=== PATIENT | female | born 1965 | race Caucasian/White ===

== ENCOUNTER → 2016-10-26 | Outpatient (CLI) | payer BC ==
--- NOTE | 2016-10-27 10:00 | MM ---
Reason for exam: screening (asymptomatic). Last mammogram was performed 1 year ago. History: Patient has history of other cancer at age 40. Family history of breast cancer in maternal aunt at age 65. Took hormonal contraceptives for 27 years beginning at age 19. Physical Findings: A clinical breast exam by your physician is recommended on an annual basis and results should be correlated with mammographic findings. MG 3D Screening Mammo W/Cad Bilateral CC and MLO view(s) were taken. Prior study comparison: November 04, 2015, left breast MG 3d work up w/cad LT. October 24, 2015, bilateral MG screening mammo w CAD. The breast tissue is heterogeneously dense. This may lower the sensitivity of mammography. Finding: There is a 4 mm obscured oval mass in the subareolar position of the right breast. Questionable distortion in the left upper outer quadrant. ASSESSMENT: Incomplete: need additional imaging evaluation, BI-RAD 0 RECOMMENDATION: Special view mammogram of the left breast. Ultrasound of the right breast. [facility] will attempt to contact patient to return for supplemental views and ultrasound.
== END | disposition home or self-care (01) ==
LOC: RADMAMWWP 16:57
PROVIDERS: ATTEND Obstetrics & Gynecology
DX: Z12.31 Encounter for screening mammogram for malignant neoplasm of breast (principal)
CPT/HCPCS: 77063; G0202

== ENCOUNTER → 2016-10-27 | Outpatient (CLI) | payer BC ==
--- NOTE | 2016-10-28 08:10 | MM ---
Reason for exam: additional evaluation requested from abnormal screening. Last mammogram was performed less than 1 month ago. History: Patient has history of other cancer at age 40. Family history of breast cancer in maternal aunt at age 65. Took hormonal contraceptives for 27 years beginning at age 19. Physical Findings: Nurse did not find any significant physical abnormalities on exam. MG 3D Work Up W/Cad LT CC and MLO view(s) were taken of the left breast. Prior study comparison: October 26, 2016, bilateral MG 3d screening mammo w/cad. November 04, 2015, left breast MG 3d work up w/cad LT. Finding: Architectural distortion in the upper outer quadrant of the left breast. These results were verbally communicated with the patient and result sheet given to the patient on 10/27/16. ASSESSMENT: Suspicious, BI-RAD 4 RECOMMENDATION: Surgical consultation and stereotactic core biopsy of the left breast. Called Dr. Graf with mammographic findings and has scheduled an appointment for the patient for 10/29/[address] Candelaria. PRELIMINARY REPORT CALLED AND FAXED TO DR. CANDELARIA ON 10/28/16 AT 300/TP.
--- NOTE | 2016-10-28 08:10 | USB ---
Reason for exam: additional evaluation requested from abnormal screening. History: Patient has history of other cancer at age 40. Family history of breast cancer in maternal aunt at age 65. Took hormonal contraceptives for 27 years beginning at age 19. US Breast Workup Limited RT Right breast ultrasound demonstrates no cystic or solid lesion seen. These results were verbally communicated with the patient and result sheet given to the patient on 10/28/16. ASSESSMENT: Probably benign, BI-RAD 3 RECOMMENDATION: Ultrasound of the right breast in 6 months.
== END | disposition home or self-care (01) ==
LOC: RADMAMWWP 14:19
PROVIDERS: ATTEND Obstetrics & Gynecology
DX: R92.8 Other abnormal and inconclusive findings on diagnostic imaging of breast (principal)
CPT/HCPCS: 76642; G0206; G0279

== ENCOUNTER → 2016-11-05 | Day surgery (SDC) | payer BC ==
--- NOTE | 2016-11-05 11:55 | USB ---
Reason for exam: additional evaluation requested from abnormal screening. History: Patient has history of other cancer at age 40. Family history of breast cancer in maternal aunt at age 65. Took hormonal contraceptives for 27 years beginning at age 19. US Breast Workup Limited LT Left breast ultrasound demonstrates a 0.21 x 0.15 x 0.29cm lesion too small to characterize at 1 o'clock. Targeted 6 month follow up recommended. These results were verbally communicated with the patient and result sheet given to the patient on 11/05/16. ASSESSMENT: Probably benign, BI-RAD 3 RECOMMENDATION: Follow-up diagnostic mammogram and ultrasound of the left breast in 6 months. (ultrasound can be targeted to [address]) [facility]
--- NOTE | 2016-11-05 14:43 | MM ---
EXAMINATION TYPE: MG discontinued stereo core LT DATE OF EXAM: 11/05/2016 10:46 AM COMPARISON: 10/26/2016, 10/27/2016, 09/05/2014 CLINICAL HISTORY: 51-year-old female referred for stereotactic core needle biopsy for architectural d istortion. TECHNIQUE and FINDINGS: The patient was placed on the stereotactic table and planning images were obtained. The questioned ar ea of architectural distortion in the upper outer quadrant could not be reproduced. There was no disc ernible target for biopsy. Findings were discussed with the patient. Ultrasound of the left upper outer quadrant is recommended . RECOMMENDATION: Left upper outer quadrant ultrasound.
== END ==
LOC: RADMAMWWP 08:33
PROVIDERS: ATTEND Surgery
DX: R92.8 Other abnormal and inconclusive findings on diagnostic imaging of breast (principal)

== ENCOUNTER 2016-11-14 18:01 | Emergency (ER) | payer BC ==
[2016-11-14 18:18] VITALS: BP 148/71; PULSE 68; RESP 20; TEMP 97.8
--- NOTE | 2016-11-14 18:55 | ED ---
General Adult HPI - General Chief complaint: Extremity Injury, Lower Stated complaint: Left ankle pain Time Seen by Provider: 11/14/16 18:52 Source: patient, RN notes reviewed Mode of arrival: ambulatory Limitations: no limitations - History of Present Illness Initial comments: This is a 51-year-old female presents with left ankle pain that started around 4 :30 PM. Patient states she is walking in her back yard and stepped in a hole rolling her ankle. Patient has been walking on the ankle but states the pain is increased. Patient is noticing swelling to the lateral aspect of the left ankle. Patient denies any numbness/weakness or tingling. Patient is not on any blood thinners.Patient denies any recent fever, chills, shortness breath, chest pain, abdominal pain, nausea/vomiting/diarrhea, back pain, hematuria, headache, or visual changes, or any other complaints. - Related Data Home Medications Medication Instructions Recorded Confirmed ALPRAZolam [Xanax] 0.25 mg PO BID PRN 04/16/14 11/11/14 Dicyclomine [Bentyl] 10 mg PO TID PRN 04/16/14 11/11/14 Famotidine [Pepcid] 10 mg PO DAILY PRN 04/16/14 11/11/14 Fluticasone/Salmeterol [Advair 1 puff INHALATION Q12HR 04/16/14 11/11/14 500-50 Diskus] Multivitamins, Thera [Multivitamin] 1 each PO DAILY 04/16/14 11/11/14 levETIRAcetam [Keppra] 500 mg PO Q12HR 04/16/14 11/11/14 Meclizine [Antivert] 25 mg PO Q8HR PRN 05/28/14 11/11/14 Albuterol Inhaler [Ventolin Hfa 2 inhalation INHALATION Q6H PRN 06/11/14 Inhaler] Cholecalciferol [Vitamin D3] 1 tab PO DAILY 06/11/14 11/11/14 Acetaminophen Tab [Tylenol] 325 mg PO DIRECTED PRN 11/05/14 11/11/14 Atenolol [Tenormin] 25 mg PO DAILY 11/05/14 11/11/14 Fluticasone Propionate [Flonase] 1 spray EA NOSTRIL DIRECTED PRN 11/05/1405/18 Levothyroxine Sodium [Synthroid] 25 mcg PO DAILY 11/05/14 11/11/14 Atenolol [Tenormin] 25 mg PO DAILY 11/11/14 11/11/14 Flecainide [Tambocor] 50 mg PO Q12HR 11/11/14 11/11/14 Previous Rx's Medication Instructions Recorded Cyclobenzaprine [Flexeril] 10 mg PO TID PRN #90 tab 06/12/14 Triamcinolone 0.1% Cream [Kenalog] 1 applicatio TOPICAL TID #60 gram 11/11/14 Allergies Allergy/AdvReac Type Severity Reaction Status Date / Time venom-honey bee Allergy Severe Swelling Verified 11/14/16 18:18 [bee venom (honey bee)] chlorhexidine Allergy Rash/Hives Verified 11/14/16 18:18 latex Allergy Rash/Hives, Verified 11/14/16 18:18 itching shellfish derived Allergy per Verified 11/14/16 18:18 allergy testing tramadol Allergy Nausea & Verified 11/14/16 18:18 Vomiting codeine AdvReac Confusion Verified 11/14/16 18:18 hydrocodone bitartrate AdvReac dizziness Verified 11/14/16 18:18 [From [place]] sulfamethoxazole AdvReac Rapid Verified 11/14/16 18:18 [From Bactrim] Heart Rate trimethoprim [From Bactrim] AdvReac Rapid Verified 11/14/16 18:18 Heart Rate adhesive steri-strips Allergy itching,wel Uncoded 11/14/16 18:18 ts shrimp Allergy per Uncoded 11/14/16 18:18 allergy testing narcotics AdvReac Nausea Uncoded 11/14/16 18:18 Review of Systems ROS Statement: Those systems with pertinent positive or pertinent negative responses have been documented in the HPI. ROS Other: All systems not noted in ROS Statement are negative. Past Medical History Past Medical History: Asthma, Cancer, Seizure Disorder Additional Past Medical History / Comment(s): colon CA, closed head injury 2004, "silent seizures", heart "regurgitation", dizziness, sometimes "low blood pressure", arthritis in neck, hx fx nose-sinus problems. History of Any Multi-Drug Resistant Organisms: None Reported Past Surgical History: Appendectomy, Bowel Resection, Section, Cholecystectomy, Orthopedic Surgery, Tonsillectomy Additional Past Surgical History / Comment(s): Lasik, rt foot bunionectomy, nasal surgery, HEART CATH Past Anesthesia/Blood Transfusion Reactions: Family History of Problems w/ Anesthesia, Motion Sickness, Postoperative Nausea & Vomiting (PONV) Additional Past Anesthesia/Blood Transfusion Reaction / Comment(s): dizziness and low BP, diff IV starts. pt mother has diff coming out of anesthesia. Past Psychological History: No Psychological Hx Reported Smoking Status: Never smoker Past Alcohol Use History: Rare Past Drug Use History: None Reported - Past Family History Father Family Medical History: Cancer Mother Family Medical History: Cancer Sister(s) Family Medical History: Cancer General Exam - General Exam Comments Initial Comments: General: The patient is awake and alert, in no distress, and does not appear acutely ill. Neck: The neck is supple, there is no tenderness or JVD. Cardiovascular: There is a regular rate and rhythm. No murmur, rub or gallop is appreciated. Respiratory: Lungs are clear to auscultation, respirations are non-labored, breath sounds are equal. No wheezes, stridor, rales, or rhonchi. Musculoskeletal: There is some mild tenderness to palpation over the lateral aspect of the left ankle with some localized swelling and faint ecchymosis to this area. Patient also has some tenderness to the anterior medial aspect of the left ankle that she states is worse than the pain on the lateral aspect of left ankle with palpation. There is no tenderness to palpation of the lateral aspect of the left foot. Full range of motion, strength 5/5 and Sensation intact. Dorsalis pedis and posterior tibial pulses are 2+ bilaterally. Capillary refill is normal at less than 2 seconds. Neurological: A&O x 3. CN II-XII intact, There are no obvious motor or sensory deficits. Coordination appears grossly intact. Speech is normal. Skin: Skin is warm and dry and no rashes or lesions are noted. Psychiatric: Normal mood and affect. Limitations: no limitations Course Vital Signs 11/14/16 18:16 Temperature 97.8 F Pulse Rate 68 Respiratory 20 Rate Blood Pressure 148/71 O2 Sat by Pulse 98 Oximetry Medical Decision Making - Medical Decision Making This is a 59-year-old female presents with left ankle pain since 4:30. On physical exam There is some mild tenderness to palpation over the lateral aspect of the left ankle with some localized swelling and faint ecchymosis to this area. Patient also has some tenderness to the anterior medial aspect of the left ankle that she states is worse than the pain on the lateral aspect of left ankle with palpation. There is no tenderness to palpation of the lateral aspect of the left foot. Full range of motion, strength 5/5 and Sensation intact. Dorsalis pedis and posterior tibial pulses are 2+ bilaterally. Capillary refill is normal at less than 2 seconds. X-rays of the left foot and ankle were done and reviewed showing: X-ray left foot: No acute abnormality of the left foot. X-ray Left ankle: Soft tissue swelling. No fracture seen. Reports read by Dr. Singh. I reviewed the x- ray and noticed a possible avulsion defect to the medial aspect of the talus and this correlates with the patient's maximal point tenderness. Discussed results with patient. At this time patient will be given a posterior OCL splint. I discussed nonweightbearing to left lower extremity and use of crutches. I discussed the patient should follow-up with orthopedics in the next 1-2 days. I discussed return parameters.A posterior OCL splint to the left lower extremity was placed. Neurovascular was rechecked and is intact. Patient was instructed to stay non-weightbearing to the left lower extremity. Patient was instructed to rest, ice, elevate and splint on until follow-up with orthopedics. . Patient will be given crutches. Discussed with patient to follow-up with orthopedics in the next 1-2 days. Please return to the [facility] symptoms worsen or for any other concerns. Patient was receptive to this plan and patient will be discharged home. Disposition Clinical Impression: Left ankle sprain Disposition: HOME SELF-CARE Condition: Good Instructions: Ankle Sprain (ED) Additional Instructions: Please rest, ice, elevate, and use splint for support. Please stay nonweightbearing to the left lower extremity and use crutches. Please use over- the-counter Motrin and/or Tylenol for pain. Please follow up with orthopedics tomorrow or as soon as possible. Please return to the [facility] for any worsening symptoms or for any further concerns. Referrals: Macario Cotton MD [Primary Care Provider] - 1-2 days Ramon Moss DO [Doctor of Osteopathic Medicine] - 1-2 days Time of Disposition: 19:27
--- NOTE | 2016-11-14 19:11 | XR ---
EXAMINATION TYPE: XR ankle complete LT DATE OF EXAM: 11/14/2016 7:02 PM COMPARISON: NONE HISTORY: Injury and pain TECHNIQUE: 3 views FINDINGS: There is soft tissue swelling over the lateral malleolus. Ankle mortise is anatomic. There is an Achilles calcaneal spur. IMPRESSION: Soft tissue swelling. No fracture seen.
--- NOTE | 2016-11-14 19:11 | XR ---
EXAMINATION TYPE: XR foot complete LT DATE OF EXAM: 11/14/2016 7:02 PM COMPARISON: NONE HISTORY: Injury and pain TECHNIQUE: 3 views FINDINGS: There is mild hallux valgus. I see no fracture nor dislocation. Metatarsals are intact. IMPRESSION: No acute abnormality of the left foot.
== END 2016-11-14 19:25 | disposition home or self-care (01) ==
LOC: EC 18:01
DX: S93.402A Sprain of unspecified ligament of left ankle, initial encounter (principal); J45.909 Unspecified asthma, uncomplicated; G40.909 Epilepsy, unspecified, not intractable, without status epilepticus; Z85.038 Personal history of other malignant neoplasm of large intestine; M13.88 Other specified arthritis, other site; Z79.51 Long term (current) use of inhaled steroids; Z79.899 Other long term (current) drug therapy; Z91.013 Allergy to seafood; Z91.040 Latex allergy status; Z91.030 Bee allergy status; Z88.2 Allergy status to sulfonamides; Z88.5 Allergy status to narcotic agent; Z88.6 Allergy status to analgesic agent; Z88.8 Allergy status to other drugs, medicaments and biological substances; Z91.09 Other allergy status, other than to drugs and biological substances; W17.2XXA Fall into hole, initial encounter; Y92.096 Garden or yard of other non-institutional residence as the place of occurrence of the external cause
CPT/HCPCS: 29515; 99283

== ENCOUNTER → 2016-11-24 | Outpatient (CLI) | payer BC ==
--- NOTE | 2016-11-24 18:19 | XR ---
EXAMINATION TYPE: XR KUB DATE OF EXAM: 11/24/2016 5:04 PM COMPARISON: 12/13/2013 HISTORY: Abdominal pain TECHNIQUE: 2 views FINDINGS: There is no sign of intestinal obstruction or pneumoperitoneum. Fecal pattern is normal. Th ere are clips from cholecystectomy. There is no sign of a mass. There are no pathologic calcification s over the kidneys. IMPRESSION: Nonacute abdomen. No change.
== END | disposition home or self-care (01) ==
LOC: RADXRMAIN 16:49
PROVIDERS: ATTEND Family Medicine
DX: K52.9 Noninfective gastroenteritis and colitis, unspecified (principal)
CPT/HCPCS: 74000

== ENCOUNTER 2016-12-27 19:50 | Emergency (ER) | payer BC ==
[2016-12-27] MEDS ORDERED: DIAZEPAM 5 MG/ML 2 ML SYRINGE IVP STA (20:16)
[2016-12-27] MEDS ORDERED: MECLIZINE 12.5 MG TAB PO STA (20:16)
--- NOTE | 2016-12-27 20:20 | ED ---
General Adult HPI - General Chief complaint: Chest Pain Stated complaint: Chest pain/Nausea Time Seen by Provider: 12/27/16 20:00 Source: patient, RN notes reviewed Mode of arrival: wheelchair Limitations: no limitations - History of Present Illness Initial comments: This is a 51-year-old female who presents to the emergency department complaining of sudden onset of dizziness and nausea. Patient states she has vomited as well. Patient states about 2 hours ago she was driving a car and all of a sudden she became very dizzy she says things felt like they were spinning became nauseated got home and walked into the house he was very unsteady on her feet she laid down the room was spinning and she began vomiting. Patient denies any headache patient denies any numbness or weakness. Patient states she has no blurred vision. Patient denies any chest pain or palpitations she says she does have a little tightness in her chest but no pain. Patient denies any fever chills or cough. Patient denies any history of vertigo. Patient denies any abdominal pain patient denies nausea vomiting diarrhea. - Related Data Home Medications Medication Instructions Recorded Confirmed ALPRAZolam [Xanax] 0.25 mg PO BID PRN 04/16/14 11/11/14 Dicyclomine [Bentyl] 10 mg PO TID PRN 04/16/14 11/11/14 Famotidine [Pepcid] 10 mg PO DAILY PRN 04/16/14 11/11/14 Fluticasone/Salmeterol [Advair 1 puff INHALATION Q12HR 04/16/14 11/11/14 500-50 Diskus] Multivitamins, Thera [Multivitamin 1 each PO DAILY 04/16/14 11/11/14 (formulary)] levETIRAcetam [Keppra] 500 mg PO Q12HR 04/16/14 11/11/14 Meclizine [Antivert] 25 mg PO Q8HR PRN 05/28/14 11/11/14 Albuterol Inhaler [Ventolin Hfa 2 inhalation INHALATION Q6H PRN 06/11/14 Inhaler] Cholecalciferol [Vitamin D3] 1 tab PO DAILY 06/11/14 11/11/14 Acetaminophen Tab [Tylenol] 325 mg PO DIRECTED PRN 11/05/14 11/11/14 Atenolol [Tenormin] 25 mg PO DAILY 11/05/14 11/11/14 Fluticasone Propionate [Flonase] 1 spray EA NOSTRIL DIRECTED PRN 11/05/1405/18 Levothyroxine Sodium [Synthroid] 25 mcg PO DAILY 11/05/14 11/11/14 Atenolol [Tenormin] 25 mg PO DAILY 11/11/14 11/11/14 Flecainide [Tambocor] 50 mg PO Q12HR 11/11/14 11/11/14 Previous Rx's Medication Instructions Recorded Cyclobenzaprine [Flexeril] 10 mg PO TID PRN #90 tab 06/12/14 Triamcinolone 0.1% Cream [Kenalog] 1 applicatio TOPICAL TID #60 gram 11/11/14 Meclizine [Antivert] 25 mg PO TID #20 tab 12/27/16 Allergies Allergy/AdvReac Type Severity Reaction Status Date / Time venom-honey bee Allergy Severe Swelling Verified 12/27/16 20:05 [bee venom (honey bee)] chlorhexidine Allergy Rash/Hives Verified 12/27/16 20:05 latex Allergy Rash/Hives, Verified 12/27/16 20:05 itching shellfish derived Allergy per Verified 12/27/16 20:05 allergy testing tramadol Allergy Nausea & Verified 12/27/16 20:05 Vomiting codeine AdvReac Confusion Verified 12/27/16 20:05 hydrocodone bitartrate AdvReac dizziness Verified 12/27/16 20:05 [From [place]] sulfamethoxazole AdvReac Rapid Verified 12/27/16 20:05 [From Bactrim] Heart Rate trimethoprim [From Bactrim] AdvReac Rapid Verified 12/27/16 20:05 Heart Rate adhesive steri-strips Allergy itching,wel Uncoded 12/27/16 20:05 ts shrimp Allergy per Uncoded 12/27/16 20:05 allergy testing narcotics AdvReac Nausea Uncoded 12/27/16 20:05 Review of Systems ROS Statement: Those systems with pertinent positive or pertinent negative responses have been documented in the HPI. ROS Other: All systems not noted in ROS Statement are negative. Past Medical History Past Medical History: Asthma, Cancer, Seizure Disorder Additional Past Medical History / Comment(s): colon CA, closed head injury 2005, "silent seizures", heart "regurgitation", dizziness, sometimes "low blood pressure", arthritis in neck, hx fx nose-sinus problems. History of Any Multi-Drug Resistant Organisms: None Reported Past Surgical History: Appendectomy, Bowel Resection, Section, Cholecystectomy, Orthopedic Surgery, Tonsillectomy Additional Past Surgical History / Comment(s): Lasik, rt foot bunionectomy, nasal surgery, HEART CATH Past Anesthesia/Blood Transfusion Reactions: Family History of Problems w/ Anesthesia, Motion Sickness, Postoperative Nausea & Vomiting (PONV) Additional Past Anesthesia/Blood Transfusion Reaction / Comment(s): dizziness and low BP, diff IV starts. pt mother has diff coming out of anesthesia. Past Psychological History: No Psychological Hx Reported Smoking Status: Never smoker Past Alcohol Use History: Occasional Past Drug Use History: None Reported - Past Family History Father Family Medical History: Cancer Mother Family Medical History: Cancer Sister(s) Family Medical History: Cancer General Exam - General Exam Comments Initial Comments: GENERAL: Patient is well-developed and well-nourished. Patient is nontoxic and well- hydrated and is in mild distress. ENT: Neck is soft and supple. No significant lymphadenopathy is noted. Oropharynx is clear. Moist mucous membranes. Neck has full range of motion without eliciting any pain. EYES: The sclera were anicteric and conjunctiva were pink and moist. Extraocular movements were intact and pupils were equal round and reactive to light. Eyelids were unremarkable. PULMONARY: Unlabored respirations. Good breath sounds bilaterally. No audible rales rhonchi or wheezing was noted. CARDIOVASCULAR: There is a regular rate and rhythm without any murmurs gallops or rubs. ABDOMEN: Soft and nontender with normal bowel sounds. No palpable organomegaly was noted. There is no palpable pulsatile mass. SKIN: Skin is clear with no lesions or rashes and otherwise unremarkable. NEUROLOGIC: Patient is alert and oriented x3. Cranial nerves II through XII are grossly intact. Motor and sensory are also intact. Normal speech, volume and content. Symmetrical smile. MUSCULOSKELETAL: Normal extremities with adequate strength and full range of motion. LYMPHATICS: No significant lymphadenopathy is noted PSYCHIATRIC: Normal psychiatric evaluation. Normal interpersonal interactions appears functionally intact in deals appropriately with others. No signs of depression. No signs of anxiety. Limitations: no limitations Course Vital Signs 12/27/16 19:55 Temperature 97.6 F Pulse Rate 97 Respiratory 16 Rate Blood Pressure 168/89 O2 Sat by Pulse 99 Oximetry Medical Decision Making - Medical Decision Making EKG shows normal sinus rhythm at 71 bpm. It was 184 QRS is 88 QT interval 384 QTC is 417. Patient's EKG shows some flattening of the T waves in the precordial leads. Patient ambulated around the emergency department without problem and she stated she felt considerably better. CT of her brain showed no acute abnormality. Chest x-ray showed no acute abnormality - Lab Data Result diagrams: 12/27/16 20:37 12/27/16 20:37 Lab Results 12/27/16 12/27/16 12/27/16 Range/Units 20:37 20:37 20:37 WBC 6.8 (3.8-10.6) k/uL RBC 4.00 (3.80-5.40) m/uL Hgb 12.6 (11.4-16.0) gm/dL Hct 37.5 (34.0-46.0) % MCV 93.6 (80.0-100.0) fL MCH 31.4 (25.0-35.0) pg MCHC 33.6 (31.0-37.0) g/dL RDW 12.0 (11.5-15.5) % Plt Count 241 (150-450) k/uL Neutrophils % 58 % Lymphocytes % 30 % Monocytes % 7 % Eosinophils % 1 % Basophils % 1 % Neutrophils # 3.9 (1.3-7.7) k/uL Lymphocytes # 2.1 (1.0-4.8) k/uL Monocytes # 0.5 (0-1.0) k/uL Eosinophils # 0.1 (0-0.7) k/uL Basophils # 0.0 (0-0.2) k/uL PT (9.0-12.0) sec INR (<1.1) APTT (22.0-30.0) sec Sodium 142 (137-145) mmol/L Potassium 4.1 (3.5-5.1) mmol/L Chloride 105 (98-107) mmol/L Carbon Dioxide 26 (22-30) mmol/L Anion Gap 11 mmol/L BUN 14 (7-17) mg/dL Creatinine 0.70 (0.52-1.04) mg/dL Est GFR (MDRD) Af Amer >60 (>60 ml/min/1.73 sqM) Est GFR (MDRD) Non-Af >60 (>60 ml/min/1.73 sqM) Glucose 86 (74-99) mg/dL Calcium 9.1 (8.4-10.2) mg/dL Magnesium 1.9 (1.6-2.3) mg/dL Total Bilirubin 0.3 (0.2-1.3) mg/dL AST 19 (14-36) U/L ALT 24 (9-52) U/L Alkaline Phosphatase 64 (38-126) U/L Total Creatine Kinase 43 (30-135) U/L CK-MB (CK-2) 0.4 (0.0-2.4) ng/mL CK-MB (CK-2) Rel Index 0.9 Troponin I <0.012 (0.000-0.034) ng/mL Total Protein 6.9 (6.3-8.2) g/dL Albumin 4.1 (3.5-5.0) g/dL 12/27/16 Range/Units 20:37 WBC (3.8-10.6) k/uL RBC (3.80-5.40) m/uL Hgb (11.4-16.0) gm/dL Hct (34.0-46.0) % MCV (80.0-100.0) fL MCH (25.0-35.0) pg MCHC (31.0-37.0) g/dL RDW (11.5-15.5) % Plt Count (150-450) k/uL Neutrophils % % Lymphocytes % % Monocytes % % Eosinophils % % Basophils % % Neutrophils # (1.3-7.7) k/uL Lymphocytes # (1.0-4.8) k/uL Monocytes # (0-1.0) k/uL Eosinophils # (0-0.7) k/uL Basophils # (0-0.2) k/uL PT 10.0 (9.0-12.0) sec INR 1.0 (<1.1) APTT 25.2 (22.0-30.0) sec Sodium (137-145) mmol/L Potassium (3.5-5.1) mmol/L Chloride (98-107) mmol/L Carbon Dioxide (22-30) mmol/L Anion Gap mmol/L BUN (7-17) mg/dL Creatinine (0.52-1.04) mg/dL Est GFR (MDRD) Af Amer (>60 ml/min/1.73 sqM) Est GFR (MDRD) Non-Af (>60 ml/min/1.73 sqM) Glucose (74-99) mg/dL Calcium (8.4-10.2) mg/dL Magnesium (1.6-2.3) mg/dL Total Bilirubin (0.2-1.3) mg/dL AST (14-36) U/L ALT (9-52) U/L Alkaline Phosphatase (38-126) U/L Total Creatine Kinase (30-135) U/L CK-MB (CK-2) (0.0-2.4) ng/mL CK-MB (CK-2) Rel Index Troponin I (0.000-0.034) ng/mL Total Protein (6.3-8.2) g/dL Albumin (3.5-5.0) g/dL Disposition Clinical Impression: Vertigo Disposition: HOME SELF-CARE Condition: Good Instructions: Vertigo (ED) Prescriptions: Meclizine [Antivert] 25 mg PO TID #20 tab Referrals: Macario Cottno MD [Primary Care Provider] - 1-2 days Time of Disposition: 21:48
[2016-12-27] MEDS ORDERED: ONDANSETRON 4 MG/2 ML VIAL IVP STA (20:32)
[2016-12-27 20:53] LABS: Basophils % (A) 1 %; CH 31.5; CHCM 33.8; Eosinophils # (A) 0.1 k/uL (0-0.7); Eosinophils % (A) 1 %; HCT 37.5 % (34.0-46.0); HDW 2.41; HGB 12.6 gm/dL (11.4-16.0); Luc # (Auto) 0.24; Luc % (Auto) 4; Lymphocytes # (A) 2.1 k/uL (1.0-4.8); Lymphocytes % (A) 30 %; MCH 31.4 pg (25.0-35.0); MCHC 33.6 g/dL (31.0-37.0); MCV 93.6 fL (80.0-100.0); Monocytes # (A) 0.5 k/uL (0-1.0); Monocytes % (A) 7 %; Neutrophils # (A) 3.9 k/uL (1.3-7.7); Neutrophils % (A) 58 %; WBC 6.8 k/uL (3.8-10.6); WBC (Perox) 6.94
[2016-12-27 21:04] LABS: Partial Thromboplastin Time 25.2 sec (22.0-30.0)
--- NOTE | 2016-12-27 21:16 | CT ---
EXAMINATION TYPE: CT brain wo con DATE OF EXAM: 12/27/2016 9:02 PM COMPARISON: 05/10/2013 HISTORY: Patient complains of dizziness, nausea, and vomiting. CT DLP: 750.9 mGycm Automated exposure control for dose reduction was used. FINDINGS: Ventricles and sulci appear normal. There is no mass effect nor midline shift. There is no sign of in tracranial hemorrhage. The calvarium is intact. IMPRESSION: Negative unenhanced head CT scan. No change.
--- NOTE | 2016-12-27 21:20 | XR ---
EXAMINATION TYPE: XR chest 2V DATE OF EXAM: 12/27/2016 8:53 PM COMPARISON: 03/30/2016 HISTORY: Chest pain TECHNIQUE: Frontal and lateral views of the chest are obtained. FINDINGS: Heart and mediastinum are normal. Lungs are clear. Diaphragm is normal. Bony thorax is int act. Pulmonary vascularity is normal. There are chest leads. IMPRESSION: Normal chest. No change.
[2016-12-27 21:23] LABS: Creatine Kinase 43 U/L (30-135)
[2016-12-27 21:25] LABS: ALT 24 U/L (9-52); AST 19 U/L (14-36); Alkaline Phosphatase 64 U/L (38-126); Anion Gap 11 mmol/L; Blood Urea Nitrogen 14 mg/dL (7-17); Calcium 9.1 mg/dL (8.4-10.2); Carbon Dioxide 26 mmol/L (22-30); Chloride 105 mmol/L (98-107); Glucose 86 mg/dL (74-99); Magnesium 1.9 mg/dL (1.6-2.3); Non-African American GFR(MDRD) >60 (>60 ml/min/1.73 sqM); Potassium 4.1 mmol/L (3.5-5.1); Sodium 142 mmol/L (137-145); Total Bilirubin 0.3 mg/dL (0.2-1.3); Total Protein 6.9 g/dL (6.3-8.2)
[2016-12-27 21:35] LABS: Creatine Kinase MB 0.4 ng/mL (0.0-2.4); Troponin I <0.012 ng/mL (0.000-0.034)
[2016-12-27] MEDS ORDERED: ONDANSETRON 4 MG ODT STARTER PACK 2 TAB BTL PO STA (21:52)
[2016-12-27 22:11] VITALS: BP 123/68; PULSE 69; RESP 12; TEMP 97.1
== END 2016-12-27 22:37 | disposition home or self-care (01) ==
LOC: EC 19:50
DX: R42 Dizziness and giddiness (principal); G40.909 Epilepsy, unspecified, not intractable, without status epilepticus; Z98.61 Coronary angioplasty status; Z79.51 Long term (current) use of inhaled steroids; Z79.899 Other long term (current) drug therapy; Z85.038 Personal history of other malignant neoplasm of large intestine; Z88.5 Allergy status to narcotic agent; Z91.030 Bee allergy status; Z88.2 Allergy status to sulfonamides; Z88.8 Allergy status to other drugs, medicaments and biological substances
CPT/HCPCS: 36415; 93005; 80053; 82550; 82553; 83735; 84484; 85025; 85610; 85730; 71020; 70450; 96374; 96375; 99285; J3360; J2405; S0119

== ENCOUNTER → 2017-02-09 | Outpatient (CLI) | payer BC ==
--- NOTE | 2017-02-09 07:57 | CT ---
EXAMINATION TYPE: CT abdomen pelvis w con DATE OF EXAM: 02/09/2017 7:37 AM COMPARISON: 09/11/2011 HISTORY: Abd pain, history of carcinoid tumor CT DLP: 1076.9 mGycm CONTRAST: CT scan of the abdomen and pelvis is performed with Oral Contrast and with IV Contrast, patient injec lynnette with 100 mL of Omnipaque 300. FINDINGS: LUNG BASES-: No visible nodule. No infiltrate. LIVER/GB: Cholecystectomy clips are in place. No space occupying hepatic lesion. Biliary tree is of n ormal caliber. PANCREAS: No inflammation. No distinct mass. SPLEEN: No splenic enlargement. No lesion seen. ADRENALS: No nodule. No thickening. KIDNEYS/BLADDER: No hydronephrosis. No nephrolithiasis. No disctinct renal mass. Urinary bladder g rossly unremarkable. BOWEL: Partial right colectomy changes noted. No evidence for recurrent tumor. Normal bowel caliber. No inflammation. GENITAL ORGANS: Lobulated appearance of the uterus suggesting underlying leiomyomatous change. No ad nexal masses seen. LYMPH NODES: No greater than 1cm abdominal or pelvic lymph nodes are appreciated. AORTA: No significant abnormality. OSSEOUS STRUCTURES: No significant abnormality is seen. OTHER: No significant additional abnormality is seen. IMPRESSION: 1. No evidence of tumor recurrence or metastatic disease. 2. Leiomyomatous change of the uterus.
== END | disposition home or self-care (01) ==
LOC: RADCTMAIN 06:54
PROVIDERS: ATTEND Internal Medicine Hematology & Oncology
DX: D25.9 Leiomyoma of uterus, unspecified (principal); Z91.013 Allergy to seafood; Z91.040 Latex allergy status
CPT/HCPCS: 74177; Q9967

== ENCOUNTER → 2017-05-07 | Outpatient (CLI) | payer BC ==
--- NOTE | 2017-05-10 10:02 | MM ---
Reason for exam: follow-up at short interval from prior study. Last mammogram was performed 6 months ago. History: Patient has history of other cancer at age 40. Family history of breast cancer in maternal aunt at age 65. MG discontinued stereo core LT of the left breast, November 05, 2016. Took hormonal contraceptives for 27 years beginning at age 19. Physical Findings: Nurse did not find any significant physical abnormalities on exam. MG 3D Diag Mammo W/Cad LT CC and MLO view(s) were taken of the left breast. Prior study comparison: October 27, 2016, left breast MG 3d work up w/cad LT. October 27, 2016, right breast US breast workup limited RT. The breast tissue is heterogeneously dense. This may lower the sensitivity of mammography. No significant new findings when compared with previous films. These results were verbally communicated with the patient and result sheet given to the patient on 05/07/17. ASSESSMENT: Benign, BI-RAD 2 RECOMMENDATION: Routine screening mammogram of both breasts in 6 months. Back on schedule October 2017.
--- NOTE | 2017-05-10 10:05 | USB ---
Reason for exam: follow-up at short interval from prior study. History: Patient has history of other cancer at age 40. Family history of breast cancer in maternal aunt at age 65. MG discontinued stereo core LT of the left breast, November 05, 2016. Took hormonal contraceptives for 27 years beginning at age 19. US Breast BILAT Right breast ultrasound includes all four quadrants, the retroareolar region and axilla. Finding demonstrate no cystic or solid lesion seen. Left breast ultrasound includes all four quadrants, the retroareolar region and axilla. Finding demonstrate no cystic or solid lesion seen. These results were verbally communicated with the patient and result sheet given to the patient on 05/07/17. ASSESSMENT: Negative, BI-RAD 1 RECOMMENDATION: Routine screening mammogram of both breasts in 6 months. Back on schedule October 2017.
== END | disposition home or self-care (01) ==
LOC: RADMAMWWP 07:39
PROVIDERS: ATTEND Surgery
DX: R92.8 Other abnormal and inconclusive findings on diagnostic imaging of breast (principal)
CPT/HCPCS: 76641; G0206; G0279

== ENCOUNTER → 2017-05-20 | Outpatient (CLI) | payer BC ==
--- NOTE | 2017-05-20 15:59 | XR ---
EXAMINATION TYPE: XR lumbar spine 2 or 3V DATE OF EXAM: 05/20/2017 CLINICAL HISTORY: Low back pain for 3 weeks TECHNIQUE: Frontal and lateral images of the lumbar spine are obtained. COMPARISON: None FINDINGS: There are 5 lumbar type vertebral bodies identified. Cholecystectomy clips are seen within the right upper quadrant. The lumbar spine shows satisfactory alignment without evidence of acute fr acture or dislocation. Vertebral body heights are maintained. Intervertebral disc space narrowing is seen at L3-L4. Mild facet arthropathy is present in L4-L5 and L5-S1. The overlying soft tissue appear s unremarkable. IMPRESSION: 1. No acute fracture or dislocation is seen in the lumbar spine. 2. Mild degenerative disc disease.
== END ==
LOC: RADXRMAIN 15:42
PROVIDERS: ATTEND Physician Assistant
DX: M51.36 Other intervertebral disc degeneration, lumbar region (principal)
CPT/HCPCS: 72100

== ENCOUNTER 2017-09-18 20:45 | Observation (INO) | payer BC ==
[2017-09-18] MEDS ORDERED: ASPIRIN 81 MG PO STA (21:09)
[2017-09-18] MEDS ORDERED: NITROGLYCERIN OINT 1 INCH/GM PACKET TOPICAL STA (21:09)
--- NOTE | 2017-09-18 21:12 | ED ---
General Adult HPI - General Chief complaint: Chest Pain Stated complaint: Chest pain Time Seen by Provider: 09/18/17 21:01 Source: patient, family, RN notes reviewed Mode of arrival: wheelchair Limitations: no limitations - History of Present Illness Initial comments: Patient is a pleasant 52-year-old female presenting to the emergency department with chest discomfort. Symptoms have been on and off over the past couple of days. Discomfort is mild at this time. Discomfort at times is moderate. No dyspnea or nausea. Patient has been belching. There is radiation towards left arm. No diaphoresis. No history of similar symptoms previously. Patient does have a history of some sort of arrhythmia however is unclear what it is. No palpitations today. Discomfort feels like an ache. - Related Data Home Medications Medication Instructions Recorded Confirmed ALPRAZolam [Xanax] 0.25 mg PO BID PRN 04/16/14 11/11/14 Dicyclomine [Bentyl] 10 mg PO TID PRN 04/16/14 11/11/14 Famotidine [Pepcid] 10 mg PO DAILY PRN 04/16/14 11/11/14 Fluticasone/Salmeterol [Advair 1 puff INHALATION Q12HR 04/16/14 11/11/14 500-50 Diskus] Multivitamins, Thera [Multivitamin 1 each PO DAILY 04/16/14 11/11/14 (formulary)] levETIRAcetam [Keppra] 500 mg PO Q12HR 04/16/14 11/11/14 Meclizine [Antivert] 25 mg PO Q8HR PRN 05/28/14 11/11/14 Albuterol Inhaler [Ventolin Hfa 2 inhalation INHALATION Q6H PRN 06/11/14 Inhaler] Cholecalciferol [Vitamin D3] 1 tab PO DAILY 06/11/14 11/11/14 Acetaminophen Tab [Tylenol] 325 mg PO DIRECTED PRN 11/05/14 11/11/14 Atenolol [Tenormin] 25 mg PO DAILY 11/05/14 11/11/14 Fluticasone Propionate [Flonase] 1 spray EA NOSTRIL DIRECTED PRN 11/05/1405/18 Levothyroxine Sodium [Synthroid] 25 mcg PO DAILY 11/05/14 11/11/14 Atenolol [Tenormin] 25 mg PO DAILY 11/11/14 11/11/14 Flecainide [Tambocor] 50 mg PO Q12HR 11/11/14 11/11/14 Previous Rx's Medication Instructions Recorded Cyclobenzaprine [Flexeril] 10 mg PO TID PRN #90 tab 06/12/14 Triamcinolone 0.1% Cream [Kenalog] 1 applicatio TOPICAL TID #60 gram 11/11/14 Meclizine [Antivert] 25 mg PO TID #20 tab 12/27/16 Allergies Allergy/AdvReac Type Severity Reaction Status Date / Time venom-honey bee Allergy Severe Swelling Verified 09/18/17 20:54 [bee venom (honey bee)] chlorhexidine Allergy Rash/Hives Verified 09/18/17 20:54 latex Allergy Rash/Hives, Verified 09/18/17 20:54 itching shellfish derived Allergy per Verified 09/18/17 20:54 allergy testing tramadol Allergy Nausea & Verified 09/18/17 20:54 Vomiting codeine AdvReac Confusion Verified 09/18/17 20:54 hydrocodone bitartrate AdvReac dizziness Verified 09/18/17 20:54 [From [place]] sulfamethoxazole AdvReac Rapid Verified 09/18/17 20:54 [From Bactrim] Heart Rate trimethoprim [From Bactrim] AdvReac Rapid Verified 09/18/17 20:54 Heart Rate adhesive steri-strips Allergy itching,wel Uncoded 09/18/17 20:54 ts shrimp Allergy per Uncoded 09/18/17 20:54 allergy testing narcotics AdvReac Nausea Uncoded 09/18/17 20:54 Review of Systems ROS Statement: Those systems with pertinent positive or pertinent negative responses have been documented in the HPI. ROS Other: All systems not noted in ROS Statement are negative. Constitutional: Denies: fever Eyes: Denies: eye pain ENT: Denies: ear pain Respiratory: Denies: cough, dyspnea Cardiovascular: Reports: chest pain. Denies: palpitations Endocrine: Denies: fatigue Gastrointestinal: Denies: abdominal pain Genitourinary: Denies: dysuria Musculoskeletal: Denies: back pain Skin: Denies: rash Neurological: Denies: weakness Past Medical History Past Medical History: Asthma, Cancer, Seizure Disorder Additional Past Medical History / Comment(s): colon CA, closed head injury 2004, "silent seizures", heart "regurgitation", dizziness, sometimes "low blood pressure", arthritis in neck, hx fx nose-sinus problems. History of Any Multi-Drug Resistant Organisms: None Reported Past Surgical History: Appendectomy, Bowel Resection, Section, Cholecystectomy, Orthopedic Surgery, Tonsillectomy Additional Past Surgical History / Comment(s): Lasik, rt foot bunionectomy, nasal surgery, HEART CATH Past Anesthesia/Blood Transfusion Reactions: Family History of Problems w/ Anesthesia, Motion Sickness, Postoperative Nausea & Vomiting (PONV) Additional Past Anesthesia/Blood Transfusion Reaction / Comment(s): dizziness and low BP, diff IV starts. pt mother has diff coming out of anesthesia. Past Psychological History: No Psychological Hx Reported Smoking Status: Never smoker Past Alcohol Use History: Occasional Past Drug Use History: None Reported - Past Family History Father Family Medical History: Cancer Mother Family Medical History: Cancer Sister(s) Family Medical History: Cancer General Exam Limitations: no limitations General appearance: alert, in no apparent distress Head exam: Present: atraumatic Eye exam: Present: normal appearance, PERRL ENT exam: Present: normal oropharynx Neck exam: Present: normal inspection Respiratory exam: Present: normal lung sounds bilaterally. Absent: chest wall tenderness Cardiovascular Exam: Present: regular rate, normal rhythm Expanded Peripheral pulses: 2+: Radial (R), Radial (L), Posterior Tibialis (R), Posterior Tibialis (L) GI/Abdominal exam: Present: soft. Absent: tenderness Extremities exam: Present: normal inspection. Absent: pedal edema, calf tenderness Neurological exam: Present: alert Psychiatric exam: Present: normal affect, normal mood Skin exam: Present: normal color Course Vital Signs 09/18/17 09/18/17 20:51 22:22 Temperature 97.5 F L Pulse Rate 72 62 Respiratory 20 16 Rate Blood Pressure 149/83 127/83 O2 Sat by Pulse 100 98 Oximetry EKG Findings - EKG Comments: EKG Findings:: Normal sinus rhythm 69. NH 192. QRS 92. QT 406. QTc 435. Normal axis. Normal QRS. No acute ST change. Medical Decision Making - Medical Decision Making Patient reexamined and resting comfortably in bed. Patient symptom-free at this time. Patient and family updated on results and plan. Case was discussed in detail with Dr. Pierce, who will admit for Dr. Cotton. Cardiology will be placed on consult. - Lab Data Result diagrams: 09/18/17 21:27 09/18/17 21:27 Lab Results 09/18/17 09/18/17 09/18/17 Range/Units 21:27 21:27 21:27 WBC 5.6 (3.8-10.6) k/uL RBC 4.40 (3.80-5.40) m/uL Hgb 13.5 (11.4-16.0) gm/dL Hct 41.9 (34.0-46.0) % MCV 95.1 (80.0-100.0) fL MCH 30.7 (25.0-35.0) pg MCHC 32.2 (31.0-37.0) g/dL RDW 13.2 (11.5-15.5) % Plt Count 247 (150-450) k/uL Neutrophils % 53 % Lymphocytes % 36 % Monocytes % 7 % Eosinophils % 2 % Basophils % 1 % Neutrophils # 2.9 (1.3-7.7) k/uL Lymphocytes # 2.0 (1.0-4.8) k/uL Monocytes # 0.4 (0-1.0) k/uL Eosinophils # 0.1 (0-0.7) k/uL Basophils # 0.1 (0-0.2) k/uL PT (9.0-12.0) sec INR (<1.2) APTT (22.0-30.0) sec Sodium 140 (137-145) mmol/L Potassium 4.2 (3.5-5.1) mmol/L Chloride 102 (98-107) mmol/L Carbon Dioxide 27 (22-30) mmol/L Anion Gap 11 mmol/L BUN 17 (7-17) mg/dL Creatinine 0.80 (0.52-1.04) mg/dL Est GFR (MDRD) Af Amer >60 (>60 ml/min/1.73 sqM) Est GFR (MDRD) Non-Af >60 (>60 ml/min/1.73 sqM) Glucose 86 (74-99) mg/dL Calcium 9.6 (8.4-10.2) mg/dL Magnesium 2.0 (1.6-2.3) mg/dL Total Bilirubin 0.3 (0.2-1.3) mg/dL AST 20 (14-36) U/L ALT 28 (9-52) U/L Alkaline Phosphatase 78 (38-126) U/L Total Creatine Kinase 56 (30-135) U/L CK-MB (CK-2) 0.8 (0.0-2.4) ng/mL CK-MB (CK-2) Rel Index 1.4 Troponin I <0.012 (0.000-0.034) ng/mL Total Protein 7.3 (6.3-8.2) g/dL Albumin 4.4 (3.5-5.0) g/dL 09/18/17 Range/Units 21:27 WBC (3.8-10.6) k/uL RBC (3.80-5.40) m/uL Hgb (11.4-16.0) gm/dL Hct (34.0-46.0) % MCV (80.0-100.0) fL MCH (25.0-35.0) pg MCHC (31.0-37.0) g/dL RDW (11.5-15.5) % Plt Count (150-450) k/uL Neutrophils % % Lymphocytes % % Monocytes % % Eosinophils % % Basophils % % Neutrophils # (1.3-7.7) k/uL Lymphocytes # (1.0-4.8) k/uL Monocytes # (0-1.0) k/uL Eosinophils # (0-0.7) k/uL Basophils # (0-0.2) k/uL PT 9.7 (9.0-12.0) sec INR 1.0 (<1.2) APTT 24.9 (22.0-30.0) sec Sodium (137-145) mmol/L Potassium (3.5-5.1) mmol/L Chloride (98-107) mmol/L Carbon Dioxide (22-30) mmol/L Anion Gap mmol/L BUN (7-17) mg/dL Creatinine (0.52-1.04) mg/dL Est GFR (MDRD) Af Amer (>60 ml/min/1.73 sqM) Est GFR (MDRD) Non-Af (>60 ml/min/1.73 sqM) Glucose (74-99) mg/dL Calcium (8.4-10.2) mg/dL Magnesium (1.6-2.3) mg/dL Total Bilirubin (0.2-1.3) mg/dL AST (14-36) U/L ALT (9-52) U/L Alkaline Phosphatase (38-126) U/L Total Creatine Kinase (30-135) U/L CK-MB (CK-2) (0.0-2.4) ng/mL CK-MB (CK-2) Rel Index Troponin I (0.000-0.034) ng/mL Total Protein (6.3-8.2) g/dL Albumin (3.5-5.0) g/dL - Radiology Data Radiology results: image reviewed (Chest x-ray shows no acute process) Disposition Clinical Impression: Chest pain Disposition: ADMITTED IP TO THIS [facility] Referrals: Macario Cotton MD [Primary Care Provider] - 1-2 days Decision Time: 22:44
[2017-09-18 21:37] LABS: Basophils # (A) 0.1 k/uL (0-0.2); Basophils % (A) 1 %; CH 31.1; CHCM 32.8; Eosinophils # (A) 0.1 k/uL (0-0.7); Eosinophils % (A) 2 %; HCT 41.9 % (34.0-46.0); HDW 2.12; HGB 13.5 gm/dL (11.4-16.0); Luc % (Auto) 2; Lymphocytes % (A) 36 %; MCH 30.7 pg (25.0-35.0); MCHC 32.2 g/dL (31.0-37.0); MCV 95.1 fL (80.0-100.0); Mean Platelet Volume 7.2; Monocytes # (A) 0.4 k/uL (0-1.0); Monocytes % (A) 7 %; Neutrophils # (A) 2.9 k/uL (1.3-7.7); Neutrophils % (A) 53 %; RDW 13.2 % (11.5-15.5); WBC 5.6 k/uL (3.8-10.6); WBC (Perox) 5.74
[2017-09-18 21:47] LABS: Partial Thromboplastin Time 24.9 sec (22.0-30.0); Prothrombin Time 9.7 sec (9.0-12.0)
--- NOTE | 2017-09-18 21:48 | XR ---
EXAMINATION: XR chest 2V DATE AND TIME: 09/18/2017 9:43 PM ORDERING PROVIDER: Isreal Davis DO CLINICAL INDICATION: Chest Pain TECHNIQUE: PA and lateral COMPARISON: 12/27/2016 DESCRIPTION: The lungs are clear. The pleural space is negative. The cardiomediastinal silhouette is unremarkable. The skeletal structures are intact without focal findings. The soft tissues are unremarkable. IMPRESSION: NO ACUTE PROCESS.
[2017-09-18 22:01] LABS: ALT 28 U/L (9-52); AST 20 U/L (14-36); Alkaline Phosphatase 78 U/L (38-126); Anion Gap 11 mmol/L; Blood Urea Nitrogen 17 mg/dL (7-17); Calcium 9.6 mg/dL (8.4-10.2); Carbon Dioxide 27 mmol/L (22-30); Chloride 102 mmol/L (98-107); Glucose 86 mg/dL (74-99); Non-African American GFR(MDRD) >60 (>60 ml/min/1.73 sqM); Potassium 4.2 mmol/L (3.5-5.1); Sodium 140 mmol/L (137-145); Total Bilirubin 0.3 mg/dL (0.2-1.3); Total Protein 7.3 g/dL (6.3-8.2)
[2017-09-18 22:02] LABS: Creatine Kinase 56 U/L (30-135)
[2017-09-18 22:15] LABS: Creatine Kinase MB 0.8 ng/mL (0.0-2.4); Troponin I <0.012 ng/mL (0.000-0.034)
[2017-09-18] MEDS ORDERED: NITROGLYCERIN SL TABS 0.4 MG TAB SUBLINGUAL PRN (22:45)
[2017-09-18] MEDS ORDERED: ATENOLOL 12.5 MG TAB PO SCH (23:45)
[2017-09-19 00:03] VITALS: RESP 18; BMI 30.2
[2017-09-19] MEDS: FLECAINIDE 50 MG TAB PO SCH ×2 (00:32→09:11)
[2017-09-19 04:29] LABS: Cholesterol 172 mg/dL (<200); HDL Cholesterol 69 mg/dL (40-60)
[2017-09-19 04:39] LABS: Creatine Kinase 42 U/L (30-135)
[2017-09-19 04:53] LABS: Creatine Kinase MB 0.6 ng/mL (0.0-2.4); Troponin I <0.012 ng/mL (0.000-0.034)
[2017-09-19] MEDS: NITROGLYCERIN OINT 1 INCH/GM PACKET TOPICAL SCH ×2 (06:04→13:06)
[2017-09-19 08:25] VITALS: PULSE 64
[2017-09-19] MEDS ORDERED: ASPIRIN 325 MG TAB PO SCH (09:00)
[2017-09-19] MEDS ORDERED: ATENOLOL 25 MG TAB PO SCH (09:00)
--- NOTE | 2017-09-19 09:20 | P.CRDCN ---
History of Present Illness Consult date: 09/19/17 Consult reason: chest pain History of present illness: 52-year-old lady with history of paroxysmal atrial fibrillation who presented to Hospital complaining of chest pain. She was helping her sister move and did quite a bit of physical work. Initially had left arm discomfort which seemed musculoskeletal. It was mild intensity. Without diaphoresis. Without clear- cut relieving or exacerbating factors. She also found that she had irregular pulse due to this she was concerned and came in to hospital. EKG shows normal sinus rhythm. 3 sets of cardiac enzymes have been negative. Patient had a negative stress echo in September of last year. Given the atypical nature of patient's symptoms and the fact that the myocardial infarction is ruled out she is stable to be discharged home with outpatient follow-up stress test and echocardiogram. Review of Systems Constitutional: Denies chills. Denies fever. Eyes: Denies blurred vision. Denies pain. Ears, nose, mouth and throat: Denies headache. Denies sore throat. Cardiovascular: has chest pain. Denies shortness of breath. Respiratory: Denies cough. Gastrointestinal: Denies abdominal pain. Denies diarrhea. Denies nausea. Denies vomiting. Musculoskeletal: Denies myalgias. Integumentary: Denies pruritus. Denies rash. Neurological: Denies numbness. Denies weakness. Psychiatric: Denies anxiety. Denies depression. Endocrine: Denies fatigue. Denies weight change. Genitourinary: Denies burning, hematuria, frequency of urination. Hematological: No anemia or excess bleeding. Past Medical History Past Medical History: Cancer, Seizure Disorder Additional Past Medical History / Comment(s): colon CA, closed head injury 2004, "silent seizures", heart "regurgitation", dizziness, sometimes "low blood pressure", arthritis in neck, hx fx nose-sinus problems. History of Any Multi-Drug Resistant Organisms: None Reported Past Surgical History: Appendectomy, Bowel Resection, Section, Cholecystectomy, Orthopedic Surgery, Tonsillectomy Additional Past Surgical History / Comment(s): Lasik, rt foot bunionectomy, nasal surgery, HEART CATH Past Anesthesia/Blood Transfusion Reactions: Family History of Problems w/ Anesthesia, Motion Sickness, Postoperative Nausea & Vomiting (PONV) Additional Past Anesthesia/Blood Transfusion Reaction / Comment(s): dizziness and low BP, diff IV starts. pt mother has diff coming out of anesthesia. Past Psychological History: No Psychological Hx Reported Smoking Status: Never smoker Past Alcohol Use History: Occasional Past Drug Use History: None Reported - Past Family History Father Family Medical History: Cancer Additional Family Medical History / Comment(s): lung CA Mother Family Medical History: Cancer Additional Family Medical History / Comment(s): colon CA Sister(s) Family Medical History: Cancer Additional Family Medical History / Comment(s): thyroid CA Medications and Allergies Home Medications Medication Instructions Recorded Confirmed Type ALPRAZolam [Xanax] 0.25 mg PO BID PRN 04/16/14 09/19/17 History Dicyclomine [Bentyl] 10 mg PO TID PRN 04/16/14 09/19/17 History Famotidine [Pepcid] 10 mg PO DAILY PRN 04/16/14 09/19/17 History Meclizine [Antivert] 25 mg PO Q8HR PRN 05/28/14 09/19/17 History Albuterol Inhaler [Ventolin Hfa 2 puff INHALATION RT-Q6H PRN 06/11/14 09/19/17 History Inhaler] Cholecalciferol [Vitamin D3] 1,000 units PO DAILY 06/11/14 09/19/17 History Cyclobenzaprine [Flexeril] 10 mg PO TID PRN #90 tab 06/12/14 09/19/17 Rx Acetaminophen Tab [Tylenol] 325 - 650 mg PO Q4H PRN 11/05/14 09/19/17 History Atenolol [Tenormin] 12.5 mg PO HS 11/05/14 09/19/17 History Fluticasone Propionate [Flonase] 1 spray EA NOSTRIL DAILY PRN 11/05/14 09/19/17 History Levothyroxine Sodium [Synthroid] 25 mcg PO DAILY 11/05/14 09/19/17 History Flecainide [Tambocor] 50 mg PO Q12HR 11/11/14 09/19/17 History Montelukast [Singulair] 10 mg PO HS 09/18/17 09/19/17 History Fexofenadine/Pseudoephedrine 1 tab PO DAILY 09/19/17 09/19/17 History [Deidra-D 24 Hour Tablet] L.acidoph,Paracasei, B.lactis 1 cap PO DAILY 09/19/17 09/19/17 History [Probiotic] Multivitamins, Thera [Multivitamin 1 tab PO DAILY 09/19/17 09/19/17 History (formulary)] Allergies Allergy/AdvReac Type Severity Reaction Status Date / Time venom-honey bee Allergy Severe Swelling Verified 09/19/17 08:51 [bee venom (honey bee)] chlorhexidine Allergy Rash/Hives Verified 09/19/17 08:51 latex Allergy Rash/Hives, Verified 09/19/17 08:51 itching shellfish derived Allergy per Verified 09/19/17 08:51 allergy testing tramadol Allergy Nausea & Verified 09/19/17 08:51 Vomiting codeine AdvReac Confusion Verified 09/19/17 08:51 hydrocodone bitartrate AdvReac dizziness Verified 09/19/17 08:51 [From [place]] sulfamethoxazole AdvReac Rapid Verified 09/19/17 08:51 [From Bactrim] Heart Rate trimethoprim [From Bactrim] AdvReac Rapid Verified 09/19/17 08:51 Heart Rate adhesive steri-strips Allergy itching,wel Uncoded 09/18/17 20:54 ts shrimp Allergy per Uncoded 09/18/17 20:54 allergy testing narcotics AdvReac Nausea Uncoded 09/18/17 20:54 Physical Exam Vitals: Vital Signs Temp Pulse Pulse Resp BP BP BP 09/19/17 08:00 97.5 F L 64 18 89/49 99/58 09/19/17 04:00 96.9 F L 66 18 115/64 09/18/17 23:58 96.9 F L 66 18 131/74 09/18/17 23:15 96.9 F L 98 18 131/74 09/18/17 23:07 98 F 64 16 122/74 09/18/17 22:22 62 16 127/83 09/18/17 20:51 97.5 F L 72 20 149/83 Pulse Ox 09/19/17 08:00 98 09/19/17 04:00 98 09/18/17 23:58 98 09/18/17 23:15 98 09/18/17 23:07 98 09/18/17 22:22 98 09/18/17 20:51 100 Intake and Output 09/18/17 09/19/17 09/19/17 22:59 06:59 14:59 Other: # Voids 0 # Bowel Movements 0 Weight 93.44 kg 95.6 kg General: The patient is awake and alert, in no distress, and does not appear acutely ill. Skin: Skin is warm and dry and no rashes or lesions are noted. Eye: Pupils are equal, round and reactive to light, extra-ocular movements are intact; there is normal conjunctiva bilaterally. Ears, nose, mouth and throat: There are moist mucous membranes and no oral lesions. Neck: The neck is supple, there is no tenderness or JVD. Cardiovascular: There is a regular rate and rhythm. No murmur, rub or gallop is appreciated. Respiratory: Lungs are clear to auscultation, respirations are non-labored, breath sounds are equal. Gastrointestinal: Soft, non-distended, non-tender abdomen without masses or organomegaly noted. There is no rebound or guarding present. Bowel sounds are unremarkable. Back: There is no tenderness to palpation in the midline. There is no obvious deformity. Musculoskeletal: Normal ROM, no tenderness, There is no pedal edema. There is no calf tenderness or swelling. Extremities: No edema. Vascular: Femoral pulse is normal. Posterior tibial pulses are normal .Dorsalis pedis is palpable. Neurological: CN II-XII intact. There are no obvious motor or sensory deficits. Speech is normal. Psychiatric: Cooperative, appropriate mood & affect, normal judgment. Results 09/18/17 21:27 09/18/17 21:27 Cardiac Enzymes 09/18/17 09/18/17 09/19/17 Range/Units 21:27 21:27 03:44 AST 20 (14-36) U/L CK-MB (CK-2) 0.8 0.6 (0.0-2.4) ng/mL Troponin I <0.012 <0.012 (0.000-0.034) ng/mL Coagulation 09/18/17 Range/Units 21:27 PT 9.7 (9.0-12.0) sec APTT 24.9 (22.0-30.0) sec Lipids 09/19/17 Range/Units 03:44 Triglycerides 47 (<150) mg/dL Cholesterol 172 (<200) mg/dL HDL Cholesterol 69 H (40-60) mg/dL CBC 09/18/17 Range/Units 21:27 WBC 5.6 (3.8-10.6) k/uL RBC 4.40 (3.80-5.40) m/uL Hgb 13.5 (11.4-16.0) gm/dL Hct 41.9 (34.0-46.0) % Plt Count 247 (150-450) k/uL Comprehensive Metabolic Panel 09/18/17 Range/Units 21:27 Sodium 140 (137-145) mmol/L Potassium 4.2 (3.5-5.1) mmol/L Chloride 102 (98-107) mmol/L Carbon Dioxide 27 (22-30) mmol/L BUN 17 (7-17) mg/dL Creatinine 0.80 (0.52-1.04) mg/dL Glucose 86 (74-99) mg/dL Calcium 9.6 (8.4-10.2) mg/dL AST 20 (14-36) U/L ALT 28 (9-52) U/L Alkaline Phosphatase 78 (38-126) U/L Total Protein 7.3 (6.3-8.2) g/dL Albumin 4.4 (3.5-5.0) g/dL Current Medications Generic Name Dose Route Start Last Admin Trade Name Freq PRN Reason Stop Dose Admin Aspirin 325 mg 09/19/17 09:00 Aspirin PO DAILY [facility] Atenolol 12.5 mg 09/18/17 23:45 09/19/17 00:31 Tenormin PO 12.5 mg HS MILADIS Administration Flecainide Acetate 50 mg 09/18/17 23:45 09/19/17 00:32 Tambocor PO 50 mg Q12HR [place]IS Administration Nitroglycerin 1 inch 09/19/17 06:00 09/19/17 06:04 Nitro-Bid Oint TOPICAL 1 inch Q6HR [place]IS Administration Nitroglycerin 0.4 mg 09/18/17 22:45 Nitrostat SUBLINGUAL Q5M PRN Chest Pain Intake and Output 09/18/17 09/19/17 09/19/17 22:59 06:59 14:59 Other: # Voids 0 # Bowel Movements 0 Weight 93.44 kg 95.6 kg 09/18/17 21:27 09/18/17 21:27 EKG Interpretations (text) Normal sinus rhythm and within normal limits Assessment and Plan Assessment: Precordial chest pain Paroxysmal atrial fibrillation Myocardial infarction is ruled out. I reviewed lab tests EKGs and old records. Patient is stable to be discharged home. I will schedule an outpatient stress test and echocardiogram
[2017-09-19 10:03] LABS: Creatine Kinase 39 U/L (30-135)
[2017-09-19 10:16] LABS: Creatine Kinase MB 0.5 ng/mL (0.0-2.4); Troponin I <0.012 ng/mL (0.000-0.034)
[2017-09-19] MEDS ORDERED: ALPRAZolam 0.25 MG TAB PO PRN (12:18)
[2017-09-19] MEDS ORDERED: CYCLOBENZAPRINE 10 MG TAB PO PRN (12:18)
[2017-09-19] MEDS ORDERED: FAMOTIDINE 20 MG TAB PO PRN (12:18)
[2017-09-19] MEDS ORDERED: ACETAMINOPHEN TAB 325 MG TAB PO PRN (12:18)
[2017-09-19] MEDS ORDERED: MECLIZINE 25 MG TAB PO PRN (12:18)
[2017-09-19] MEDS ORDERED: FLUTICASONE 50MCG/SPRAY NASAL 16GM EA NOSTRIL PRN (12:18)
[2017-09-19] MEDS ORDERED: DICYCLOMINE 10 MG CAP PO PRN (12:18)
[2017-09-19] MEDS ORDERED: ALBUTEROL NEBULIZED 2.5 MG/3 ML INHALATION PRN (12:18)
[2017-09-19 13:08] VITALS: BP 123/66; TEMP 97.4
--- NOTE | 2017-09-19 16:24 | HP ---
HISTORY AND PHYSICAL DATE OF SERVICE: 09/19/17. CHIEF COMPLAINT: Chest pain. HISTORY OF PRESENT ILLNESS: Patient is a 52-year-old female patient with history of paroxysmal atrial fibrillation, presented to the hospital with a complaint of chest pain, which started when the patient was helping her sister move. Patient claims it was mostly in the left arm and initially did seem musculoskeletal, but later she did have some diaphoresis and shortness of breath with it and the pain was getting worse so she presented to the ED. In the ED, patient's EKG was negative. The patient has had a stress test and stress echo done last September. PAST MEDICAL HISTORY: Significant for seizure disorders and history of CA of the colon, history of closed head injury. History of DJD. PAST SURGICAL HISTORY: History significant for appendectomy, bowel resection, Caesarean section, cholecystectomy, orthopedic surgery, tonsillectomy, left foot bunionectomy and heart catheterization. The patient denies any history of smoking or alcohol abuse. FAMILY HISTORY: Significant for CA of lung in father and CA colon in mother and thyroid cancer in sister. She is off work for 6 weeks. ALLERGIES: THE PATIENT IS ALLERGIC TO CHLORHEXIDINE, LATEX, AND SHELLFISH, TRAMADOL, CODEINE, HYDROCODONE, AND SULFA DRUGS. MEDICATIONS: Patient is on Xanax, Bentyl, Pepcid, Antivert, Ventolin inhaler, vitamin D3, Flexeril and Tylenol and Tenormin, Synthroid, Tambocor, Singulair, and multivitamin. REVIEW OF SYSTEMS: Patient denies any headaches, lightheadedness, dizziness. No nausea, vomiting, diaphoresis. No chest pain at this point. PHYSICAL EXAMINATION: Patient is alert, oriented x3. She does not seem to be in any acute distress. Vital signs: Temperature 97.5, pulse 64, respiration 18, O2 saturation of 100%. Blood pressure: 115/64. HEENT atraumatic, normocephalic. Pupils equal and reactive to light. Extraocular movements intact. Buccal mucosa is moist. NECK: Supple. Lungs are clear to auscultation. No rales, rhonchi, or wheezes. Heart is regular rate and rhythm without murmurs or gallop rhythm. ABDOMEN: Soft, nontender, nondistended. Bowel sounds positive. EXTREMITIES: No edema, clubbing, cyanosis. Musculoskeletal: The patient does exhibit some arm and shoulder stiffness upon range of motion. EXTREMITIES: No edema. Neurological examination cranial nerves 2-12 grossly intact. No gross motor or sensory deficit. LAB: CBC, white blood count of 5.6, hemoglobin 13.5, hematocrit 41.9, and platelet count of 247. Chemical profile sodium 140, potassium 4.2, chloride 102, bicarb 27, BUN 17, creatinine 0.8, and platelet count of 86, AST 20. Cardiac enzymes are negative. ASSESSMENT: 1. Chest pain, rule out acute coronary syndrome. 2. Hypotension, possibly iatrogenic. 3. History of paroxysmal atrial fibrillation. PLAN: Is to admit the patient to do to telemetry. Monitor cardiac enzymes. EKG. Consult Cardiology. Will resume home medications. Monitor blood pressure closely and adjust medications if the blood pressure is low. MMODL / IJN: [id number] /
[2017-09-19] MEDS ORDERED: MONTELUKAST 10 MG TAB PO SCH (21:00)
[2017-09-20] MEDS ORDERED: LEVOTHYROXINE 25 MCG TAB PO SCH (06:30)
--- NOTE | 2017-09-20 07:49 | DS ---
DISCHARGE SUMMARY DATE OF ADMISSION: 09/18/2017. DATE OF DISCHARGE: 09/19/2017. ADMISSION DIAGNOSIS: Chest pain. DISCHARGE DIAGNOSES: 1. Chest pain acute coronary syndrome ruled out. 2. Hypotension, possibly iatrogenic. 3. History of paroxysmal atrial fibrillation. BRIEF HISTORY: Patient is a 52-year-old female patient with history of paroxysmal atrial fibrillation, presented to the ED with a complaint of chest pain. It started while she was helping her sister move. Initially patient had pain in her arm and rested from helping her sister, but then initially the pain was mostly in the left arm, but later was in the chest with some diaphoresis. BRIEF HOSPITAL COURSE: In the ED, patient's EKG was unremarkable. Cardiac enzymes were also negative. The patient claims she had a stress testing done about a year ago. remains stable. Cardiology was consulted. Cardiology deemed chest pain to be atypical. The patient did not have any further complications. Myocardial infarction was ruled out. Cardiology recommended a stress test and echocardiogram as an outpatient. This was discussed with the patient in detail and she was discharged in a stable condition to follow up with primary vice president research and and to continue all current medications. While in the hospital, patient was slightly hypertensive and patient's Tenormin was decreased to 12.5 daily. Further treatment after discharge with outpatient echocardiogram and stress testing. MMODL / IJN: [id number] /
[2017-09-20] MEDS ORDERED: LORATADINE-PSEUDOEPH 5-120 MG 1 EACH TAB.ER.12H PO SCH (09:00)
[2017-09-20] MEDS ORDERED: CHOLECALCIFEROL 1,000 UNIT TAB PO SCH (12:00)
[2017-09-20] MEDS ORDERED: MULTIVITAMINS, THERA 1 EACH TAB PO SCH (12:00)
[2017-09-20] MEDS ORDERED: LACTOBACILLUS ACIDOPH & BULGAR 1 EACH PACKET PO SCH (12:00)
== END 2017-09-19 14:55 | disposition home or self-care (01) ==
LOC: EC 20:45 → 6SEL 22:45
PROVIDERS: ADMIT Family Medicine; ATTEND Family Medicine
DX: R07.2 Precordial pain (principal); I95.9 Hypotension, unspecified; I48.0 Paroxysmal atrial fibrillation; R61 Generalized hyperhidrosis; J45.909 Unspecified asthma, uncomplicated; G40.909 Epilepsy, unspecified, not intractable, without status epilepticus; M19.90 Unspecified osteoarthritis, unspecified site; Z79.51 Long term (current) use of inhaled steroids; Z79.899 Other long term (current) drug therapy; Z91.040 Latex allergy status; Z88.1 Allergy status to other antibiotic agents; Z91.030 Bee allergy status; Z88.5 Allergy status to narcotic agent; Z91.013 Allergy to seafood; Z88.2 Allergy status to sulfonamides; Z91.048 Other nonmedicinal substance allergy status; Z88.8 Allergy status to other drugs, medicaments and biological substances; Z85.038 Personal history of other malignant neoplasm of large intestine
CPT/HCPCS: 99285 ×2; 36415; 93005; 80061; 80053; 82550 ×2; 82553 ×2; 83735; 84484 ×2; 85025; 85610; 85730; 71020; G0378 ×2

== ENCOUNTER → 2017-10-27 | Outpatient (CLI) | payer BC ==
--- NOTE | 2017-10-28 14:05 | XR ---
EXAMINATION TYPE: XR chest 2V DATE OF EXAM: 10/28/2017 COMPARISON: Prior chest x-ray 09/18/2017 HISTORY: Cough TECHNIQUE: Frontal and lateral views of the chest are obtained. FINDINGS: There is no focal air space opacity, pleural effusion, or pneumothorax seen. The cardiac silhouette size is within normal limits. Postop change noted in the cervical spine. There is bronchia l wall thickening. The osseous structures are intact. IMPRESSION: Correlate for bronchitis, reactive airways disease.
== END | disposition home or self-care (01) ==
LOC: RADXRMAIN 17:24
PROVIDERS: ATTEND Physician Assistant
DX: R05 Cough (principal)
CPT/HCPCS: 71046

== ENCOUNTER → 2017-11-02 | Outpatient (CLI) | payer BC ==
--- NOTE | 2017-11-03 06:51 | MM ---
Reason for exam: screening (asymptomatic). Last mammogram was performed 6 months ago. History: Patient has history of other cancer at age 40. Family history of breast cancer in maternal aunt at age 65. MG discontinued stereo core LT of the left breast, November 05, 2016. Took hormonal contraceptives for 27 years beginning at age 19. Physical Findings: A clinical breast exam by your physician is recommended on an annual basis and results should be correlated with mammographic findings. MG 3D Screening Mammo W/Cad Bilateral CC and MLO view(s) were taken. Prior study comparison: May 07, 2017, left breast MG 3d diag mammo w/cad LT. October 27, 2016, left breast MG 3d work up w/cad LT. The breast tissue is heterogeneously dense. This may lower the sensitivity of mammography. There is no discrete abnormality. ASSESSMENT: Negative, BI-RAD 1 RECOMMENDATION: Routine screening mammogram of both breasts in 1 year. Manage patient on a clinical basis (Right nipple symptoms).
== END | disposition home or self-care (01) ==
LOC: RADMAMWWP 11:18
PROVIDERS: ATTEND Obstetrics & Gynecology
DX: Z12.31 Encounter for screening mammogram for malignant neoplasm of breast (principal)
CPT/HCPCS: 77063; 77067

== ENCOUNTER 2018-04-18 15:18 | Emergency (ER) | payer BC ==
[2018-04-18 16:08] LABS: Basophils % (A) 1 %; Eosinophils # (A) 0.1 k/uL (0-0.7); Eosinophils % (A) 3 %; HCT 39.1 % (34.0-46.0); Lymphocytes # (A) 1.5 k/uL (1.0-4.8); Lymphocytes % (A) 28 %; MCH 30.9 pg (25.0-35.0); MCHC 33.2 g/dL (31.0-37.0); Monocytes # (A) 0.4 k/uL (0-1.0); Monocytes % (A) 7 %; Neutrophils # (A) 3.2 k/uL (1.3-7.7); Neutrophils % (A) 61 %; Platelet Count 248 k/uL (150-450); RBC 4.21 m/uL (3.80-5.40); RDW 12.1 % (11.5-15.5); WBC 5.3 k/uL (3.8-10.6)
[2018-04-18 16:18] LABS: ALT 29 U/L (9-52); AST 31 U/L (14-36); Albumin 4.4 g/dL (3.5-5.0); Alkaline Phosphatase 76 U/L (38-126); Anion Gap 10 mmol/L; Blood Urea Nitrogen 11 mg/dL (7-17); Calcium 9.3 mg/dL (8.4-10.2); Carbon Dioxide 25 mmol/L (22-30); Chloride 105 mmol/L (98-107); Glucose 91 mg/dL (74-99); Potassium 4.1 mmol/L (3.5-5.1); Sodium 140 mmol/L (137-145); Total Bilirubin 0.4 mg/dL (0.2-1.3); Total Protein 7.2 g/dL (6.3-8.2)
--- NOTE | 2018-04-18 19:43 | ED ---
General Adult HPI - General Chief complaint: Recheck/Abnormal Lab/Rx Stated complaint: Chemical exposure Time Seen by Provider: 04/18/18 19:02 Source: patient, RN notes reviewed Mode of arrival: ambulatory Limitations: no limitations - History of Present Illness Initial comments: This is a 52-year-old female who presents to the emergency department with chief complaint of dizziness, headache and excess salivation. Patient states that she has a history of headaches. She states that she is currently in PT for a right-sided neck issue that has been causing headaches. She also reports a history of vertigo, for which she takes Antivert. Patient states that 1-1/2 months ago she was started on BuSpar for her stress and anxiety. Patient states that over the past week and a half she has had an increase in headache, has had 2 episodes of vertigo and is experiencing excessive salivation. She states that prior to this, she was on vacation for a few weeks and feels stressed since returning. This past , patient states that she sprayed 11 feet of pesticide at her home. Patient states that over the weekend she continued to have vertigo, headache and excessive salivation. She states that she was seen by Dr. Cotton today and was recommended to come to the emergency department for evaluation of pesticide exposure. Patient states that she is not concerned about this as her symptoms started prior to pesticide exposure. Patient denies any fevers or chills, chest pain or shortness of breath, abdominal pain, vomiting, diarrhea or constipation, numbness or weakness, vision changes. - Related Data Home Medications Medication Instructions Recorded Confirmed ALPRAZolam [Xanax] 0.25 mg PO BID PRN 04/16/14 09/19/17 Dicyclomine [Bentyl] 10 mg PO TID PRN 04/16/14 09/19/17 Famotidine [Pepcid] 10 mg PO DAILY PRN 04/16/14 09/19/17 Meclizine [Antivert] 25 mg PO Q8HR PRN 05/28/14 09/19/17 Albuterol Inhaler [Ventolin Hfa 2 puff INHALATION RT-Q6H PRN 06/11/14 09/19/17 Inhaler] Cholecalciferol [Vitamin D3] 1,000 units PO DAILY 06/11/14 09/19/17 Acetaminophen Tab [Tylenol] 325 - 650 mg PO Q4H PRN 11/05/14 09/19/17 Fluticasone Propionate [Flonase] 1 spray EA NOSTRIL DAILY PRN 11/05/14 09/19/17 Levothyroxine Sodium [Synthroid] 25 mcg PO DAILY 11/05/14 09/19/17 Flecainide [Tambocor] 50 mg PO Q12HR 11/11/14 09/19/17 Montelukast [Singulair] 10 mg PO HS 09/18/17 09/19/17 Fexofenadine/Pseudoephedrine 1 tab PO DAILY 09/19/17 09/19/17 [Deidra-D 24 Hour Tablet] L.acidoph,Paracasei, B.lactis 1 cap PO DAILY 09/19/17 09/19/17 [Probiotic] Multivitamins, Thera [Multivitamin 1 tab PO DAILY 09/19/17 09/19/17 (formulary)] Previous Rx's Medication Instructions Recorded Cyclobenzaprine [Flexeril] 10 mg PO TID PRN #90 tab 06/12/14 Atenolol [Tenormin] 12.5 mg PO HS #30 dose 09/19/17 Allergies Allergy/AdvReac Type Severity Reaction Status Date / Time venom-honey bee Allergy Severe Swelling Verified 04/18/18 15:28 [bee venom (honey bee)] chlorhexidine Allergy Rash/Hives Verified 04/18/18 15:28 latex Allergy Rash/Hives, Verified 04/18/18 15:28 itching shellfish derived Allergy per Verified 04/18/18 15:28 allergy testing tramadol Allergy Nausea & Verified 04/18/18 15:28 Vomiting codeine AdvReac Confusion Verified 04/18/18 15:28 hydrocodone bitartrate AdvReac dizziness Verified 04/18/18 15:28 [From Elmer] sulfamethoxazole AdvReac Rapid Verified 04/18/18 15:28 [From Bactrim] Heart Rate trimethoprim [From Bactrim] AdvReac Rapid Verified 04/18/18 15:28 Heart Rate adhesive steri-strips Allergy itching,wel Uncoded 04/18/18 15:28 ts shrimp Allergy per Uncoded 04/18/18 15:28 allergy testing narcotics AdvReac Nausea Uncoded 04/18/18 15:28 Review of Systems ROS Statement: Those systems with pertinent positive or pertinent negative responses have been documented in the HPI. ROS Other: All systems not noted in ROS Statement are negative. Past Medical History Past Medical History: Cancer, Seizure Disorder Additional Past Medical History / Comment(s): colon CA (removed.) closed head injury 2004,"silent seizures", heart "regurgitation", dizziness, sometimes "low blood pressure", arthritis in neck, hx fx nose-sinus problems. History of Any Multi-Drug Resistant Organisms: None Reported Past Surgical History: Appendectomy, Bowel Resection, Section, Cholecystectomy, Orthopedic Surgery, Tonsillectomy Additional Past Surgical History / Comment(s): Lasik, rt foot bunionectomy, nasal surgery, HEART CATH Past Anesthesia/Blood Transfusion Reactions: Family History of Problems w/ Anesthesia, Motion Sickness, Postoperative Nausea & Vomiting (PONV) Additional Past Anesthesia/Blood Transfusion Reaction / Comment(s): dizziness and low BP, diff IV starts. pt mother has diff coming out of anesthesia. Past Psychological History: No Psychological Hx Reported Smoking Status: Never smoker Past Alcohol Use History: Occasional Past Drug Use History: None Reported - Past Family History Father Family Medical History: Cancer Additional Family Medical History / Comment(s): lung CA Mother Family Medical History: Cancer Additional Family Medical History / Comment(s): colon CA Sister(s) Family Medical History: Cancer Additional Family Medical History / Comment(s): thyroid CA General Exam - General Exam Comments Initial Comments: General: Awake and alert, well-developed; in no apparent distress. Does not appear acutely ill. is at bedside. HEENT: Head atraumatic, normocephalic. Pupils are equal, round and reactive to light. Extraocular movements intact. Oropharynx moist without erythema or exudate. Bilateral TMs are pearly without effusion. Neck: Supple. Normal ROM. Cardiovascular: Regular rate and rhythm. No murmurs, rubs or gallops. Chest symmetrical. Respiratory: Lungs clear to auscultation bilaterally. No wheezes, rales or rhonchi. Normal respiratory effort with no use of accessory muscles. Abdomen: Soft, non-tender, non-distended. No rigidity, rebound or guarding. Musculoskeletal: Normal ROM, no tenderness, strength 5/5 bilateral upper and lower extremities. Ambulating normally. Skin: [place], warm and dry without rashes or lesions. Neurological: Alert and oriented x3. CN II-XII grossly intact. Speech is fluent and answers are appropriate. No focal neuro deficits. Psychiatric: Normal mood and affect. No overt signs of depression or anxiety noted. Limitations: no limitations Course Vital Signs 04/18/18 04/18/18 15:29 18:55 Temperature 98.2 F Pulse Rate 91 Respiratory 18 20 Rate Blood Pressure 171/88 O2 Sat by Pulse 98 Oximetry Medical Decision Making - Medical Decision Making This is a 52-year-old female who presents to the emergency department with possible pesticide exposure. After speaking with patient, she states that her symptoms of dizziness, headache and excessive salivation started prior to being exposed to pesticide. She only reports spraying pesticide for 11 feet this past . She reports a history of headaches, for which she is in PT for a neck issue. She reports a history of vertigo for which she takes Antivert. Patient was recently started on BuSpar. I was able to find an FDA report study that links BuSpar to excessive salivation when newly started on the medication. Patient does report a computed tomography scan of the brain that was done last year for dizziness. This was reviewed and revealed no abnormalities. CBC and CMP were within normal limits. Patient's vital signs are stable and she is in no acute distress. She will be discharged home at this time. She is in agreement with this and declines computed tomography scan of the brain at this time. She will return to the emergency department if symptoms should worsen or any new concerning symptoms arise. All questions answered. - Lab Data Result diagrams: 04/18/18 15:55 04/18/18 15:55 Lab Results 04/18/18 04/18/18 Range/Units 15:55 15:55 WBC 5.3 (3.8-10.6) k/uL RBC 4.21 (3.80-5.40) m/uL Hgb 13.0 (11.4-16.0) gm/dL Hct 39.1 (34.0-46.0) % MCV 93.0 (80.0-100.0) fL MCH 30.9 (25.0-35.0) pg MCHC 33.2 (31.0-37.0) g/dL RDW 12.1 (11.5-15.5) % Plt Count 248 (150-450) k/uL Neutrophils % 61 % Lymphocytes % 28 % Monocytes % 7 % Eosinophils % 3 % Basophils % 1 % Neutrophils # 3.2 (1.3-7.7) k/uL Lymphocytes # 1.5 (1.0-4.8) k/uL Monocytes # 0.4 (0-1.0) k/uL Eosinophils # 0.1 (0-0.7) k/uL Basophils # 0.0 (0-0.2) k/uL Sodium 140 (137-145) mmol/L Potassium 4.1 (3.5-5.1) mmol/L Chloride 105 (98-107) mmol/L Carbon Dioxide 25 (22-30) mmol/L Anion Gap 10 mmol/L BUN 11 (7-17) mg/dL Creatinine 0.69 (0.52-1.04) mg/dL Est GFR (CKD-EPI)AfAm >90 (>60 ml/min/1.73 sqM) Est GFR (CKD-EPI)NonAf >90 (>60 ml/min/1.73 sqM) Glucose 91 (74-99) mg/dL Calcium 9.3 (8.4-10.2) mg/dL Total Bilirubin 0.4 (0.2-1.3) mg/dL AST 31 (14-36) U/L ALT 29 (9-52) U/L Alkaline Phosphatase 76 (38-126) U/L Total Protein 7.2 (6.3-8.2) g/dL Albumin 4.4 (3.5-5.0) g/dL Disposition Clinical Impression: Medication side effect, Headache Disposition: HOME SELF-CARE Condition: Good Instructions: General Headache (ED) Additional Instructions: Please follow up with primary care provider within 1-2 days. Return to emergency department if symptoms should worsen or any concerns arise. Is patient prescribed a controlled substance at d/c from ED?: No Referrals: Macario Cotton MD [Primary Care Provider] - 1-2 days Time of Disposition: 19:43
[2018-04-18 19:50] VITALS: BP 146/80; PULSE 80; RESP 18; TEMP 97.4
== END 2018-04-18 19:51 | disposition home or self-care (01) ==
LOC: EC 15:18
DX: K11.7 Disturbances of salivary secretion (principal); T43.595A Adverse effect of other antipsychotics and neuroleptics, initial encounter; R51 Headache; R42 Dizziness and giddiness; Z79.899 Other long term (current) drug therapy; Z88.1 Allergy status to other antibiotic agents; Z88.5 Allergy status to narcotic agent; Z91.013 Allergy to seafood; Z91.030 Bee allergy status; Z91.040 Latex allergy status; Z91.048 Other nonmedicinal substance allergy status; Z87.09 Personal history of other diseases of the respiratory system; Z85.038 Personal history of other malignant neoplasm of large intestine; Z90.49 Acquired absence of other specified parts of digestive tract
CPT/HCPCS: 36415; 80053; 85025; 99283

== ENCOUNTER → 2018-06-20 | Outpatient (CLI) | payer BC | END | disposition home or self-care (01) | LOC: RADECHMAIN 12:25 | PROVIDERS: ATTEND Family Medicine | DX: R00.1 Bradycardia, unspecified (principal); R00.0 Tachycardia, unspecified | CPT/HCPCS: 93225; 93226 ==

== ENCOUNTER 2018-07-11 06:46 | Emergency (ER) | payer BC ==
[2018-07-11 07:01] VITALS: BP 146/89; PULSE 70; RESP 18; TEMP 97.6
--- NOTE | 2018-07-11 07:37 | ED ---
General Adult HPI - General Chief complaint: Skin/Abscess/Foreign Body Stated complaint: tick bite Time Seen by Provider: 07/11/18 07:16 Source: patient, RN notes reviewed Mode of arrival: ambulatory Limitations: no limitations - History of Present Illness Initial comments: 53-year-old female presented to the emergency room today with a chief complaint of a tick bite to the right side of the abdomen. Patient states that she noticed some soreness this morning. She states that she had her sister take a look and they found a small tick that they were able to remove. She states there is some redness around the area is locally tender. Patient states that she was unable to the family doctor today so she came here to the emergency room. She denies any other complaints symptoms. She does admit that she was walking out in the [employer] hiking 2 days ago and believes this is when she was picked up the tick. Patient denies any recent fever, chills, shortness of breath , chest pain, back pain, abdominal pain, nausea or vomiting, numbness or tingling, headaches or visual changes, or any other complaints. - Related Data Home Medications Medication Instructions Recorded Confirmed ALPRAZolam [Xanax] 0.25 mg PO BID PRN 04/16/14 04/18/18 Dicyclomine [Bentyl] 10 mg PO TID PRN 04/16/14 04/18/18 Famotidine [Pepcid] 10 mg PO DAILY PRN 04/16/14 04/18/18 Meclizine [Antivert] 25 mg PO Q8HR PRN 05/28/14 04/18/18 Albuterol Inhaler [Ventolin Hfa 2 puff INHALATION RT-Q6H PRN 06/11/14 04/18/18 Inhaler] Fluticasone Propionate [Flonase] 1 spray EA NOSTRIL DAILY PRN 11/05/14 04/18/18 Levothyroxine Sodium [Synthroid] 25 mcg PO DAILY 11/05/14 04/18/18 Flecainide [Tambocor] 50 mg PO Q12HR 11/11/14 04/18/18 Montelukast [Singulair] 10 mg PO HS 09/18/17 04/18/18 Multivitamins, Thera [Multivitamin 1 tab PO DAILY 09/19/17 04/18/18 (formulary)] Previous Rx's Medication Instructions Recorded Cyclobenzaprine [Flexeril] 10 mg PO TID PRN #90 tab 06/12/14 Atenolol [Tenormin] 12.5 mg PO HS #30 dose 09/19/17 Doxycycline Hyclate [Vibramycin] 100 mg PO BID #42 cap 07/11/18 Allergies Allergy/AdvReac Type Severity Reaction Status Date / Time venom-honey bee Allergy Severe Swelling Verified 07/11/18 07:00 [bee venom (honey bee)] chlorhexidine Allergy Rash/Hives Verified 07/11/18 07:00 latex Allergy Rash/Hives, Verified 07/11/18 07:00 itching shellfish derived Allergy per Verified 07/11/18 07:00 allergy testing tramadol Allergy Nausea & Verified 07/11/18 07:00 Vomiting codeine AdvReac Confusion Verified 07/11/18 07:00 hydrocodone bitartrate AdvReac dizziness Verified 07/11/18 07:00 [From Anna] sulfamethoxazole AdvReac Rapid Verified 07/11/18 07:00 [From Bactrim] Heart Rate trimethoprim [From Bactrim] AdvReac Rapid Verified 07/11/18 07:00 Heart Rate adhesive steri-strips Allergy itching,wel Uncoded 07/11/18 07:00 ts shrimp Allergy per Uncoded 07/11/18 07:00 allergy testing narcotics AdvReac Nausea Uncoded 07/11/18 07:00 Review of Systems ROS Statement: Those systems with pertinent positive or pertinent negative responses have been documented in the HPI. ROS Other: All systems not noted in ROS Statement are negative. Past Medical History Past Medical History: Cancer, Seizure Disorder Additional Past Medical History / Comment(s): colon CA (removed.) closed head injury 2004,"silent seizures", heart "regurgitation", dizziness, sometimes "low blood pressure", arthritis in neck, hx fx nose-sinus problems. History of Any Multi-Drug Resistant Organisms: None Reported Past Surgical History: Appendectomy, Bowel Resection, Section, Cholecystectomy, Orthopedic Surgery, Tonsillectomy Additional Past Surgical History / Comment(s): Lasik, rt foot bunionectomy, nasal surgery, HEART CATH Past Anesthesia/Blood Transfusion Reactions: Family History of Problems w/ Anesthesia, Motion Sickness, Postoperative Nausea & Vomiting (PONV) Additional Past Anesthesia/Blood Transfusion Reaction / Comment(s): dizziness and low BP, diff IV starts. pt mother has diff coming out of anesthesia. Past Psychological History: No Psychological Hx Reported Smoking Status: Never smoker Past Alcohol Use History: Occasional Past Drug Use History: None Reported - Past Family History Father Family Medical History: Cancer Additional Family Medical History / Comment(s): lung CA Mother Family Medical History: Cancer Additional Family Medical History / Comment(s): colon CA Sister(s) Family Medical History: Cancer Additional Family Medical History / Comment(s): thyroid CA General Exam - General Exam Comments Initial Comments: General: The patient is awake and alert, in no distress, and does not appear acutely ill. Eye: There is normal conjunctiva bilaterally. No signs of icterus. Ears, nose, mouth and throat: There are moist mucous membranes and no oral lesions. Neck: The neck is supple, there is no tenderness or JVD. Cardiovascular: There is a regular rate and rhythm. No murmur, rub or gallop is appreciated. Respiratory: Lungs are clear to auscultation, respirations are non-labored, breath sounds are equal. No wheezes, stridor, rales, or rhonchi. Musculoskeletal: Normal ROM, no tenderness. Sensation intact. Strength 5/5. Pulses equal bilaterally 2+. Neurological: A&O x 3. CN II-XII intact, There are no obvious motor or sensory deficits. Coordination appears grossly intact. Speech is normal. Skin: Patient does have a insect bite centrally and approximate half to a quarter percent around the insect bite there is some redness. Psychiatric: Cooperative, appropriate mood & affect, normal judgment. Limitations: no limitations Course Vital Signs 07/11/18 06:54 Temperature 97.6 F Pulse Rate 70 Respiratory 18 Rate Blood Pressure 146/89 O2 Sat by Pulse 100 Oximetry Medical Decision Making - Medical Decision Making Patient does have the tick with her and it was removed in entirety head intact. Patient started on doxycycline to cover for infection. Patient is advised follow family doctor return for concerns. Disposition Clinical Impression: Tick bite Disposition: HOME SELF-CARE Condition: Good Instructions: Tick Bite (ED) Additional Instructions: Please use medication as discussed. Please follow-up with family doctor in the next 2 days. Please return to emergency room if the symptoms increase or worsen or for any other concerns. Prescriptions: Doxycycline Hyclate [Vibramycin] 100 mg PO BID #42 cap Is patient prescribed a controlled substance at d/c from ED?: No Referrals: Macario Cotton MD [Primary Care Provider] - 1-2 days Time of Disposition: 07:36
== END 2018-07-11 07:43 | disposition home or self-care (01) ==
LOC: EC 06:46
DX: S30.861A Insect bite (nonvenomous) of abdominal wall, initial encounter (principal); Z88.1 Allergy status to other antibiotic agents; Z88.2 Allergy status to sulfonamides; Z88.5 Allergy status to narcotic agent; Z91.013 Allergy to seafood; Z91.030 Bee allergy status; Z91.040 Latex allergy status; Z91.048 Other nonmedicinal substance allergy status; Z79.899 Other long term (current) drug therapy; Z85.038 Personal history of other malignant neoplasm of large intestine; Z90.49 Acquired absence of other specified parts of digestive tract; W57.XXXA Bitten or stung by nonvenomous insect and other nonvenomous arthropods, initial encounter; Y93.01 Activity, walking, marching and hiking; Y92.89 Other specified places as the place of occurrence of the external cause
CPT/HCPCS: 99281

== ENCOUNTER → 2018-07-15 | Outpatient (CLI) | payer BC ==
--- NOTE | 2018-07-15 18:18 | XR ---
EXAMINATION TYPE: XR chest 2V DATE OF EXAM: 07/15/2018 COMPARISON: 10/27/2017 HISTORY: Cough TECHNIQUE: Frontal and lateral views of the chest are obtained. FINDINGS: Heart and mediastinum are normal. Lungs are clear. Diaphragm is normal. Bony thorax appear s normal. IMPRESSION: Normal chest. No change.
--- NOTE | 2018-07-18 08:13 | CT ---
EXAMINATION TYPE: CT abdomen pelvis wo con DATE OF EXAM: 07/15/2018 HISTORY: c/o bilateral flank pain, microscopic hematuria, groin pain. CT DLP: 907 mGycm. Automated Exposure Control for Dose Reduction was Utilized. TECHNIQUE: CT scan of the abdomen and pelvis is performed without oral or IV contrast. COMPARISON: CT abdomen and pelvis February 09, 2017. FINDINGS: Within the limitations of a non-contrast study, the following observations are made. LUNG BASES: No significant abnormality is appreciated. LIVER/GB: Cholecystectomy clips are redemonstrated. PANCREAS: No significant abnormality is seen. SPLEEN: No significant abnormality is seen. ADRENALS: No significant abnormality is seen. KIDNEYS: No renal stones or hydronephrosis is seen bilaterally. No intraluminal calculus in the bladd er is present. BOWEL: Evaluation bowel is slightly suboptimal secondary to lack of enteric contrast. Surgical suture s from right-sided partial colectomy and bowel anastomosis are redemonstrated. No suspicious small or large bowel dilatation is seen. GENITAL ORGANS: Anteverted uterus is seen. Lobulation consistent with scattered small fibroids is see n better on prior noncontrast study. Low-lying fibroid cervix axial image 125 versus nabothian cyst. Calcifications along right anterior superior margin axial image 123 are redemonstrated. Findings cou ld be better evaluated with pelvic ultrasound if desired. Within the left ovary there is new 1.8 cm l ow dense lesion axial image 108 this could reflect ovarian cyst or cystic lesion new from prior study , also can be better evaluated with pelvic ultrasound if desired. LYMPH NODES: No greater than 1cm abdominal or pelvic lymph nodes are appreciated. OSSEOUS STRUCTURES: Moderate disc space narrowing with mild spurring L3-L4 level is redemonstrated. F acet arthropathy lower lumbar levels is seen. OTHER: Tiny fat-containing umbilical hernia axial image 78 is redemonstrated. IMPRESSION: 1. No renal stones or hydronephrosis is seen bilaterally. No significant new or acute finding is seen to account for patient's symptoms. 2. New 1.8 cm low dense lesion left ovary, greater than 1 cm cysts are abnormal finding in postmenopa usal female, advise pelvic ultrasound to further evaluate and characterize to exclude cystic neoplasm .
== END ==
LOC: RADCTMAIN 17:09
PROVIDERS: ATTEND Family Medicine
DX: N83.202 Unspecified ovarian cyst, left side (principal); R05 Cough
CPT/HCPCS: 71046; 74176

== ENCOUNTER → 2018-07-26 | Outpatient (CLI) | payer BC ==
--- NOTE | 2018-07-26 13:53 | US ---
EXAMINATION TYPE: US pelvis complete transvag DATE OF EXAM: 07/26/2018 COMPARISON: CT 2018 pt has started period after ct scan , period 1 week CLINICAL HISTORY: N83.209 Unspecified ovarian cyst. TECHNIQUE: Transvaginal (TV) and Transabdominal (TA) . Transabdominal sonographic images of the pel vis were acquired. Transvaginal sonographic images were medically necessary to better assess the fol lowing anatomy: uterus and adnexa Date of LMP: 07/23/2018 EXAM MEASUREMENTS: Uterus: 8.8 x 4.1 x 5.6 cm Endometrial Stripe: 0.2 cm Right Ovary: 1.0 x 1.3 x 1.1 cm Left Ovary: 1.3 x 1.9 x 1.2 cm 1. Uterus: Anteverted nabothian cysts 0.4 x1.1 x 1.1 cm, probable fibroids anterior 1.5 x 1.5 x 1. 8 cm and posterior 2.3 x 1.9 x 2.7 cm. Calcification within the anterior uterine wall 0.8 x 0.6 x 0. 7 cm that could be within a degenerated uterine fibroid. 2. Endometrium: wnl 3. Right Ovary: portions seen wnl 4. Left Ovary: portions seen wnl 5. Bilateral Adnexa: wnl 6. Posterior cul-de-sac: wnl IMPRESSION: 1. Heterogenous fibroid uterus containing at least 2 leiomyomas and probable degenerative calcified u terine leiomyoma. 2. The previously questioned 1.8 cm left ovarian cystic lesion has resolved in the interim.
== END | disposition home or self-care (01) ==
LOC: RADUSWWP 11:54
PROVIDERS: ATTEND Family Medicine
DX: D25.9 Leiomyoma of uterus, unspecified (principal)
CPT/HCPCS: 76830; 76856

== ENCOUNTER → 2018-07-29 | Outpatient (CLI) | payer BC ==
--- NOTE | 2018-07-29 17:42 | CT ---
EXAMINATION TYPE: CT ChestAbdPelvis w con DATE OF EXAM: 07/29/2018 INDICATION: Follow up for benign carcinoid tumor of cecum. Some LUQ pain. COMPARISON: 07/15/2018 CT DLP: 1428 mGycm CONTRAST: Performed with Oral Contrast and with IV Contrast, patient injected with 100 mL of Isovue 300. TECHNIQUE: Axial images at 5 mm thick sections. Reconstructed images in the coronal plane. Delayed images through the kidneys. FINDINGS: CT CHEST: Portion of the thyroid visualized is normal. No suspicious lung nodules or focal infiltrates are present. Minimal medial left apical scarring appe ars to be present. No enlarged mediastinal or hilar adenopathy is evident. The ascending aorta diameter at the level of the main pulmonary artery is 3.5 cm. The main pulmonary artery diameter at the bifurcation is 2.[address] ABDOMEN: There is a mesenteric fat containing periumbilical hernia. No loops of bowel are involved . Liver: Normal Spleen: Normal Pancreas: Normal Adrenal glands: The adrenal glands are normal. Gallbladder: Surgically absent Kidneys: No masses are evident. No hydronephrosis is present. No cysts are present. Delayed images were obtained through the kidneys, which remain unremarkable. Aorta: Normal Inferior vena cava: Normal. CT PELVIS: No suspicious desmoplastic reaction or masses are evident. No significant adenopathy is id entified. Loops of bowel within the abdomen and pelvis are normal. There are loops of bowel which are incom pletely distended or lack oral contrast limiting their evaluation. Appendix: Not clearly identified. No suspicious tubular structures or inflammatory changes are eviden t. Urinary bladder: Normal. Genitourinary structures: Uterus and adnexal regions appear within normal limits. Osseous structures: No suspicious lytic or sclerotic lesions. IMPRESSIONS: 1. No suspicious changes to suggest recurrent carcinoid.
== END | disposition home or self-care (01) ==
LOC: RADCTMAIN 12:04
PROVIDERS: ATTEND Internal Medicine Hematology & Oncology
DX: D3A.021 Benign carcinoid tumor of the cecum (principal); Z91.013 Allergy to seafood; Z91.040 Latex allergy status
CPT/HCPCS: 71260; 74177; Q9967

== ENCOUNTER 2018-08-28 07:04 | Inpatient (IN) | payer BC ==
[2018-08-28] MEDS ORDERED: METOCLOPRAMIDE 5 MG/ML 2 ML VIAL IVP STA (07:32)
--- NOTE | 2018-08-28 07:40 | ED ---
General Adult HPI - General Chief complaint: Dizziness Stated complaint: Dizziness Time Seen by Provider: 08/28/18 07:14 Source: patient, family, RN notes reviewed Mode of arrival: wheelchair Limitations: no limitations - History of Present Illness Initial comments: Patient is a pleasant 53-year-old female presenting to the emergency Department with complaints of dizziness. Last known well was when she went to bed around 10:00 last night. Patient woke up this morning sweaty and dizzy. Patient did have some pounding in her chest. Pounding in her chest is near resolved at this time. Patient does have some minimal tightness in her chest. Patient does have some nausea still. Patient did vomit once or twice earlier. Dizziness is mild at this time. Dizziness did have some spinning type sensation associated with it. Patient does have a history of some dizziness several years ago associated with a head injury. Patient does have history of palpitations and is on medication for this. Patient did feel somewhat off balance and leaning towards left side when trying to walk earlier. Patient has not noticed any specific area of weakness. No confusion. No speech problems. - Related Data Home Medications Medication Instructions Recorded Confirmed ALPRAZolam [Xanax] 0.25 mg PO BID PRN 04/16/14 08/28/18 Dicyclomine [Bentyl] 10 mg PO TID PRN 04/16/14 08/28/18 Famotidine [Pepcid] 10 mg PO DAILY PRN 04/16/14 08/28/18 Meclizine [Antivert] 25 mg PO Q8HR PRN 05/28/14 08/28/18 Albuterol Inhaler [Ventolin Hfa 2 puff INHALATION RT-Q6H PRN 06/11/14 08/28/18 Inhaler] Fluticasone Propionate [Flonase] 1 spray EA NOSTRIL DAILY PRN 11/05/14 08/28/18 Levothyroxine Sodium [Synthroid] 25 mcg PO DAILY 11/05/14 08/28/18 Flecainide [Tambocor] 50 mg PO Q12HR 11/11/14 08/28/18 Montelukast [Singulair] 10 mg PO HS 09/18/17 08/28/18 Multivitamins, Thera [Multivitamin 1 tab PO DAILY 09/19/17 08/28/18 (formulary)] Previous Rx's Medication Instructions Recorded Cyclobenzaprine [Flexeril] 10 mg PO TID PRN #90 tab 06/12/14 Atenolol [Tenormin] 12.5 mg PO HS #30 dose 09/19/17 Allergies Allergy/AdvReac Type Severity Reaction Status Date / Time venom-honey bee Allergy Severe Swelling Verified 08/28/18 09:10 [bee venom (honey bee)] chlorhexidine Allergy Rash/Hives Verified 08/28/18 09:10 latex Allergy Rash/Hives, Verified 08/28/18 09:10 itching shellfish derived Allergy per Verified 08/28/18 09:10 allergy testing tramadol Allergy Nausea & Verified 08/28/18 09:10 Vomiting codeine AdvReac Confusion Verified 08/28/18 09:10 hydrocodone bitartrate AdvReac dizziness Verified 08/28/18 09:10 [From [place]] sulfamethoxazole AdvReac Rapid Verified 08/28/18 09:10 [From Bactrim] Heart Rate trimethoprim [From Bactrim] AdvReac Rapid Verified 08/28/18 09:10 Heart Rate adhesive steri-strips Allergy itching,wel Uncoded 08/28/18 07:11 ts shrimp Allergy per Uncoded 08/28/18 07:11 allergy testing narcotics AdvReac Nausea Uncoded 08/28/18 07:11 Review of Systems ROS Statement: Those systems with pertinent positive or pertinent negative responses have been documented in the HPI. ROS Other: All systems not noted in ROS Statement are negative. Constitutional: Denies: fever Eyes: Denies: eye pain ENT: Denies: ear pain Respiratory: Denies: cough Cardiovascular: Reports: as per HPI, chest pain, palpitations Endocrine: Reports: fatigue Gastrointestinal: Reports: nausea, vomiting. Denies: abdominal pain Genitourinary: Denies: dysuria Musculoskeletal: Denies: back pain Skin: Denies: rash Neurological: Reports: headache (01/11), abnormal gait, vertigo. Denies: weakness, paresthesias, confusion Past Medical History Past Medical History: Cancer, Seizure Disorder Additional Past Medical History / Comment(s): colon CA (removed.) closed head injury 2004,"silent seizures", heart "regurgitation", dizziness, sometimes "low blood pressure", arthritis in neck, hx fx nose-sinus problems. History of Any Multi-Drug Resistant Organisms: None Reported Past Surgical History: Appendectomy, Bowel Resection, Section, Cholecystectomy, Orthopedic Surgery, Tonsillectomy Additional Past Surgical History / Comment(s): Lasik, rt foot bunionectomy, nasal surgery, HEART CATH Past Anesthesia/Blood Transfusion Reactions: Family History of Problems w/ Anesthesia, Motion Sickness, Postoperative Nausea & Vomiting (PONV) Additional Past Anesthesia/Blood Transfusion Reaction / Comment(s): dizziness and low BP, diff IV starts. pt mother has diff coming out of anesthesia. Past Psychological History: No Psychological Hx Reported Smoking Status: Never smoker Past Alcohol Use History: Occasional Past Drug Use History: None Reported - Past Family History Father Family Medical History: Cancer Additional Family Medical History / Comment(s): lung CA Mother Family Medical History: Cancer Additional Family Medical History / Comment(s): colon CA Sister(s) Family Medical History: Cancer Additional Family Medical History / Comment(s): thyroid CA General Exam Limitations: no limitations General appearance: alert, in no apparent distress Head exam: Present: atraumatic, normocephalic Eye exam: Present: normal appearance, PERRL, EOMI. Absent: nystagmus ENT exam: Present: normal oropharynx Neck exam: Present: normal inspection Respiratory exam: Present: normal lung sounds bilaterally Cardiovascular Exam: Present: regular rate, normal rhythm Expanded Peripheral pulses: 2+: Radial (R), Radial (L), Posterior Tibialis (R), Posterior Tibialis (L) GI/Abdominal exam: Present: soft. Absent: tenderness Extremities exam: Present: normal inspection. Absent: pedal edema, calf tenderness Neurological exam: Present: alert, oriented X3, CN II-XII intact Expanded Neurological exam: Present: protecting the airway Speech: Present: fluid speech Cranial nerves: EOM's Intact: Normal, Facial Sensation: Normal Cerebellar function: Finger to Nose: Normal Sensory exam: Upper Extremity Light Touch: Normal, Lower Extremity Light Touch: Normal Motor strength exam: RUE: 5, LUE: 5, RLE: 5, LLE: 4 Eye Response: (4) open spontaneously Motor Response: (6) obeys commands Verbal Response: (5) oriented Psychiatric exam: Present: normal affect, normal mood Skin exam: Present: normal color Course Vital Signs 08/28/18 08/28/18 08/28/18 07:08 07:50 08:30 Temperature 97.8 F Pulse Rate 68 86 71 Respiratory 16 59 H 15 Rate Blood Pressure 143/73 132/84 138/82 O2 Sat by Pulse 100 97 91 L Oximetry EKG Findings - EKG Comments: EKG Findings:: Normal sinus rhythm 71. First-degree AV block AK of 208. QRS 88. QT 404. QTC 439. Normal axis. Normal QRS. No acute ST change. Medical Decision Making - Medical Decision Making Patient reevaluated and resting comfortably in bed. No change in weakness. Patient and family updated on results and plan. Case was discussed in detail with Dr. polo, covering for Dr. Cotton, who will admit patient. Consult will be placed for neurology. Patient has previously seen Dr. Hernandez. - Lab Data Result diagrams: 08/28/18 07:34 08/28/18 07:34 Lab Results 08/28/18 08/28/18 08/28/18 Range/Units 07:34 07:34 07:34 WBC 6.4 (3.8-10.6) k/uL RBC 4.46 (3.80-5.40) m/uL Hgb 13.8 (11.4-16.0) gm/dL Hct 42.2 (34.0-46.0) % MCV 94.5 (80.0-100.0) fL MCH 30.9 (25.0-35.0) pg MCHC 32.7 (31.0-37.0) g/dL RDW 11.9 (11.5-15.5) % Plt Count 287 (150-450) k/uL Neutrophils % 77 % Lymphocytes % 17 % Monocytes % 4 % Eosinophils % 1 % Basophils % 1 % Neutrophils # 4.9 (1.3-7.7) k/uL Lymphocytes # 1.1 (1.0-4.8) k/uL Monocytes # 0.2 (0-1.0) k/uL Eosinophils # 0.1 (0-0.7) k/uL Basophils # 0.0 (0-0.2) k/uL PT (9.0-12.0) sec INR (<1.2) APTT (22.0-30.0) sec Sodium 138 (137-145) mmol/L Potassium 4.9 (3.5-5.1) mmol/L Chloride 106 (98-107) mmol/L Carbon Dioxide 25 (22-30) mmol/L Anion Gap 7 mmol/L BUN 16 (7-17) mg/dL Creatinine 0.63 (0.52-1.04) mg/dL Est GFR (CKD-EPI)AfAm >90 (>60 ml/min/1.73 sqM) Est GFR (CKD-EPI)NonAf >90 (>60 ml/min/1.73 sqM) Glucose 116 H (74-99) mg/dL Calcium 9.5 (8.4-10.2) mg/dL Total Bilirubin 0.4 (0.2-1.3) mg/dL AST 19 (14-36) U/L ALT 19 (9-52) U/L Alkaline Phosphatase 73 (38-126) U/L Total Creatine Kinase 39 (30-135) U/L CK-MB (CK-2) 0.6 (0.0-2.4) ng/mL CK-MB (CK-2) Rel Index 1.5 Troponin I <0.012 (0.000-0.034) ng/mL Total Protein 7.1 (6.3-8.2) g/dL Albumin 4.2 (3.5-5.0) g/dL 08/28/18 Range/Units 07:34 WBC (3.8-10.6) k/uL RBC (3.80-5.40) m/uL Hgb (11.4-16.0) gm/dL Hct (34.0-46.0) % MCV (80.0-100.0) fL MCH (25.0-35.0) pg MCHC (31.0-37.0) g/dL RDW (11.5-15.5) % Plt Count (150-450) k/uL Neutrophils % % Lymphocytes % % Monocytes % % Eosinophils % % Basophils % % Neutrophils # (1.3-7.7) k/uL Lymphocytes # (1.0-4.8) k/uL Monocytes # (0-1.0) k/uL Eosinophils # (0-0.7) k/uL Basophils # (0-0.2) k/uL PT 9.5 (9.0-12.0) sec INR 0.9 (<1.2) APTT 25.3 (22.0-30.0) sec Sodium (137-145) mmol/L Potassium (3.5-5.1) mmol/L Chloride (98-107) mmol/L Carbon Dioxide (22-30) mmol/L Anion Gap mmol/L BUN (7-17) mg/dL Creatinine (0.52-1.04) mg/dL Est GFR (CKD-EPI)AfAm (>60 ml/min/1.73 sqM) Est GFR (CKD-EPI)NonAf (>60 ml/min/1.73 sqM) Glucose (74-99) mg/dL Calcium (8.4-10.2) mg/dL Total Bilirubin (0.2-1.3) mg/dL AST (14-36) U/L ALT (9-52) U/L Alkaline Phosphatase (38-126) U/L Total Creatine Kinase (30-135) U/L CK-MB (CK-2) (0.0-2.4) ng/mL CK-MB (CK-2) Rel Index Troponin I (0.000-0.034) ng/mL Total Protein (6.3-8.2) g/dL Albumin (3.5-5.0) g/dL - Radiology Data Radiology results: report reviewed (Computed tomography scan of the brain shows atrophy. No acute process.), image reviewed (Chest x-ray shows no acute process ) Disposition Clinical Impression: Left leg weakness Disposition: ADMITTED IP TO THIS HOSP Is patient prescribed a controlled substance at d/c from ED?: No Referrals: Macario Cotton MD [Primary Care Provider] - 1-2 days Decision Time: 09:41
[2018-08-28 07:44] LABS: Basophils % (A) 1 %; Eosinophils # (A) 0.1 k/uL (0-0.7); Eosinophils % (A) 1 %; HCT 42.2 % (34.0-46.0); HGB 13.8 gm/dL (11.4-16.0); Lymphocytes # (A) 1.1 k/uL (1.0-4.8); Lymphocytes % (A) 17 %; MCH 30.9 pg (25.0-35.0); MCHC 32.7 g/dL (31.0-37.0); MCV 94.5 fL (80.0-100.0); Mean Platelet Volume 6.8; Monocytes # (A) 0.2 k/uL (0-1.0); Monocytes % (A) 4 %; Neutrophils # (A) 4.9 k/uL (1.3-7.7); Neutrophils % (A) 77 %; Platelet Count 287 k/uL (150-450); RBC 4.46 m/uL (3.80-5.40); RDW 11.9 % (11.5-15.5); WBC 6.4 k/uL (3.8-10.6)
[2018-08-28 07:53] LABS: INR 0.9 (<1.2); Partial Thromboplastin Time 25.3 sec (22.0-30.0); Prothrombin Time 9.5 sec (9.0-12.0)
[2018-08-28 07:55] LABS: ALT 19 U/L (9-52); AST 19 U/L (14-36); Albumin 4.2 g/dL (3.5-5.0); Alkaline Phosphatase 73 U/L (38-126); Anion Gap 7 mmol/L; Blood Urea Nitrogen 16 mg/dL (7-17); Calcium 9.5 mg/dL (8.4-10.2); Carbon Dioxide 25 mmol/L (22-30); Chloride 106 mmol/L (98-107); Glucose 116 mg/dL (74-99); Potassium 4.9 mmol/L (3.5-5.1); Sodium 138 mmol/L (137-145); Total Bilirubin 0.4 mg/dL (0.2-1.3); Total Protein 7.1 g/dL (6.3-8.2)
[2018-08-28 08:13] LABS: Creatine Kinase 39 U/L (30-135)
[2018-08-28 08:24] LABS: Creatine Kinase MB 0.6 ng/mL (0.0-2.4); Troponin I <0.012 ng/mL (0.000-0.034)
--- NOTE | 2018-08-28 08:25 | CT ---
EXAMINATION TYPE: CT brain wo con for TPA DATE OF EXAM: 08/28/2018 COMPARISON: 12/27/2016 HISTORY: Dizziness and rapid heart rate CT DLP: 1069.[address] of the brain was performed. The ventricles, basal cisterns and sulci overlying the cerebral convexities demonstrate mild enlargem ent. There is no evidence for intracranial hemorrhage or sulcal effacement. There is decreased attenuation about the periventricular white matter and deep white matter of both c erebral hemispheres, compatible with chronic small vessel ischemia. Differential diagnosis does inclu de demyelination. No mass effects are seen.No midline shift. Osseous calvarium is intact. If symptoms persist consider MRI. IMPRESSION: 1. Age related atrophic and chronic small vessel ischemic change without acute intracranial process s een at this time.
--- NOTE | 2018-08-28 08:26 | XR ---
EXAMINATION TYPE: XR chest 2V DATE OF EXAM: 08/28/2018 COMPARISON: 07/15/2018 HISTORY: Chest pain TECHNIQUE: Frontal and lateral views of the chest are obtained. FINDINGS: There is no focal air space opacity. No evidence for pneumothorax. No pleural effusion. The cardiac silhouette size is within normal limits. The osseous structures are grossly intact. IMPRESSION: 1. No acute cardiopulmonary process.
--- NOTE | 2018-08-28 09:35 | CT ---
EXAMINATION TYPE: CT angio head neck DATE OF EXAM: 08/28/2018 COMPARISON: None HISTORY: Dizziness and rapid heart rate CT DLP: 506.8 mGycm CONTRAST: Performed with IV Contrast, patient injected with 65 mL of Isovue 370. Combination Contrast CTA cervical carotids and [place] CTA cervical carotids with 3-D recons truction Contrast CTA of the cervical carotids was performed 3-D reconstruction imaging obtained at a separate workstation. Right carotid system: Mild plaque is seen of the right common carotid artery. There is mild plaque a lso noted at the carotid bulb and proximal ICA. No significant diameter reduction. ECA is patent. Right vertebral artery appears unremarkable. Left carotid system: Mild plaque is seen of the left common carotid artery. There is mild plaque als o noted at the carotid bulb and proximal ICA. No significant diameter reduction. ECA is patent. Lef t vertebral artery appears unremarkable. IMPRESSION: 1. No significant diameter reduction to account for the patient's symptoms. CTA [place] with 3-D reconstruction Contrast CTA of the [place] was performed 3-D reconstruction imaging obtained at a separate workstation. Vertebrobasilar system as well as intracranial portions of the internal carotid arteries and their ma amish tributaries are patent. I do not see evidence for sizable aneurysm or vascular malformation. Pl ease note MRI provides greater sensitivity and specificity. Visualized brain appears grossly unremar kable. IMPRESSION: 1. No significant abnormality.
[2018-08-28] MEDS ORDERED: MECLIZINE 12.5 MG TAB PO STA (09:39)
[2018-08-28] MEDS ORDERED: ASPIRIN 325 MG TAB PO STA (09:41)
[2018-08-28] MEDS: SODIUM CHLORIDE 0.9% 1,000 ML IV SCH ×2 (09:51→16:12)
--- NOTE | 2018-08-28 12:34 | US ---
EXAMINATION TYPE: US venous doppler duplex LE RT DATE OF EXAM: 08/28/2018 12:14 PM COMPARISON: NONE CLINICAL HISTORY: pain. SIDE PERFORMED: Right TECHNIQUE: The lower extremity deep venous system is examined utilizing real time linear array sonog valeria with graded compression, doppler sonography and color-flow sonography. VESSELS IMAGED: External Iliac Vein (EIV) Common Femoral Vein Deep Femoral Vein Greater Saphenous Vein * Femoral Vein Popliteal Vein Small Saphenous Vein * Proximal Calf Veins (* superficial vessels) Right Leg: Negative for DVT IMPRESSION: No evidence for DVT.
[2018-08-28] MEDS ORDERED: ALBUTEROL NEBULIZED 2.5 MG/3 ML INHALATION PRN (13:42)
[2018-08-28] MEDS ORDERED: ALPRAZolam 0.25 MG TAB PO PRN (13:42)
[2018-08-28] MEDS ORDERED: MECLIZINE 25 MG TAB PO PRN (13:42)
[2018-08-28] MEDS ORDERED: DICYCLOMINE 10 MG CAP PO PRN (13:42)
[2018-08-28] MEDS ORDERED: FLUTICASONE 50MCG/SPRAY NASAL 16GM EA NOSTRIL PRN (13:42)
[2018-08-28] MEDS ORDERED: CYCLOBENZAPRINE 10 MG TAB PO PRN (13:42)
[2018-08-28] MEDS ORDERED: FAMOTIDINE 20 MG TAB PO PRN (13:42)
[2018-08-28 14:23] VITALS: BMI 31.1
[2018-08-28] MEDS ORDERED: LORazepam 2 MG/ML INJ IV STA (16:09)
[2018-08-28] MEDS ORDERED: MELATONIN 3 MG TABLET PO PRN (16:20)
[2018-08-28 17:01] LABS: Glucose,Whole Blood 101 mg/dL (75-99)
[2018-08-28] MEDS: ACETAMINOPHEN TAB 325 MG TAB PO PRN (17:08)
[2018-08-28] MEDS: ATORVASTATIN 10 MG TAB PO SCH ×2 (17:08→17:16)
[2018-08-28] MEDS: FLECAINIDE 50 MG TAB PO SCH (20:23)
[2018-08-28] MEDS: HEPARIN SODIUM,PORCINE 5,000 UNIT/ML 1 ML VIAL SQ SCH (20:23)
--- NOTE | 2018-08-28 20:33 | HP ---
HISTORY AND PHYSICAL DATE OF SERVICE: 08/28/2018 CHIEF COMPLAINT: Dizziness and vomiting. HISTORY OF PRESENT ILLNESS: This 53-year-old woman with a past medical history of multiple medical problems, hyperlipidemia, seizure disorder, history of hypothyroid, history of colon cancer, history of bowel resection, history of cholecystectomy being followed by Dr. Macario Cotton in the outpatient setting, [place] and this morning the patient woke up around 4 o'clock. Patient felt warm, the patient felt dizzy and the patient had some pounding in the chest. The patient also felt some weakness and also. The patient had vertigo after falling from the horse previously, but, however, this attack looked different and the patient came back all the way to [place] and presented to the ER at this time. On admission, the glucose 116, otherwise other labs are normal. However, brain CT scan and complete workup was done. The brain CT scan showed age-related atrophic changes, small vessel ischemic changes. No other acute intracranial processes detected. CT angio was also done which showed no significant changes and venous Doppler showed no evidence of DVT. There is no history of fever, rigors or chills. PAST MEDICAL HISTORY: Of hyperlipidemia, seizures, hypothyroidism, colon cancer, appendectomy, bowel resection. MEDICATIONS: Prior to admission include home medications are: 1. Flexeril 10 mg t.i.d. p.r.n. 2. Ventolin HFA 2 puffs q.6h p.r.n. 3. Xanax 0.25 b.i.d. p.r.n. 4. Multivitamins daily. 5. Singulair 10 mg q.h.s. 6. Antivert 25 mg daily p.r.n. 7. Synthroid 25 mcg p.o. daily. 8. Flonase 1 spray daily p.r.n. 9. Tambocor 50 mg p.o. b.i.d. 10.Pepcid 10 mg p.o. daily p.r.n. 11.Bentyl 10 mg p.o. t.i.d. 12.Tenormin 12.5 mg q.h.s. ALLERGIES: HONEY BEE VENOM, CHLORHEXIDINE, LATEX, SHELLFISH, ULTRAM, CODEINE, NORCO, BACTRIM, ADHESIVE STRIPS, SHRIMP AND NARCOTICS. FAMILY HISTORY: History of lung cancer in the family. SOCIAL HISTORY: No history of smoking. No history of alcohol intake. REVIEW OF SYSTEMS: ENT: No diminished hearing or vision. CARDIOVASCULAR: No angina or palpitations. RESPIRATORY: As mentioned earlier. GI: No nausea or vomiting. no dysuria. Nervous system: No numbness or weakness. Allergy/Immunology: No asthma or hayfever. Musculoskeletal: As mentioned earlier. Hematology/Oncology: No history of anemia. ENDOCRINE: Hypothyroid. CONSTITUTIONAL: As mentioned earlier. Dermatology: Negative. Rheumatology: Negative. Psychiatry: As mentioned earlier. PHYSICAL EXAMINATION: Alert, oriented x3. Pulse 70. Blood pressure 122/70, respiration 18, temperature is normal. Pulse ox 98% on room air. HEENT: Conjunctivae normal. Oral mucosa is moist. Neck is no jugular venous distention. No carotid bruit. No lymph node enlargement. Cardiovascular: S1-S2. Respirations: Breath sounds diminished in the bases. Bilateral scattered rhonchi and crackles. ABDOMEN: Soft, nontender. No mass palpable. Legs: No edema. No swelling. Nervous system: Minimal weakness of the left leg present. Lymphatics: No lymph nodes palpable in the neck, axillae or groin. Skin: No ulcer, rash or bleeding. LAB STUDIES: CBC within normal limits. CMP glucose 160. Other labs are noted as above. ASSESSMENT: 1. Acute weakness and dizziness, vertigo for evaluation, rule out vertebrobasilar insufficiency or rule out stroke. 2. Hyperlipidemia. 3. Seizure disorder. 4. Hypothyroidism. 5. History of colon cancer. 6. History of closed head injury. 7. History of vertigo. 8. History of bowel resection. 9. History of cholecystectomy. 10.History of motion sickness. RECOMMENDATIONS AND DISCUSSION: In this 53-year-old woman who presented with multiple complex medical issues, we will monitor the patient closely, continue the current medications, management and symptomatic treatment. Otherwise, I recommend resume the home medications. Antiplatelet agents. Symptomatic treatment and I would also recommend full neurovascular work up including 2D echo. MRI of the brain is ordered and neurology evaluation. The prognosis guarded because of multiple complex medical issues. Lipid panel also will be checked and UA is also ordered. Discussed with the patient at length. Neuro checks. Discussed with staff. Resume the home medications. Guarded prognosis. Further recommendations to follow. Dr. Cotton will follow tomorrow. MMODL / IJN: [id number] / JOCELYN
[2018-08-28 20:47] LABS: Glucose,Whole Blood 107 mg/dL (75-99)
[2018-08-28] MEDS ORDERED: MONTELUKAST 10 MG TAB PO SCH (21:00)
[2018-08-28] MEDS ORDERED: ATENOLOL 12.5 MG TAB PO SCH (21:00)
[2018-08-28 22:56] LABS: Appearance,Urine Clear (Clear); Bilirubin,Urine Negative (Negative); Blood,Urine Small (Negative); Color,Urine Yellow; Glucose,Urine (UA) Negative (Negative); Ketones,Urine Negative (Negative); Leukocyte Esterase,Urine Negative (Negative); Mucus,Urine Few /hpf; Nitrite,Urine Negative (Negative); Protein,Urine Trace (Negative); RBC,Urine 7 /hpf (0-5); Specific Gravity,Urine 1.037 (1.001-1.035); Squamous Epithelial Cell,Urine 2 /hpf (0-4); Urobilinogen,Urine <2.0 mg/dL (<2.0); WBC,Urine 3 /hpf (0-5)
[2018-08-29 01:01] VITALS: TEMP 96.9
[2018-08-29] MEDS ORDERED: LEVOTHYROXINE 25 MCG TAB PO SCH (06:30)
[2018-08-29 06:53] LABS: Basophils % (A) 1 %; Eosinophils # (A) 0.1 k/uL (0-0.7); Eosinophils % (A) 2 %; HCT 38.7 % (34.0-46.0); HGB 12.8 gm/dL (11.4-16.0); Lymphocytes # (A) 1.6 k/uL (1.0-4.8); Lymphocytes % (A) 45 %; MCH 31.5 pg (25.0-35.0); MCHC 33.2 g/dL (31.0-37.0); Mean Platelet Volume 6.5; Monocytes # (A) 0.2 k/uL (0-1.0); Monocytes % (A) 7 %; Neutrophils # (A) 1.6 k/uL (1.3-7.7); Neutrophils % (A) 43 %; Platelet Count 246 k/uL (150-450); RBC 4.07 m/uL (3.80-5.40); RDW 12.1 % (11.5-15.5); WBC 3.6 k/uL (3.8-10.6)
[2018-08-29 07:04] LABS: Anion Gap 5 mmol/L; Blood Urea Nitrogen 12 mg/dL (7-17); Calcium 8.7 mg/dL (8.4-10.2); Carbon Dioxide 27 mmol/L (22-30); Chloride 106 mmol/L (98-107); Cholesterol 173 mg/dL (<200); Glucose 93 mg/dL (74-99); HDL Cholesterol 60 mg/dL (40-60); LDL Cholesterol,Calculated 98 mg/dL (0-99); Potassium 4.8 mmol/L (3.5-5.1); Sodium 138 mmol/L (137-145); Triglycerides 77 mg/dL (<150)
--- NOTE | 2018-08-29 07:53 | MR ---
EXAMINATION TYPE: MR brain wo con DATE OF EXAM: 08/29/2018 COMPARISON: Prior MRI brain September 11, 2015. CT brain from yesterday. HISTORY : left side weakness per order. Admitted for neuro deficits, dizziness, and rapid heart rate 1 day earlier. TECHNIQUE: Multiplanar, multisequence imaging of the brain and brainstem is performed without IV cont rast. FINDINGS: Diffusion weighted images demonstrate no evidence of a recent infarct or other diffusion abnormality. There is no worrisome extra-axial fluid collection. The ventricular system and cisternal spaces are normal in size and appearance. The brain volume is age appropriate. There are few scattered small fo ci of T2 hyperintensity redemonstrated through the bilateral high frontal and right parietal white ma tter, I estimates 5-10 scattered lesions with 4 distinct lesions seen axial image 25 for reference. T he lesions measure up to 5 mm in size. Midline structures demonstrate normal morphology. The craniocervical junction appears within normal limits. Normal vascular flow voids are present. The visualized sinuses are clear and the globes are i ntact. No suspicious opacity in bilateral mastoid air cells is present. IMPRESSION: 1. No evidence of a recent infarct. 2. Mild to minimal nonspecific white matter changes most likely on basis of product of chronic small vessel ischemic change redemonstrated.
[2018-08-29] MEDS ORDERED: ASPIRIN 325 MG TAB PO SCH (09:00)
[2018-08-29 09:40] VITALS: RESP 18
[2018-08-29] MEDS: ATORVASTATIN 10 MG TAB PO SCH (09:51)
[2018-08-29] MEDS: HEPARIN SODIUM,PORCINE 5,000 UNIT/ML 1 ML VIAL SQ SCH (09:51)
[2018-08-29] MEDS: ACETAMINOPHEN TAB 325 MG TAB PO PRN (09:51)
[2018-08-29] MEDS: FLECAINIDE 50 MG TAB PO SCH (09:51)
[2018-08-29] MEDS: SODIUM CHLORIDE 0.9% 1,000 ML IV SCH (10:39)
--- NOTE | 2018-08-29 11:10 | ECHOF ---
Referral Reason:Thrombus MEASUREMENTS -------- HEIGHT: 177.8 cm WEIGHT: 98.9 kg BP: 143/64 RVIDd: 2.5 cm (< 3.3) IVSd: 1.1 cm (0.6 - 1.1) LVIDd: 5.3 cm (3.9 - 5.3) LVPWd: 1.1 cm (0.6 - 1.1) IVSs: 1.1 cm LVIDs: 4.2 cm LVPWs: 1.2 cm LAESV Index (A-L): 23.19 ml/m Ao Diam: 3.1 cm (2.0 - 3.7) AV Cusp: 2.0 cm (1.5 - 2.6) LA Diam: 3.5 cm (2.7 - 3.8) EPSS: 0.7 cm MV E Alberto: 1.01 m/s MV DecT: 320 ms MV A Alberto: 0.77 m/s MV E/A Ratio: 1.32 RAP: 5.00 mmHg RVSP: 24.57 mmHg MV EF SLOPE: 88.68 mm/s (70 - 150) MV EXCURSION: 1.82 cm (> 18.000) FINDINGS -------- Sinus rhythm. This was a technically adequate study. The left ventricular size is normal. There is borderline concentric left ventricular hypertrophy. There is mild global hypokinesis of LV . Overall left ventricular systolic function is mildly impa ired with, an EF between 45 - 50 %. The right ventricle is normal in size and function. Normal LA size by volume 22+/-6 ml/m2. The right atrium is normal in size. The aortic valve is trileaflet, and appears structurally normal. No aortic stenosis or regurgitation. The mitral valve is normal. Mild mitral regurgitation is present. Mild tricuspid regurgitation present. Right ventricular systolic pressure is normal at < 35 mmHg. There is no evidence of pulmonary hypertension. Trace/mild (physiologic) pulmonic regurgitation. The aortic root size is normal. Normal inferior vena cava with normal inspiratory collapse consistent with estimated right atrial pre ssure of 5 mmHg. There is no pericardial effusion. CONCLUSIONS -------- 1. Sinus rhythm. 2. This was a technically adequate study. 3. The left ventricular size is normal. 4. There is borderline concentric left ventricular hypertrophy. 5. There is mild global hypokinesis of LV . 6. Overall left ventricular systolic function is mildly impaired with, an EF between 45 - 50 %. 7. Normal LA size by volume 22+/-6 ml/m2. 8. The aortic valve is trileaflet, and appears structurally normal. No aortic stenosis or regurgitati on. 9. Mild mitral regurgitation is present. 10. Mild tricuspid regurgitation present. 11. Right ventricular systolic pressure is normal at < 35 mmHg. 12. Trace/mild (physiologic) pulmonic regurgitation. 13. The aortic root size is normal. 14. There is no pericardial effusion. PROJECT ECONOMIST: Khoa Mehta RDCS
--- NOTE | 2018-08-29 11:43 | P.PN ---
Subjective Patient resting in bed continues to have of left leg weakness states headache improved. Patient's had an MRI of the brain CT of the brain ultrasounds of the legs negative workup at this point awaiting consultation with neurology Objective - Vital Signs Vital signs: Vital Signs Temp 96.9 F L 08/29/18 04:00 Pulse 79 08/29/18 09:00 Resp 18 08/29/18 09:00 BP 128/81 08/29/18 09:00 Pulse Ox 96 08/29/18 09:00 Intake & Output 08/28/18 08/29/18 08/29/18 18:59 06:59 18:59 Intake Total 555 600 Balance 555 600 Weight 98.4 kg 99 kg Intake: IV 75 600 Sodium Chloride 0.9% 1, 75 600 000 ml @ 75 mls/hr IV . [id number] [facility] Rx#:[id number] Oral 480 - Constitutional General appearance: Present: obese - EENT Eyes: Present: PERRLA Ears: bilateral: normal - Neck Neck: Present: normal ROM - Respiratory Respiratory: bilateral: CTA - Cardiovascular Rhythm: regular - Gastrointestinal General gastrointestinal: Present: soft - Integumentary Integumentary: Present: normal - Neurologic Neurologic: Present: CNII-XII intact - Musculoskeletal Musculoskeletal Comment(s): Left leg weakness Musculoskeletal: Present: left sided weakness - Psychiatric Psychiatric: Present: A&O x's 3, appropriate affect, intact judgment & insight - Labs CBC & Chem 7: 08/29/18 06:11 08/29/18 06:11 Labs: Abnormal Lab Results - Last 24 Hours (Table) 08/28/18 08/28/18 08/28/18 Range/Units 16:58 20:45 22:37 WBC (3.8-10.6) k/uL POC Glucose (mg/dL) 101 H 107 H (75-99) mg/dL Ur Specific [place] 1.037 H (1.001-1.035) Urine Protein Trace H (Negative) Urine Blood Small H (Negative) Urine RBC 7 H (0-5) /hpf Urine Mucus Few H (None) /hpf 08/29/18 Range/Units 06:11 WBC 3.6 L (3.8-10.6) k/uL POC Glucose (mg/dL) (75-99) mg/dL Ur Specific [place] (1.001-1.035) Urine Protein (Negative) Urine Blood (Negative) Urine RBC (0-5) /hpf Urine Mucus (None) /hpf - Imaging and Cardiology Chest x-ray: report reviewed CT scan - chest: report reviewed CT Scan - head: report reviewed MRI - head: report reviewed Venous US: report reviewed Assessment and Plan Plan: Assessment Left leg weakness and dizziness Hyperlipidemia Seizure disorder Hypothyroidism History of colon cancer History of closed head injury History of vertigo History of bowel resection Plan Awaiting consultation with neurology
[2018-08-29 11:45] LABS: Glucose,Whole Blood 103 mg/dL (75-99)
[2018-08-29] MEDS ORDERED: MULTIVITAMINS, THERA 1 EACH TAB PO SCH (12:00)
[2018-08-29 15:24] VITALS: BP 117/62; PULSE 67
--- NOTE | 2018-08-29 18:59 | MR ---
EXAMINATION TYPE: MR lumbar spine wo con DATE OF EXAM: 08/29/2018 COMPARISON: None HISTORY: Left leg weakness. Low back pain TECHNIQUE: Multiplanar, multisequence images of the lumbar spine were acquired. Lumbar vertebra have normal alignment. There is decreased signal in the disks at L4-5 and L5-S1. Ther e is narrowing at L3-4 disc space. Lumbar nerve roots appear normal. The neural foramina are fairly w ell-maintained. There is no compression fracture. There is no lumbar paraspinal mass. I see no focal bone destruction. There is no spinal stenosis. Posterior elements are intact. The visualized sacroili ac joints appear intact. IMPRESSION: L3-4 spondylotic change. Small posterior disc bulging at L3-4 without compromise of the spinal canal. No spinal stenosis. Minimal posterior disc bulge also at L5-S1 without impingement on the spinal can al. No fracture. No spinal stenosis.
--- NOTE | 2018-08-29 19:50 | P.CNNES ---
History of Present Illness Consult date: 08/29/18 Requesting physician: Isreal Davis Reason for Consult: TIA Chief complaint: Dizziness, leftsided weakness History of Present Illness: neurology is consulting on a 53-year-old female for dizziness and left upper and lower extremity weakness. Patient was brought to the emergency room after feeling sweaty and dizzy. Patient also had reported chest pounding. Patient did have sensation of minimal chest tightness., Nausea. Patient did vomit once or twice previously. Dizziness was reportedly mild and spinning sensation associated with it. Patient does have a known history of vestibular dysfunction and was recently sent for physical therapyVAT rehabilitation with our practice. On ambulation, patient states that she was drifting towards the right however ER records state that the patient was drifting towards the left. patient states she did have visual field/peripheral vision loss but this is normal for her. She also had spots and floaters in her vision bilaterally which is also normal for the patient however they were more intense. Patient confirms that it was towards the right. denied any confusion, speech difficulty. Patient did have preliminary diagnostic workup prior to neurology consultation. diagnostic workup included CT brain which noted age-related atrophic and chronic small vessel ischemic changes without acute process. CT angiogram of the head and neck which noted no significant diameter reduction to account for symptoms. MRI brain which noted no evidence of a recent infarct, mild to minimal nonspecific white matter changes most likely on the basis of product is chronic small vessel ischemic change redemonstrated. EEG was ordered. Patient' s lipid panel was within normal limits. Patient was previously on aspirin daily at home. On contact, patient was alert and oriented 3, resting in bed in no acute distress. he reports that the patient on physical exam had noticeable left upper and lower extremity weakness during shift physical exam assessment since her stay but it has gradually waned in the upper extremity and only minimally is still present in the left lower extremity but is also improving day over day. Patient was up ambulating in the [place] without difficulty. Patient also reports intermittent low back pain on a regular basis both inpatient and at home. Patient states that the low back pain also has intermittent sensation of the left lower extremity will go completely numb and she will have to physically lift her leg into her pant leg to get dressed at times in the morning. This is going on for several months. Patient has not told her routine provider with our practice nor is any diagnostic workup and conducted of the low back to our knowledge. Review of Systems systems not noted in HPI are negative Past Medical History Past Medical History: Cancer, Hyperlipidemia, Thyroid Disorder Additional Past Medical History / Comment(s): colon CA (removed.) closed head injury 2004 with "silent seizures", heart "regurgitation", vertigo, sometimes "low blood pressure" hypothyroid, pt think she has atrial fibrillation History of Any Multi-Drug Resistant Organisms: None Reported Past Surgical History: Appendectomy, Bowel Resection, Section, Cholecystectomy, Orthopedic Surgery, Tonsillectomy Additional Past Surgical History / Comment(s): Lasik, rt foot bunionectomy, nasal surgery, HEART CATH. resection 2009 Past Anesthesia/Blood Transfusion Reactions: Family History of Problems w/ Anesthesia, Motion Sickness, Postoperative Nausea & Vomiting (PONV) Additional Past Anesthesia/Blood Transfusion Reaction / Comment(s): dizziness and low BP, diff IV starts. pt mother has diff coming out of anesthesia. Past Psychological History: No Psychological Hx Reported Smoking Status: Never smoker Past Alcohol Use History: Occasional Past Drug Use History: None Reported - Past Family History Father Family Medical History: Cancer Additional Family Medical History / Comment(s): lung CA Mother Family Medical History: Cancer Additional Family Medical History / Comment(s): colon CA Sister(s) Family Medical History: Cancer Additional Family Medical History / Comment(s): thyroid CA Medications and Allergies Home Medications Medication Instructions Recorded Confirmed Type ALPRAZolam [Xanax] 0.25 mg PO BID PRN 04/16/14 08/28/18 History Dicyclomine [Bentyl] 10 mg PO TID PRN 04/16/14 08/28/18 History Famotidine [Pepcid] 10 mg PO DAILY PRN 04/16/14 08/28/18 History Meclizine [Antivert] 25 mg PO Q8HR PRN 05/28/14 08/28/18 History Albuterol Inhaler [Ventolin Hfa 2 puff INHALATION RT-Q6H PRN 06/11/14 08/28/18 History Inhaler] Cyclobenzaprine [Flexeril] 10 mg PO TID PRN #90 tab 06/12/14 08/28/18 Rx Fluticasone Propionate [Flonase] 1 spray EA NOSTRIL DAILY PRN 11/05/14 08/28/18 History Levothyroxine Sodium [Synthroid] 25 mcg PO DAILY 11/05/14 08/28/18 History Flecainide [Tambocor] 50 mg PO Q12HR 11/11/14 08/28/18 History Montelukast [Singulair] 10 mg PO HS 09/18/17 08/28/18 History Atenolol [Tenormin] 12.5 mg PO HS #30 dose 09/19/17 08/28/18 Rx Multivitamins, Thera [Multivitamin 1 tab PO DAILY 09/19/17 08/28/18 History (formulary)] Atorvastatin [Lipitor] 10 mg PO DAILY #30 tab 08/29/18 Rx Clopidogrel [Plavix] 75 mg PO DAILY #30 tablet 08/29/18 Rx Allergies Allergy/AdvReac Type Severity Reaction Status Date / Time venom-honey bee Allergy Severe Swelling Verified 08/28/18 09:10 [bee venom (honey bee)] chlorhexidine Allergy Rash/Hives Verified 08/28/18 09:10 latex Allergy Rash/Hives, Verified 08/28/18 09:10 itching shellfish derived Allergy per Verified 08/28/18 09:10 allergy testing tramadol Allergy Nausea & Verified 08/28/18 09:10 Vomiting codeine AdvReac Confusion Verified 08/28/18 09:10 hydrocodone bitartrate AdvReac dizziness Verified 08/28/18 09:10 [From [place]] sulfamethoxazole AdvReac Rapid Verified 08/28/18 09:10 [From Bactrim] Heart Rate trimethoprim [From Bactrim] AdvReac Rapid Verified 08/28/18 09:10 Heart Rate adhesive steri-strips Allergy itching,wel Uncoded 08/28/18 07:11 ts shrimp Allergy per Uncoded 08/28/18 07:11 allergy testing narcotics AdvReac Nausea Uncoded 08/28/18 07:11 Physical Examination - Vital Signs Vital Signs: Vital Signs Temp Pulse Resp BP Pulse Ox 08/29/18 15:23 67 18 117/62 96 08/29/18 11:47 63 18 111/61 98 08/29/18 09:00 79 18 128/81 96 08/29/18 04:00 96.9 F L 65 16 143/64 97 08/29/18 00:00 96.9 F L 65 16 114/53 97 11/25/18 20:00 97 F L 72 16 111/61 97 Intake and Output 08/29/18 08/29/18 08/29/18 06:59 14:59 22:59 Intake Total 600 360 Balance 600 360 Intake: IV 600 Sodium Chloride 0.9% 1, 600 000 ml @ 75 mls/hr IV . [id number] [facility] Rx#:[id number] Oral 360 Other: # Voids 2 Weight 99 kg General appearance: Alert & oriented x3, no apparent distress. Head: Atraumatic, normocephalic, normal inspection Eyes: PERRLA, EOMI. Absent scleral icterus, conjunctival injection, nystagmus, periorbital swelling. Ear, nose and throat: Normal exam, mucous membranes moist Neck: Normal inspection, absent tenderness, lymphadenopathy. Respiratory: No increased work of breathing Cardiovascular: Regular rate, rhythm GI/abdominal: No guarding, no rigidity Extremities: moves all extremities Neurological: cranial nerves II through XII intact no lateralizing weakness no seizure activity noted on physical exam no pronator drift and no nystagmus. Strength: lateral upper extremities 4+ out of 5 Right lower extremity 4+ out of 5 Left lower extremity 4- out of 5 Sensation: Left lower extremity: normal Right lower extremity: normal Left upper extremity: normal Right upper extremity:normal Psychological: Mood and Affect appropriate for setting Results previously noted in HPI - Laboratory Findings CBC and BMP: 08/29/18 06:11 08/29/18 06:11 Abnormal Lab Findings: Abnormal Labs 08/28/18 08/28/18 08/28/18 07:34 16:58 20:45 WBC Glucose 116 H POC Glucose (mg/dL) 101 H 107 H Ur Specific [place] Urine Protein Urine Blood Urine RBC Urine Mucus 08/28/18 08/29/18 08/29/18 22:37 06:11 11:31 WBC 3.6 L Glucose POC Glucose (mg/dL) 103 H Ur Specific [place] 1.037 H Urine Protein Trace H Urine Blood Small H Urine RBC 7 H Urine Mucus Few H Assessment and Plan (1) TIA (transient ischemic attack) Current Visit: Yes Status: Acute Code(s): G45.9 - TRANSIENT CEREBRAL ISCHEMIC ATTACK, UNSPECIFIED SNOMED Code(s): 170189457 (2) Vestibular dysfunction Current Visit: Yes Status: Acute Code(s): H83.2X9 - LABYRINTHINE DYSFUNCTION , UNSPECIFIED EAR SNOMED Code(s): 895485692 (3) Left leg weakness Current Visit: Yes Status: Acute Code(s): R29.898 - OTH SYMPTOMS AND SIGNS INVOLVING THE MUSCULOSKELETAL SYSTEM SNOMED Code(s): 636039445 (4) History of cervical spinal arthrodesis Current Visit: Yes Status: Acute Code(s): Z98.1 - ARTHRODESIS STATUS SNOMED Code(s): 8694160963614 Plan: Vestibular dysfunction, TIA, left upper and lower extremity weakness: Patient does have known history of vestibular dysfunction and is currently per patient being sent for vestibular rehab with our practice in the outpatient setting. does appear at this time that the patient had concurrent etiologies ongoing at presentation. Vestibular dysfunction does appear to have been experiencing exacerbation as well as a TIA given the patient's presentation for ambulatory drift, left upper and lower extremity intermittent hemiparesis weakness which has returned to baseline in the upper extremity and is almost back to baseline in the lower extremity. Patient be changed to Plavix 75 mg by mouth daily and placed on Lipitor 10 mg by mouth daily at bedtime for added risk reduction although the patient does have a normal lipid panel, given the patient's likelihood of TIA, the patient should be started on low-dose statin therapy at this time. Hx of cervical fusion: Patient does have history of cervical fusion in 2017 does not appear to be a significant factor in the patient's presentation at this time although the patient does have complaints that are cervical related which can be further worked up in the outpatient setting and may already be in process with her routine provider in our office. Left lower extremity: Finally, the patient's low back pain and left lower extremity weakness with regard to her lumbar complaint have previously been unreported to her primary provider in our office which have been ongoing for a minimum of 2 months do not appear directly related to this occurrence. Given her statements related to ongoing requirements to physically lift her leg to get dressed on an intermittent but persistent basis of an MRI of the lumbar spine was requested for further investigation. status: Neurology will clear the patient from a neurological standpoint for discharge. Patient to follow-up in our office within 14 days with her normal provider I have discussed the plan of care with the physician prior to implementation and he agrees with the plan as implemented.
[2018-08-29 22:06] LABS: Hemoglobin A1C 5.2 % (4.0-6.0)
[2018-08-30] MEDS ORDERED: CLOPIDOGREL 75 MG TAB PO SCH (09:00)
[2018-08-30 10:32] LABS: Lyme IgG/IgM 0.1 Index
--- NOTE | 2018-08-30 12:15 | P.DS ---
Providers Date of admission: 08/28/18 09:41 Expected date of discharge: 08/29/18 Attending physician: Macario Cotton Consults: 08/28/18 09:42 Consult Physician Urgent Consulting Provider: Rodrigo Hernandez Consult Reason/Comments: l leg weakness Do you want consulting provider notified?: Yes Primary care physician: Macario Cotton Hospital Course: 53-year-old female was admitted to the emergency room with complaints of weakness and dizziness. Patient was found to have left leg weakness patient was evaluated by neurology diagnosed with the TIA vestibular dysfunction patient is to follow-up with the neurology family physician Dr. Macario Cotton patient was started on Lipitor and Plavix Assessment Acute weakness dizziness vertigo vestibular dysfunction TIA Left leg weakness Hyperlipidemia Seizure disorder Hypothyroidism History of colon cancer history of closed head injury This history of vertigo History of bowel resection Plan Lipitor and Plavix started Patient is follow-up with family physician Dr. Macario Cotton and neurology Patient Condition at Discharge: Stable Plan - Discharge Summary Discharge Rx Participant: No New Discharge Prescriptions: New Atorvastatin [Lipitor] 10 mg PO DAILY #30 tab Clopidogrel [Plavix] 75 mg PO DAILY #30 tablet No Action Famotidine [Pepcid] 10 mg PO DAILY PRN PRN Reason: Heartburn ALPRAZolam [Xanax] 0.25 mg PO BID PRN PRN Reason: Anxiety Dicyclomine [Bentyl] 10 mg PO TID PRN PRN Reason: upset stomach Meclizine [Antivert] 25 mg PO Q8HR PRN PRN Reason: dizziness Albuterol Inhaler [Ventolin Hfa Inhaler] 2 puff INHALATION RT-Q6H PRN PRN Reason: Shortness Of Breath Or Wheezing Cyclobenzaprine [Flexeril] 10 mg PO TID PRN #90 tab PRN Reason: Muscle Spasm Levothyroxine Sodium [Synthroid] 25 mcg PO DAILY Fluticasone Propionate [Flonase] 1 spray EA NOSTRIL DAILY PRN PRN Reason: Allergy Symptoms Flecainide [Tambocor] 50 mg PO Q12HR Montelukast [Singulair] 10 mg PO HS Multivitamins, Thera [Multivitamin (formulary)] 1 tab PO DAILY Atenolol [Tenormin] 12.5 mg PO HS #30 dose Discharge Medication List ALPRAZolam [Xanax] 0.25 mg PO BID PRN 04/16/14 [History] Dicyclomine [Bentyl] 10 mg PO TID PRN 04/16/14 [History] Famotidine [Pepcid] 10 mg PO DAILY PRN 04/16/14 [History] Meclizine [Antivert] 25 mg PO Q8HR PRN 05/28/14 [History] Albuterol Inhaler [Ventolin Hfa Inhaler] 2 puff INHALATION RT-Q6H PRN 06/11/14 [ History] Cyclobenzaprine [Flexeril] 10 mg PO TID PRN #90 tab 06/12/14 [Rx] Fluticasone Propionate [Flonase] 1 spray EA NOSTRIL DAILY PRN 11/05/14 [History] Levothyroxine Sodium [Synthroid] 25 mcg PO DAILY 11/05/14 [History] Flecainide [Tambocor] 50 mg PO Q12HR 11/11/14 [History] Montelukast [Singulair] 10 mg PO HS 09/18/17 [History] Atenolol [Tenormin] 12.5 mg PO HS #30 dose 09/19/17 [Rx] Multivitamins, Thera [Multivitamin (formulary)] 1 tab PO DAILY 09/19/17 [History ] Atorvastatin [Lipitor] 10 mg PO DAILY #30 tab 08/29/18 [Rx] Clopidogrel [Plavix] 75 mg PO DAILY #30 tablet 08/29/18 [Rx] Follow up Appointment(s)/Referral(s): Macario Cotton MD [Primary Care Provider] - 09/02/18 10:30 am (Wednesday) Yu Berman NPC [Nurse Practitioner] - 2 Weeks (Office is closed. Please call office to schedule follow up appointment ) Patient Instructions/Handouts: Transient Ischemic Attack (DC) Activity/Diet/Wound Care/Special Instructions: per neuro if lumbar MRI is clear - can be discharged and follow up out patient; meds remain as ordered Discharge Disposition: HOME SELF-CARE
--- NOTE | 2018-08-31 18:30 | EEG ---
ELECTROENCEPHALOGRAM REPORT DATE OF SERVICE: 08/29/2018. REASON FOR TESTING: Dizziness and history of seizures. DESCRIPTION OF THE PROCEDURE: This EEG was performed using a 21 channel digital electroencephalograph, following international 10-20 system. DESCRIPTION OF THE RECORDING: From the beginning of the tracing, and with patient's eyes closed, the background rhythm was mostly consisting of 10 Hz alpha frequency in the posterior occipital leads. No obvious asymmetry is seen. Photic stimulation was performed with a minimal driving response seen. No pathological waves were elicited. Hyperventilation was not performed. Occasional movement and lead artifacts are seen. The patient does reach stage II of sleep during the tracing and occasional sleep spindles are seen. No epileptiform discharges were noticed. Her EKG lead showed a regular rate and rhythm. INTERPRETATION: This asleep and awake EEG can be considered within normal limits. There was no asymmetry seen. No epileptiform discharges were noticed. The absence of epileptiform discharges does not rule out the diagnosis of epilepsy; therefore clinical correlation is recommended. MMTIBURCIO / ADRIANO: [id number] /
== END 2018-08-29 19:35 | disposition home or self-care (01) | DRG 69 ==
LOC: EC 07:04 → 3SCARD 09:41
PROVIDERS: ADMIT Family Medicine; ATTEND Family Medicine
DX: G45.9 Transient cerebral ischemic attack, unspecified (principal); H81.90 Unspecified disorder of vestibular function, unspecified ear; E03.9 Hypothyroidism, unspecified; E78.5 Hyperlipidemia, unspecified; H54.7 Unspecified visual loss; Z79.02 Long term (current) use of antithrombotics/antiplatelets; Z79.82 Long term (current) use of aspirin; Z79.890 Hormone replacement therapy; Z79.899 Other long term (current) drug therapy; Z80.0 Family history of malignant neoplasm of digestive organs; Z80.1 Family history of malignant neoplasm of trachea, bronchus and lung; Z80.8 Family history of malignant neoplasm of other organs or systems; Z85.038 Personal history of other malignant neoplasm of large intestine; Z90.49 Acquired absence of other specified parts of digestive tract; Z98.1 Arthrodesis status; Z79.51 Long term (current) use of inhaled steroids; Z88.2 Allergy status to sulfonamides; Z88.8 Allergy status to other drugs, medicaments and biological substances; Z91.030 Bee allergy status; Z91.040 Latex allergy status; Z87.820 Personal history of traumatic brain injury; Z88.5 Allergy status to narcotic agent
CPT/HCPCS: 36415; 70450; 70496; 70498; 70551; 71046; 72148; 80048; 80053; 80061; 81001; 82550; 82553; 83036; 84484; 85025; 85610; 85730; 86618; 93005; 93306; 95819; 96374; 99285

== ENCOUNTER → 2018-12-15 | Outpatient (CLI) | payer BC ==
--- NOTE | 2018-12-15 14:48 | US ---
EXAMINATION TYPE: US carotid duplex BILAT DATE OF EXAM: 12/15/2018 COMPARISON: Carotid US from 08/17/2012. CTA neck August 28, 2018 CLINICAL HISTORY: Z86.73 HX TRANSLENT ISCHEMIC ATTACK. TIA EXAM MEASUREMENTS: RIGHT: Peak Systolic Velocity (PSV) cm/sec ----- Right CCA: 80.1 ----- Right ICA: 91.3 ----- Right ECA: 76.8 ICA/CCA ratio: 1.1 RIGHT: End Diastole cm/sec ----- Right CCA: 24.2 ----- Right ICA: 41.6 ----- Right ECA: 17.2 LEFT: Peak Systolic Velocity (PSV) cm/sec ----- Left CCA: 75.4 ----- Left ICA: 101 ----- Left ECA: 71.8 ICA/CCA ratio: 1.3 LEFT: End Diastole cm/sec ----- Left CCA: 26.2 ----- Left ICA: 44.7 ----- Left ECA: 22.3 VERTEBRALS (direction of flow): Right Vertebral: Antegrade Left Vertebral: Antegrade Rhythm: Normal Mild homogeneous plaque seen with no significant stenosis IMPRESSION: Mild plaque at carotid bulb level bilaterally without hemodynamically significant stenos is. Findings correlate with recent CTA neck study. Criteria for Assigning % of Stenosis / Diameter reduction (Estimation based on the indirect measurements of the internal carotid artery velocities (ICA PSV). 1. Normal (no stenosis)=ICA PSV < 125 cm/s: ratio < 2.0: ICA EDV<40 cm/s. 2. Less than 50% stenosis=ICA PSV < 125 cm/s: ratio < 2.0: ICA EDV<40 cm/s. 3. 50 to 69% stenosis=ICA PSV of 125 to 230 cm/s: ration 2.0 ? 4.0: ICA EDV 40-100 cm/s. 4. Greater than 70% stenosis to near occlusion= ICA PSV > 230 cm/s: ratio > 4.0: ICA EDV > 100 cm/s. 5. Near occlusion= ICA PSV velocities may be low or undetectable: variable ratio and ICA EDV. 6. Total occlusion=unable to detect flow.
== END | disposition home or self-care (01) ==
LOC: RADUSWWP 13:41
PROVIDERS: ATTEND Family Medicine
DX: Z09 Encounter for follow-up examination after completed treatment for conditions other than malignant neoplasm (principal); I65.23 Occlusion and stenosis of bilateral carotid arteries; Z86.73 Personal history of transient ischemic attack (TIA), and cerebral infarction without residual deficits
CPT/HCPCS: 93880

== ENCOUNTER → 2019-01-11 | Outpatient (CLI) | payer BC ==
--- NOTE | 2019-01-13 10:06 | MM ---
Reason for exam: screening (asymptomatic). Last mammogram was performed 1 year and 2 months ago. History: Patient has history of other cancer at age 40. Family history of breast cancer in maternal aunt at age 65. MG discontinued stereo core LT of the left breast, November 05, 2016. Took hormonal contraceptives for 27 years beginning at age 19. Physical Findings: A clinical breast exam by your physician is recommended on an annual basis and results should be correlated with mammographic findings. MG 3D Screening Mammo W/Cad Bilateral CC and MLO view(s) were taken. Prior study comparison: November 02, 2017, bilateral MG 3d screening mammo w/cad. May 07, 2017, left breast MG 3d diag mammo w/cad LT. The breast tissue is heterogeneously dense. This may lower the sensitivity of mammography. No significant changes when compared with prior studies. ASSESSMENT: Benign, BI-RAD 2 RECOMMENDATION: Routine screening mammogram of both breasts in 1 year.
== END | disposition home or self-care (01) ==
LOC: RADMAMWWP 16:56
PROVIDERS: ATTEND Obstetrics & Gynecology
DX: Z12.31 Encounter for screening mammogram for malignant neoplasm of breast (principal); Z80.3 Family history of malignant neoplasm of breast
CPT/HCPCS: 77063; 77067

== ENCOUNTER → 2019-02-15 | Outpatient (CLI) | payer BC ==
--- NOTE | 2019-02-15 18:28 | CT ---
EXAMINATION TYPE: CT sinus wo con DATE OF EXAM: 02/15/2019 COMPARISON: CT brain August 28, 2018. HISTORY: pain and swelling to left side of mouth, sinus congestion. 5. CT DLP: 570.8 mGycm. Automated Exposure Control for Dose Reduction was Utilized. TECHNIQUE: CT scan of the sinuses is performed without contrast, axial images are obtained, coronal r eformatted images are also reviewed. FINDINGS: The paranasal sinuses including the frontal, ethmoid, sphenoid, and maxillary sinuses bila terally are well-aerated without abnormal opacification. The surgically treated ostiomeatal complex remains patent bilaterally on the coronal images. Visualized portion of mastoid air cells show no abnormal opacification. The globes are intact bilate rally. Old fracture deformity to the nasal bridge is felt present. IMPRESSION: Evidence of prior sinus surgery. No recurrent acute or residual chronic sinusitis.
== END | disposition home or self-care (01) ==
LOC: RADCTMAIN 16:56
PROVIDERS: ATTEND Otolaryngology
DX: J32.9 Chronic sinusitis, unspecified (principal); Z98.890 Other specified postprocedural states
CPT/HCPCS: 70486

== ENCOUNTER → 2019-03-23 | Outpatient (CLI) | payer BC ==
--- NOTE | 2019-03-23 08:32 | US ---
EXAMINATION TYPE: US abdomen complete DATE OF EXAM: 03/23/2019 COMPARISON: CT 07/29/2018 CLINICAL HISTORY: 53-year-old female R10.12 Left lower quad pain. TECHNIQUE: Multiple sonographic images of the abdomen are obtained. FINDINGS: EXAM MEASUREMENTS: Liver Length: 14.1 cm Gallbladder: Surgically absent CBD: 0.6 cm Spleen: 9.9 cm Right Kidney: 10.5 x 4.5 x 4.6 cm Left Kidney: 10.5 x 5.0 x 4.5 cm Pancreas: Tail obscured by overlying bowel gas Liver: wnl Gallbladder: Surgically absent Evidence for sonographic Sanches's sign: No CBD: wnl given postcholecystectomy status. Spleen: wnl Right Kidney: wnl Left Kidney: lateral portion 3.6 x 4.8 x 2.7 cm solid area, suspected dromedary hump Upper IVC: wnl Abd Aorta: wnl IMPRESSION: 1. Solid protuberance from the lateral aspect of the left kidney, suspected dromedary hump rather omar n mass. Precautionary three-month follow-up ultrasound can reassess for stability. 2. Status post cholecystectomy. 3. No specific abnormality of the abdomen otherwise seen.
== END | disposition home or self-care (01) ==
LOC: RADUSWWP 07:40
PROVIDERS: ATTEND Internal Medicine Hematology & Oncology
DX: R10.12 Left upper quadrant pain (principal); R10.13 Epigastric pain; Z90.49 Acquired absence of other specified parts of digestive tract; Z91.040 Latex allergy status; Z91.013 Allergy to seafood; Z88.5 Allergy status to narcotic agent
CPT/HCPCS: 76700

== ENCOUNTER → 2020-04-03 | Outpatient (CLI) | payer BC ==
--- NOTE | 2020-04-05 09:08 | MM ---
Reason for exam: screening (asymptomatic). Last mammogram was performed 1 year and 3 months ago. History: Patient is postmenopausal and has history of other cancer at age 40. Family history of breast cancer in maternal aunt at age 65. MG discontinued stereo core LT of the left breast, November 05, 2016. Took hormonal contraceptives for 27 years beginning at age 19. Physical Findings: A clinical breast exam by your physician is recommended on an annual basis and results should be correlated with mammographic findings. MG 3D Screening Mammo W/Cad Bilateral CC and MLO view(s) were taken. Prior study comparison: January 11, 2019, bilateral MG 3d screening mammo w/cad. November 02, 2017, bilateral MG 3d screening mammo w/cad. There are scattered fibroglandular densities. Subtle oval mass right breast central 8 o'clock position. ASSESSMENT: Incomplete: need additional imaging evaluation, BI-RAD 0 RECOMMENDATION: Special view mammogram and ultrasound of the right breast. [facility] will attempt to contact patient to return for supplemental views and ultrasound.
== END | disposition home or self-care (01) ==
LOC: RADMAMWWP 16:15
PROVIDERS: ATTEND Obstetrics & Gynecology
DX: Z12.31 Encounter for screening mammogram for malignant neoplasm of breast (principal); Z80.3 Family history of malignant neoplasm of breast
CPT/HCPCS: 77063; 77067

== ENCOUNTER → 2020-04-11 | Outpatient (CLI) | payer BC ==
--- NOTE | 2020-04-11 09:25 | MM ---
Reason for exam: additional evaluation requested from abnormal screening. Last mammogram was performed less than 1 month ago. History: Patient is postmenopausal and has history of other cancer at age 40. Family history of breast cancer in maternal aunt at age 65. MG discontinued stereo core LT of the left breast, November 05, 2016. Took hormonal contraceptives for 27 years beginning at age 19. Physical Findings: Nurse did not find any significant physical abnormalities on exam. MG 3D Work Up W/Cad RT LM view(s) were taken of the right breast. Prior study comparison: April 03, 2020, bilateral MG 3d screening mammo w/cad. January 11, 2019, bilateral MG 3d screening mammo w/cad. The breast tissue is heterogeneously dense. This may lower the sensitivity of mammography. The nodular focal asymmetry is not well seen on the lateral view. These results were verbally communicated with the patient and result sheet given to the patient on 04/11/20. ASSESSMENT: Incomplete: need additional imaging evaluation, BI-RAD 0 RECOMMENDATION: Ultrasound of the right breast.
--- NOTE | 2020-04-11 09:27 | USB ---
Reason for exam: additional evaluation requested from abnormal screening. History: Patient is postmenopausal and has history of other cancer at age 40. Family history of breast cancer in maternal aunt at age 65. MG discontinued stereo core LT of the left breast, November 05, 2016. Took hormonal contraceptives for 27 years beginning at age 19. US Breast Workup Limited RT Right limited breast ultrasound including focal area of concern, retroareolar and axilla demonstrates a 4 x 2 x 2mm cystic lesion too small to characterize at 9 o'clock. Scanned 6-12 o'clock. This may correspond to the mammographic finding. 6 month follow up recommended. These results were verbally communicated with the patient and result sheet given to the patient on 04/11/20. ASSESSMENT: Probably benign, BI-RAD 3 RECOMMENDATION: Follow-up diagnostic mammogram of the right breast in 6 months.
== END | disposition home or self-care (01) ==
LOC: RADMAMWWP 07:11
PROVIDERS: ATTEND Obstetrics & Gynecology
DX: R92.8 Other abnormal and inconclusive findings on diagnostic imaging of breast (principal)
CPT/HCPCS: 77061; 77065

== ENCOUNTER → 2020-09-17 | Outpatient (CLI) | payer BC ==
--- NOTE | 2020-09-17 10:33 | CT ---
EXAMINATION TYPE: CT ChestAbdPelvis w con DATE OF EXAM: 09/17/2020 COMPARISON: CT July 29, 2018 and older CTs HISTORY: Carcinoid tumor CT DLP: 1388.00 mGycm. Automated Exposure Control for Dose Reduction was Utilized. CONTRAST: CT scan of the thorax, abdomen and pelvis is performed with IV Contrast, patient injected with 100 ml mL of Isovue 300. FINDINGS: LUNGS: The lungs remain grossly clear, there is no concerning new parenchymal mass or nodule identifi ed. There is no pleural effusion or pneumothorax seen. The tracheobronchial tree is patent. MEDIASTINUM: There are no greater than 1 cm hilar or mediastinal lymph nodes. No cardiomegaly or pe ricardial effusion is seen. LIVER/GB: Cholecystectomy clips are redemonstrated. PANCREAS: No significant abnormality is seen. SPLEEN: No significant abnormality is seen. ADRENALS: No significant abnormality is seen. KIDNEYS: Symmetric corticomedullary uptake and excretion without concerning solid or cystic renal mas s or hydronephrosis seen bilaterally. BOWEL: IV contrast reaches level of the proximal colon making evaluation distal bowel slightly subopt imal. Surgical sutures from right-sided partial colectomy and bowel anastomosis are redemonstrated. N o suspicious small or large bowel dilatation is seen. Mild wall thickening in the transverse and left colon. Product of poor distention. Mild to moderate fecal prominence in the sigmoid rectal colon on current study. GENITAL ORGANS: Anteverted uterus is redemonstrated. Subtle lobulated fibroid-type uterus redemonstra lynnette. Low-lying exophytic fibroid axial image 116 is noted. Calcifications along anterior superior ma rgin axial image 109 are redemonstrated and presumed benign. Ovaries are symmetric and normal in size LYMPH NODES: No new greater than 1cm abdominal or pelvic lymph nodes are appreciated. OSSEOUS STRUCTURES: Moderate disc space narrowing with mild spurring L3-L4 level is redemonstrated. F acet arthropathy lower lumbar levels is seen. OTHER: [place] fat-containing umbilical hernia extending to the left axial image 80 is redemonstrat ed and stable. IMPRESSION: Evidence of prior partial colectomy and bowel anastomosis redemonstrated. No new suspicious mass or a denopathy to suggest neoplastic recurrence. No significant change from most recent CT.
== END | disposition home or self-care (01) ==
LOC: RADCTMAIN 08:17
PROVIDERS: ATTEND Internal Medicine Hematology & Oncology
DX: Z90.49 Acquired absence of other specified parts of digestive tract (principal); D3A.021 Benign carcinoid tumor of the cecum; Z88.6 Allergy status to analgesic agent; Z91.040 Latex allergy status
CPT/HCPCS: 71260; 74177; Q9967

== ENCOUNTER → 2020-10-09 | Outpatient (CLI) | payer BC ==
--- NOTE | 2020-10-10 05:20 | CT ---
EXAMINATION TYPE: CT iac wo con DATE OF EXAM: 10/09/2020 COMPARISON: Correlation CT brain 08/28/2018 HISTORY: 55-year-old female left hearing loss, dizziness. H83.12. CT DLP: 142.7 mGycm Automated exposure control for dose reduction was used. TECHNIQUE: Contiguous high-resolution axial scanning of the temporal bones performed without IV cont rast. Coronal reconstructions performed. Additional Stenver and Poschl views bilateral reconstruction s. FINDINGS: There is no abnormality of visualized intracranial structures. The skull base appears normal. The external auditory canals are patent. The middle ear cavities and mastoid air cells are well pneumatized. There is no abnormality of middle ear ossicles. The round and oval windows are normal. The vestibular and cochlear aqueducts are well visualized. There is minimal asymmetric prominence to the labyrinthine segment of the left facial canal measuring 1.4 mm versus 0.6 mm on the contralateral side. The remainder of the facial nerve canals are normal bilaterally. Otherwise, no abnormality of bony labyrinths. No dehiscence of the superior semicircular canals. The internal auditory canal and meati are symmetrical bilaterally. There is no evidence of fractures. Trace mucosal thickening ethmoid air cells. There appears to have been prior sinonasal surgery with b ilateral medial maxillary antrectomies. Reformatted images confirm above findings. IMPRESSION: 1. Minimal asymmetric prominence to the labyrinthine segment of the left facial canal measuring 1.4 m m versus 0.6 mm on the contralateral side. Findings may reflect some developmental variation. If conc emre for underlying pathology such as a small early facial nerve schwannoma, follow-up high resolution MRI of the temporal bones without and with contrast to assess for any abnormal enhancement here. 2. No evidence for dehiscence of the superior semicircular canals. 3. No specific CT abnormality of the temporal bones otherwise identified.
== END | disposition home or self-care (01) ==
LOC: RADCTMAIN 16:01
PROVIDERS: ATTEND Otolaryngology Otology & Neurotology
DX: R93.89 Abnormal findings on diagnostic imaging of other specified body structures (principal); H83.12 Labyrinthine fistula, left ear
CPT/HCPCS: 70480

== ENCOUNTER → 2020-12-12 | Outpatient (CLI) | payer BC ==
--- NOTE | 2020-12-13 09:11 | MM ---
Reason for exam: follow-up at short interval from prior study. Last mammogram was performed 8 months ago. History: Patient is postmenopausal and has history of other cancer at age 40. Family history of breast cancer in maternal aunt at age 65. MG discontinued stereo core LT of the left breast, November 05, 2016. Took hormonal contraceptives for 27 years beginning at age 19. Physical Findings: Nurse did not find any significant physical abnormalities on exam. MG 3D Diag Mammo W/Cad RT CC and MLO view(s) were taken of the right breast. Prior study comparison: April 11, 2020, right breast MG 3d work up w/cad RT. April 03, 2020, bilateral MG 3d screening mammo w/cad. The breast tissue is heterogeneously dense. This may lower the sensitivity of mammography. These results were verbally communicated with the patient and result sheet given to the patient on 12/12/20. ASSESSMENT: Benign, BI-RAD 2 RECOMMENDATION: Follow-up diagnostic mammogram of both breasts in 4 months. Back on schedule for April 2021.
== END ==
LOC: RADMAMWWP 14:13
PROVIDERS: ATTEND Obstetrics & Gynecology
DX: R92.2 Inconclusive mammogram (principal); Z80.3 Family history of malignant neoplasm of breast; Z78.0 Asymptomatic menopausal state
CPT/HCPCS: 77061; 77065

== ENCOUNTER → 2021-01-07 | Outpatient (CLI) | payer BC ==
--- NOTE | 2021-01-07 10:45 | CT ---
EXAMINATION TYPE: CT abdomen pelvis wo con DATE OF EXAM: 01/07/2021 COMPARISON: 09/17/2020 HISTORY: Unspecified abdominal pain CT DLP: 929.4 mGycm Examination of the solid and hollow viscera is limited given the lack of contrast. FINDINGS: LUNG BASES: No evidence for nodule. No evidence for infiltrate. LIVER/GB: The gallbladder is surgically absent. No space-occupying hepatic lesion. PANCREAS: No pancreatic mass identified. No inflammatory process seen. SPLEEN: No evidence for splenomegaly. No intrasplenic lesions seen. ADRENALS: No adrenal nodules identified. No evidence for thickening. KIDNEYS: No evidence for renal mass. No nephrolithiasis. No hydronephrosis. BOWEL: Evidence of prior partial colectomy and bowel anastomosis redemonstrated. No evidence of bowel obstruction. No inflammatory process. Lymph nodes: No evidence for adenopathy greater than 1 cm. Abdominal aorta: Atheromatous changes seen. No evidence for aneurysm. Genital organs: No significant abnormality. Other: Fat-containing midline ventral hernia suprapubic region. Opinion measures 3.7 cm. IMPRESSION: 1. No evidence for metastatic disease on this unenhanced study. Changes of the partial right hemicolectomy.
== END | disposition home or self-care (01) ==
LOC: RADCTMAIN 07:59
PROVIDERS: ATTEND Family Medicine
DX: R10.9 Unspecified abdominal pain (principal); Z90.49 Acquired absence of other specified parts of digestive tract
CPT/HCPCS: 74176; Q9967

== ENCOUNTER → 2021-05-05 | Outpatient (CLI) | payer BC ==
--- NOTE | 2021-05-05 11:25 | MM ---
Reason for exam: additional evaluation requested from prior study. Last mammogram was performed 5 months ago. History: Patient is postmenopausal and has history of colon cancer at age 40. Family history of breast cancer in maternal aunt at age 65. MG discontinued stereo core LT of the left breast, November 05, 2016. Took hormonal contraceptives for 27 years beginning at age 19. Physical Findings: Nurse did not find any significant physical abnormalities on exam. MG 3D Diag Mammo W/Cad ZEN Bilateral CC and MLO view(s) were taken. Prior study comparison: December 12, 2020, right breast MG 3d diag mammo w/cad RT. April 11, 2020, right breast MG 3d work up w/cad RT. January 11, 2019, bilateral MG 3d screening mammo w/cad. November 02, 2017, bilateral MG 3d screening mammo w/cad. There are scattered fibroglandular densities. No significant new findings when compared with previous films. These results were verbally communicated with the patient and result sheet given to the patient on 05/05/21. ASSESSMENT: Incomplete: need additional imaging evaluation, BI-RAD 0 RECOMMENDATION: Ultrasound of the left breast. (lateral pain)
--- NOTE | 2021-05-05 11:27 | USB ---
Reason for exam: additional evaluation requested from abnormal screening. History: Patient is postmenopausal and has history of colon cancer at age 40. Family history of breast cancer in maternal aunt at age 65. MG discontinued stereo core LT of the left breast, November 05, 2016. Took hormonal contraceptives for 27 years beginning at age 19. US Breast Limited LT Technologist: Althea Liu Left limited breast ultrasound including focal area of concern, retroareolar and axilla demonstrates a 1.1 x 1.1 x 0.7cm hypoechoic lesion at 2 o'clock. Scanned 12-6 o'clock. These results were verbally communicated with the patient and result sheet given to the patient on 05/05/21. ASSESSMENT: Suspicious, BI-RAD 4 RECOMMENDATION: Ultrasound core biopsy of the left breast. Called Dr. Graf's office with mammographic findings and has scheduled an appointment for the patient for 05/05/21 at 4:[address] Costello. Biopsy scheduled for 05/15/21 at 12:00. PRELIMINARY REPORT CALLED AND FAXED TO DR. COSTELLO ON 05/05/21.
== END | disposition home or self-care (01) ==
LOC: RADMAMWWP 07:08
PROVIDERS: ATTEND Obstetrics & Gynecology
DX: R92.8 Other abnormal and inconclusive findings on diagnostic imaging of breast (principal); N64.4 Mastodynia
CPT/HCPCS: 77062; 77066

== ENCOUNTER → 2021-05-15 | Day surgery (SDC) | payer BC ==
[2021-05-15 12:40] VITALS: BP 115/76; PULSE 74; RESP 16; TEMP 98.1
--- NOTE | 2021-05-15 17:00 | USB ---
EXAMINATION TYPE: US discontinued breast bx LT DATE OF EXAM: 05/15/2021 COMPARISON: 05/05/2021 HISTORY: 55-year-old female with left breast pain and referred for stereotactic core needle biopsy 2: 00 left breast TECHNIQUE AND FINDINGS: Planning ultrasound was performed prior to the biopsy at the 2:00 position. W ith the current ultrasound settings, the questioned 1.1 cm mass corresponds well to a normal fat lobu le which elongates on antiradial imaging. Findings and impression were discussed with the patient. Bi opsy is canceled. A six-month follow-up ultrasound will be performed as a precautionary measure. IMPRESSION: BI-RADS 3, probably benign RECOMMENDATION: 1. Precautionary 6 month follow-up targeted 2 o'clock left breast ultrasound for what appears to be a benign fat lobule. 2. Patient should continue monthly self breast exams. Further clinical management of patient's latera l left breast pain. 3. This exam should not preclude additional follow-up of suspicious palpable abnormalities.
== END ==
LOC: RADUSWWP 11:55
PROVIDERS: ATTEND Internal Medicine Hematology & Oncology
DX: N64.4 Mastodynia (principal)

== ENCOUNTER 2021-08-18 17:48 | Emergency (ER) | payer BC ==
[2021-08-18 18:45] VITALS: BP 131/81; PULSE 69; RESP 20; TEMP 98.3
--- NOTE | 2021-08-18 20:19 | US ---
EXAMINATION TYPE: US venous doppler duplex LE LT DATE OF EXAM: 08/18/2021 8:04 PM COMPARISON: US CLINICAL HISTORY: rule out blood clot, pain. Pain. Patient is on Plavix. SIDE PERFORMED: Left TECHNIQUE: The lower extremity deep venous system is examined utilizing real time linear array sonog valeria with graded compression, doppler sonography and color-flow sonography. VESSELS IMAGED: Common Femoral Vein Deep Femoral Vein Greater Saphenous Vein * Femoral Vein Popliteal Vein Small Saphenous Vein * Proximal Calf Veins (* superficial vessels) Left Leg: Anechoic area seen left medial popliteal area : 5.6 x 4.0 x 1.8 cm. No evidence of DVT in veins imaged at this time. IMPRESSION: No evidence of deep vein thrombosis. There is popliteal cyst.
--- NOTE | 2021-08-18 21:00 | ED ---
Lower Extremity Injury HPI - General Chief Complaint: Extremity Injury, Lower Stated Complaint: Possible Blood Clot Left Leg Time Seen by Provider: 08/18/21 20:03 Source: patient, RN notes reviewed Mode of arrival: ambulatory Limitations: no limitations - History of Present Illness Initial Comments: Patient is a 56-year-old female presenting to the emergency Department with complaints of pain behind her left knee started 2 days ago. She is concerned for possible blood clot. She is on Plavix. She denies any injuries or trauma to the left leg. She states she started feeling pain behind her left knee, there was some mild redness and warmth to the area and she thought she felt a bump. She denies history of blood clots in the past. She denies fevers or chills, no nausea or vomiting, no chest pain or shortness of breath, no cough. She has no further complaints today. - Related Data Home Medications Medication Instructions Recorded Confirmed ALPRAZolam [Xanax] 0.25 mg PO BID PRN 04/16/14 05/15/21 Dicyclomine [Bentyl] 10 mg PO TID PRN 04/16/14 05/15/21 Famotidine [Pepcid] 10 mg PO DAILY PRN 04/16/14 05/15/21 Meclizine [Antivert] 25 mg PO Q8HR PRN 05/28/14 05/15/21 Albuterol Inhaler (Mhu) [Ventolin 2 puff INHALATION RT-Q6H PRN 06/11/14 05/15/21 Hfa Inhaler (Mhu)] Fluticasone Propionate [Flonase] 1 spray EA NOSTRIL DAILY PRN 11/05/14 05/15/21 Levothyroxine Sodium [Synthroid] 25 mcg PO DAILY 11/05/14 05/15/21 Flecainide [Tambocor] 50 mg PO Q12HR 11/11/14 05/15/21 Montelukast [Singulair] 10 mg PO HS 09/18/17 05/15/21 Multivitamins, Thera [Multivitamin 1 tab PO DAILY 09/19/17 05/15/21 (formulary)] Ergocalciferol [Vitamin D2 (1250 2,000 mcg PO DAILY 05/15/21 05/15/21 Mcg = 89563 Iu)] Previous Rx's Medication Instructions Recorded Cyclobenzaprine [Flexeril] 10 mg PO TID PRN #90 tab 06/12/14 atenoloL [Tenormin] 12.5 mg PO HS #30 dose 09/19/17 Atorvastatin [Lipitor] 10 mg PO DAILY #30 tab 08/29/18 Clopidogrel [Plavix] 75 mg PO DAILY #30 tablet 08/29/18 Allergies Allergy/AdvReac Type Severity Reaction Status Date / Time venom-honey bee Allergy Severe Swelling Verified 08/18/21 18:43 [bee venom (honey bee)] chlorhexidine Allergy Rash/Hives Verified 08/18/21 18:43 latex Allergy Rash/Hives, Verified 08/18/21 18:43 itching shellfish derived Allergy per Verified 08/18/21 18:43 allergy testing tramadol Allergy Nausea & Verified 08/18/21 18:43 Vomiting codeine AdvReac Confusion Verified 08/18/21 18:43 hydrocodone bitartrate AdvReac dizziness Verified 08/18/21 18:43 [From [place]] sulfamethoxazole AdvReac Rapid Verified 08/18/21 18:43 [From Bactrim] Heart Rate trimethoprim [From Bactrim] AdvReac Rapid Verified 08/18/21 18:43 Heart Rate adhesive steri-strips Allergy itching,wel Uncoded 08/18/21 18:43 ts shrimp Allergy per Uncoded 08/18/21 18:43 allergy testing narcotics AdvReac Nausea Uncoded 08/18/21 18:43 Review of Systems ROS Statement: Those systems with pertinent positive or pertinent negative responses have been documented in the HPI. ROS Other: All systems not noted in ROS Statement are negative. Past Medical History Past Medical History: Cancer, CVA/TIA, Hyperlipidemia, Thyroid Disorder Additional Past Medical History / Comment(s): colon CA (removed.) closed head injury 2004 , heart "regurgitation", vertigo, hypothyroid, pt think she has atrial fibrillation History of Any Multi-Drug Resistant Organisms: None Reported Past Surgical History: Appendectomy, Bowel Resection, Section, Cholecystectomy, Orthopedic Surgery, Tonsillectomy Additional Past Surgical History / Comment(s): Lasik, rt foot bunionectomy, nasal surgery, HEART CATH. resection 2009,neck surgery T 4,5,6,7? right wrist surgery Past Anesthesia/Blood Transfusion Reactions: Family History of Problems w/ Anesthesia, Motion Sickness, Postoperative Nausea & Vomiting (PONV) Additional Past Anesthesia/Blood Transfusion Reaction / Comment(s): dizziness and low BP, diff IV starts. pt mother has diff coming out of anesthesia. Past Psychological History: No Psychological Hx Reported Smoking Status: Never smoker Past Alcohol Use History: Occasional Past Drug Use History: None Reported - Past Family History Father Family Medical History: Cancer Additional Family Medical History / Comment(s): lung CA Mother Family Medical History: Cancer Additional Family Medical History / Comment(s): colon CA Sister(s) Family Medical History: Cancer Additional Family Medical History / Comment(s): thyroid CA General Exam - General Exam Comments Initial Comments: GENERAL: Patient is well-developed and well-nourished. Patient is nontoxic and in no acute distress. HEAD: Atraumatic, normocephalic. EYES: Pupils equal round and reactive to light, extraocular movements intact, sclera anicteric, conjunctiva are normal. Eyelids were unremarkable. LUNGS: Unlabored respirations. Breath sounds clear to auscultation bilaterally and equal. No wheezes rales or rhonchi. HEART: Regular rate and rhythm without murmurs, rubs or gallops. MUSCULOSKELETAL: Normal extremities with adequate strength and normal range of motion, no pitting or edema. No clubbing or cyanosis. NEUROLOGICAL: Patient is alert and oriented x 3. Normal speech, normal gait. PSYCH: Normal mood, normal affect. SKIN: Warm, Dry, normal turgor, no rashes. Patient has some mild pain on the posterior aspect the left knee, there is a small bump felt. No erythema, no swelling, no deformity, she is neurovascular intact bilateral lower extremities. Limitations: no limitations Course Vital Signs 08/18/21 18:43 Temperature 98.3 F Pulse Rate 69 Respiratory 20 Rate Blood Pressure 131/81 O2 Sat by Pulse 99 Oximetry Medical Decision Making - Medical Decision Making Patient is a 56-year-old female here with pain behind her left knee over the past 2 days, should concerns for blood clot. She is on Plavix. Ultrasound reveals no evidence for DVT, there is a popliteal cyst, measuring 5 x 4 x 1. I discussed these findings with her. If symptoms persist she can follow with orthopedic doctor. She is agreeable to this plan and care and she is stable for discharge. Disposition Clinical Impression: Synovial cyst of left popliteal space Disposition: HOME SELF-CARE Condition: Stable Instructions (If sedation given, give patient instructions): Bakers Cyst (ED) Additional Instructions: Please return to the Emergency Department if symptoms worsen or any other concerns. If symptoms persist, follow up with your orthopedic doctor. Is patient prescribed a controlled substance at d/c from ED?: No Referrals: Macario Cotton MD [Primary Care Provider] - 1-2 days Time of Disposition: 20:59
== END 2021-08-18 21:33 | disposition home or self-care (01) ==
LOC: EC 17:48
DX: M71.22 Synovial cyst of popliteal space [Baker], left knee (principal); E78.5 Hyperlipidemia, unspecified; E07.9 Disorder of thyroid, unspecified; Z79.02 Long term (current) use of antithrombotics/antiplatelets; Z91.040 Latex allergy status; Z88.1 Allergy status to other antibiotic agents; Z88.5 Allergy status to narcotic agent; Z88.2 Allergy status to sulfonamides; Z86.73 Personal history of transient ischemic attack (TIA), and cerebral infarction without residual deficits; Z85.038 Personal history of other malignant neoplasm of large intestine; Z90.49 Acquired absence of other specified parts of digestive tract
CPT/HCPCS: 99283

== ENCOUNTER 2021-10-06 05:52 | Emergency (ER) | payer BC ==
--- NOTE | 2021-10-06 07:50 | XR ---
EXAMINATION TYPE: XR chest 2V DATE OF EXAM: 10/06/2021 COMPARISON: Chest x-ray August 28, 2018. CT chest September 17, 2020 HISTORY: Chest pain. COVID positive. History of carcinoid tumor. TECHNIQUE: Frontal and lateral views of the chest are obtained. FINDINGS: There is no Suspicious focal air space opacity, pleural effusion, or pneumothorax seen. T he cardiac silhouette size is stable and within normal limits. Anterior fusion plate in the lower cer vical spine is partially imaged. Cholecystectomy clips noted on lateral view. IMPRESSION: No acute process.
[2021-10-06] MEDS ORDERED: BAMLANIVIMAB (EUA) 700 MG, ETESEVIMAB (EUA) 1,400 MG in SODIUM CHLORIDE 0.9% 100 ML IVPB ONE (08:30)
[2021-10-06] MEDS ORDERED: SODIUM CHLORIDE 0.9% 50 ML IVPB ONE (08:30)
[2021-10-06] MEDS ORDERED: ACETAMINOPHEN TAB 500 MG TAB PO STA (08:50)
--- NOTE | 2021-10-06 08:54 | ED ---
General Adult HPI - General Chief complaint: Upper Respiratory Infection Stated complaint: Covid+,Upper Abd/Back Pain Time Seen by Provider: 10/06/21 07:00 Source: patient, RN notes reviewed, old records reviewed Mode of arrival: ambulatory Limitations: no limitations - History of Present Illness Initial comments: This is a 56 old female presents emergency department stating she started having some congestion and little bit of cough on 1229. Patient states 2 days later she tests positive for COVID. Patient was post get monoclonal antibodies but jonah williamson was never called back by her physician so she came to the emergency department today. Patient does complain of some rib pain on the left side particularly when she moves or coughs. Patient states she's not short of breath and she doesn't have any fever or chills. Patient hasn't lost her taste or smell. Patient denies any abdominal pain. Patient states she did get vaccinated with both vaccines and posterior. Patient states she is a cancer patient she is being treated over the last 10 years with hormone therapy for carcinoid tumors. - Related Data Home Medications Medication Instructions Recorded Confirmed ALPRAZolam [Xanax] 0.25 mg PO BID PRN 04/16/14 05/15/21 Dicyclomine [Bentyl] 10 mg PO TID PRN 04/16/14 05/15/21 Famotidine [Pepcid] 10 mg PO DAILY PRN 04/16/14 05/15/21 Meclizine [Antivert] 25 mg PO Q8HR PRN 05/28/14 05/15/21 Albuterol Inhaler (Mhu) [Ventolin 2 puff INHALATION RT-Q6H PRN 06/11/14 05/15/21 Hfa Inhaler (Mhu)] Fluticasone Propionate [Flonase] 1 spray EA NOSTRIL DAILY PRN 11/05/14 05/15/21 Levothyroxine Sodium [Synthroid] 25 mcg PO DAILY 11/05/14 05/15/21 Flecainide [Tambocor] 50 mg PO Q12HR 11/11/14 05/15/21 Montelukast [Singulair] 10 mg PO HS 09/18/17 05/15/21 Multivitamins, Thera [Multivitamin 1 tab PO DAILY 09/19/17 05/15/21 (formulary)] Ergocalciferol [Vitamin D2 (1250 2,000 mcg PO DAILY 05/15/21 05/15/21 Mcg = 93958 Iu)] Previous Rx's Medication Instructions Recorded Cyclobenzaprine [Flexeril] 10 mg PO TID PRN #90 tab 06/12/14 atenoloL [Tenormin] 12.5 mg PO HS #30 dose 09/19/17 Atorvastatin [Lipitor] 10 mg PO DAILY #30 tab 08/29/18 Clopidogrel [Plavix] 75 mg PO DAILY #30 tablet 08/29/18 Allergies Allergy/AdvReac Type Severity Reaction Status Date / Time venom-honey bee Allergy Severe Swelling Verified 10/06/21 06:37 [bee venom (honey bee)] chlorhexidine Allergy Rash/Hives Verified 10/06/21 06:37 latex Allergy Rash/Hives, Verified 10/06/21 06:37 itching shellfish derived Allergy per Verified 10/06/21 06:37 allergy testing tramadol Allergy Nausea & Verified 10/06/21 06:37 Vomiting codeine AdvReac Confusion Verified 10/06/21 06:37 hydrocodone bitartrate AdvReac dizziness Verified 10/06/21 06:37 [From [place]] sulfamethoxazole AdvReac Rapid Verified 10/06/21 06:37 [From Bactrim] Heart Rate trimethoprim [From Bactrim] AdvReac Rapid Verified 10/06/21 06:37 Heart Rate adhesive steri-strips Allergy itching,wel Uncoded 10/06/21 06:37 ts shrimp Allergy per Uncoded 10/06/21 06:37 allergy testing narcotics AdvReac Nausea Uncoded 10/06/21 06:37 Review of Systems ROS Statement: Those systems with pertinent positive or pertinent negative responses have been documented in the HPI. ROS Other: All systems not noted in ROS Statement are negative. Past Medical History Past Medical History: Cancer, CVA/TIA, Hyperlipidemia, Thyroid Disorder Additional Past Medical History / Comment(s): colon CA (removed.) closed head injury 2004 , heart "regurgitation", vertigo, hypothyroid, pt think she has atrial fibrillation. pt c/o multiple tumors History of Any Multi-Drug Resistant Organisms: None Reported Past Surgical History: Appendectomy, Bowel Resection, Section, Cholecystectomy, Orthopedic Surgery, Tonsillectomy Additional Past Surgical History / Comment(s): Lasik, rt foot bunionectomy, nasal surgery, HEART CATH. resection 2010,neck surgery T 4,5,6,7? right wrist surgery Past Anesthesia/Blood Transfusion Reactions: Family History of Problems w/ Anesthesia, Motion Sickness, Postoperative Nausea & Vomiting (PONV) Additional Past Anesthesia/Blood Transfusion Reaction / Comment(s): dizziness and low BP, diff IV starts. pt mother has diff coming out of anesthesia. Past Psychological History: No Psychological Hx Reported Smoking Status: Never smoker Past Alcohol Use History: Occasional Past Drug Use History: None Reported - Past Family History Father Family Medical History: Cancer Additional Family Medical History / Comment(s): lung CA Mother Family Medical History: Cancer Additional Family Medical History / Comment(s): colon CA Sister(s) Family Medical History: Cancer Additional Family Medical History / Comment(s): thyroid CA General Exam - General Exam Comments Initial Comments: GENERAL: Patient is well-developed and well-nourished. Patient is nontoxic and well- hydrated and is in mild distress. ENT: Neck is soft and supple. No significant lymphadenopathy is noted. Oropharynx is clear. Moist mucous membranes. Neck has full range of motion without eliciting any pain. EYES: The sclera were anicteric and conjunctiva were pink and moist. Extraocular movements were intact and pupils were equal round and reactive to light. Eyelids were unremarkable. PULMONARY: Unlabored respirations. Good breath sounds bilaterally. No audible rales rhonc hi or wheezing was noted. CARDIOVASCULAR: There is a regular rate and rhythm without any murmurs gallops or rubs. Left lateral ribs are tender to palpation ABDOMEN: Soft and nontender with normal bowel sounds. SKIN: Skin is clear with no lesions or rashes and otherwise unremarkable. NEUROLOGIC: Patient is alert and oriented x3. Cranial nerves II through XII are grossly intact. Motor and sensory are also intact. Normal speech, volume and content. Symmetrical smile. MUSCULOSKELETAL: Normal extremities with adequate strength and full range of motion. LYMPHATICS: No significant lymphadenopathy is noted PSYCHIATRIC: Normal psychiatric evaluation. Limitations: no limitations Course Vital Signs 10/06/21 06:31 Temperature 100.0 F H Pulse Rate 69 Respiratory 20 Rate Blood Pressure 121/82 O2 Sat by Pulse 97 Oximetry Medical Decision Making - Medical Decision Making Chest x-ray is normal. EKG shows normal sinus rhythm at 64 bpm NE interval 180 QRS 66 QT interval is 48 QTC is 420. Patient's EKG shows no ST segment elevation or depression. Patient received monoclonal antibodies. Disposition Clinical Impression: COVID-19 Disposition: HOME SELF-CARE Instructions (If sedation given, give patient instructions): Coronavirus Disease 2019 (COVID-19) Is patient prescribed a controlled substance at d/c from ED?: No Referrals: Macario Cotton MD [Primary Care Provider] - 1-2 days Time of Disposition: 08:53
[2021-10-06 08:56] VITALS: BP 107/68; PULSE 63; RESP 18; TEMP 98.5
== END 2021-10-06 11:18 | disposition home or self-care (01) ==
LOC: EC 05:52
DX: U07.1 COVID-19 (principal); E78.5 Hyperlipidemia, unspecified; Z86.73 Personal history of transient ischemic attack (TIA), and cerebral infarction without residual deficits; E03.9 Hypothyroidism, unspecified; I48.91 Unspecified atrial fibrillation; Z72.89 Other problems related to lifestyle
CPT/HCPCS: 93005; 71046; 99283; 96360; J3490

== ENCOUNTER → 2021-11-17 | Outpatient (CLI) | payer BC ==
--- NOTE | 2021-11-17 09:10 | USB ---
Reason for exam: follow-up at short interval from prior study. History: Patient is postmenopausal and has history of colon cancer at age 40. Family history of breast cancer in maternal aunt at age 65. US discontinued breast bx LT of the left breast, May 15, 2021. MG discontinued stereo core LT of the left breast, November 05, 2016. Took hormonal contraceptives for 27 years beginning at age 19. Physical Findings: Nurse Summary: Patient complains of left breast upper outer quadrant paint x 1 month, nurse did not find any significant physical abnormalities on exam. US Breast Limited LT Left limited breast ultrasound including focal area of concern, retroareolar and axilla demonstrates no cystic or solid lesion seen. Scanned 12-3 o'clock. The previousl area at 2 o'clock presumed benign fat lobule has not persisted. These results were verbally communicated with the patient and result sheet given to the patient on 11/17/21. ASSESSMENT: Probably benign, BI-RAD 3 RECOMMENDATION: Follow-up diagnostic mammogram of both breasts in 6 months. Back on schedule. Manage on a clinical basis with regard to left breast pain.
== END | disposition home or self-care (01) ==
LOC: RADUSWWP 07:32
PROVIDERS: ATTEND Obstetrics & Gynecology
DX: R92.8 Other abnormal and inconclusive findings on diagnostic imaging of breast (principal); Z80.3 Family history of malignant neoplasm of breast; Z78.0 Asymptomatic menopausal state

== ENCOUNTER → 2021-12-11 | Outpatient (CLI) | payer BC ==
--- NOTE | 2021-12-11 22:27 | CT ---
EXAMINATION TYPE: CT soft tissue neck wo/w con DATE OF EXAM: 12/11/2021 5:29 PM COMPARISON: CT dated 08/28/2018 HISTORY: Soft tissue mass CT DLP: 1218.4 mGycm Automated exposure control for dose reduction was used. CONTRAST: CT scan of the neck is performed following without and with IV Contrast, patient injected with 100ml mL of Isovue 300. Axial images are obtained, coronal and sagittal reformatted images are reviewed. FINDINGS: Unremarkable nasopharynx, oropharynx, hypopharynx, larynx and visualized trachea and esophagus. Unrem arkable thyroid gland. Unremarkable symmetrical parotid and submandibular salivary glands. No patholo gically enlarged lymph nodes in the neck. The ascending aorta measures 3.9 cm. Small right vertebral artery. Otherwise patent major neck vessel s. Anterior spinal fixation from C4 down to C7. No aggressive bone lesion. IMPRESSION: No definite suspicious lesion or lymphadenopathy seen in the neck. Incidental findings as described a renato.
== END | disposition home or self-care (01) ==
LOC: RADCTMAIN 16:51
PROVIDERS: ATTEND Psychiatry & Neurology Neurology
DX: M79.89 Other specified soft tissue disorders (principal)
CPT/HCPCS: 70492; Q9967

== ENCOUNTER → 2022-06-16 | Outpatient (CLI) | payer BC ==
--- NOTE | 2022-06-18 12:19 | MM ---
Reason for Exam: Additional evaluation requested from prior study. Last mammogram was performed 1 year(s) and 1 month(s) ago. Patient History: Menarche at age 14. First Full-Term at age 18. Postmenopausal. Patient has history of breast feeding. Colorectal cancer, age 40. Hormonal Contraceptives, starting at age 19 for 27 years. 05/15/2021, US discontinued breast bx LT on the left side. 11/05/2016, MG discontinued stereo core LT on the left side. Maternal aunt had breast cancer, age 65. Risk Values: Mattie 5 year model risk: 0.8%. NCI Lifetime model risk: 5.3%. Prior Study Comparison: 11/02/2017 Bilateral Screening Mammogram, [facility]. 04/03/2020 Bilateral Screening Mammogram, [facility]. 12/12/2020 Right Diagnostic Mammogram, [facility]. 05/05/2021 Bilateral Diagnostic Mammogram, [facility]. 11/17/2021 Left Diagnostic Ultrasound, [facility]. Tissue Density: There are scattered fibroglandular densities. Findings: Analyzed By CAD. Prominent but benign-appearing bilateral axillary lymph nodes on current study. Overall Assessment: Negative, BI-RAD 1 Management: Screening Mammogram of both breasts in 1 year. A clinical breast exam by your physician is recommended on an annual basis and results should be correlated with mammographic findings. This exam should not preclude additional follow-up of suspicious palpable abnormalities. Electronically signed and approved by: Jose D Elias M.D.
== END | disposition home or self-care (01) ==
LOC: RADMAMWWP 12:54
PROVIDERS: ATTEND Obstetrics & Gynecology
DX: R92.8 Other abnormal and inconclusive findings on diagnostic imaging of breast (principal); Z78.0 Asymptomatic menopausal state; Z80.3 Family history of malignant neoplasm of breast
CPT/HCPCS: 77062; 77066

== ENCOUNTER 2022-08-02 11:35 | Emergency (ER) | payer BC ==
[2022-08-02 11:56] VITALS: TEMP 97.8
[2022-08-02] MEDS ORDERED: SODIUM CHLORIDE 0.9% 500 ML 500 ML IV STA (12:17)
[2022-08-02] MEDS ORDERED: METOCLOPRAMIDE 5 MG/ML 2 ML VIAL IVP STA (12:18)
[2022-08-02] MEDS ORDERED: MECLIZINE 12.5 MG TAB PO STA (12:18)
--- NOTE | 2022-08-02 12:21 | ED ---
General Adult HPI - General Chief complaint: Dizziness Stated complaint: dizziness Time Seen by Provider: 08/02/22 12:03 Source: patient, RN notes reviewed Mode of arrival: ambulatory Limitations: no limitations - History of Present Illness Initial comments: Patient is a pleasant 57-year-old female presenting to the emergency Department with complaints of dizziness. Onset was when she woke this morning. Patient turned and felt dizzy. There was a spinning type sensation. Symptoms were somewhat worse with upright position. Symptoms are improving however not resolved. Patient still feels lightheaded. Patient does have nausea that still remains. Patient did feel a bit sweaty earlier. No isolated area of weakness or confusion. No loss of sensation. No chest pain or dyspnea. Patient did take one Antivert prior to arrival - Related Data Home Medications Medication Instructions Recorded Confirmed ALPRAZolam [Xanax] 0.25 mg PO BID PRN 04/16/14 05/15/21 Dicyclomine [Bentyl] 10 mg PO TID PRN 04/16/14 05/15/21 Famotidine [Pepcid] 10 mg PO DAILY PRN 04/16/14 05/15/21 Meclizine [Antivert] 25 mg PO Q8HR PRN 05/28/14 05/15/21 Albuterol Inhaler [Ventolin Hfa 2 puff INHALATION RT-Q6H PRN 06/11/14 05/15/21 Inhaler] Fluticasone Propionate [Flonase] 1 spray EA NOSTRIL DAILY PRN 11/05/14 05/15/21 Levothyroxine Sodium [Synthroid] 25 mcg PO DAILY 11/05/14 05/15/21 Flecainide [Tambocor] 50 mg PO Q12HR 11/11/14 05/15/21 Montelukast [Singulair] 10 mg PO HS 09/18/17 05/15/21 Multivitamins, Thera [Multivitamin 1 tab PO DAILY 09/19/17 05/15/21 (formulary)] Ergocalciferol [Vitamin D2 (1250 2,000 mcg PO DAILY 05/15/21 05/15/21 Mcg = [id number] Iu)] Previous Rx's Medication Instructions Recorded Cyclobenzaprine [Flexeril] 10 mg PO TID PRN #90 tab 06/12/14 atenoloL [Tenormin] 12.5 mg PO HS #30 dose 09/19/17 Atorvastatin [Lipitor] 10 mg PO DAILY #30 tab 08/29/18 Clopidogrel [Plavix] 75 mg PO DAILY #30 tablet 08/29/18 Metoclopramide HCl [Reglan] 10 mg PO Q6HR PRN #15 tablet 08/02/22 Allergies Allergy/AdvReac Type Severity Reaction Status Date / Time venom-honey bee Allergy Severe Swelling Verified 08/02/22 11:56 [bee venom (honey bee)] chlorhexidine Allergy Rash/Hives Verified 08/02/22 11:56 latex Allergy Rash/Hives, Verified 08/02/22 11:56 itching shellfish derived Allergy per Verified 08/02/22 11:56 allergy testing tramadol Allergy Nausea & Verified 08/02/22 11:56 Vomiting codeine AdvReac Confusion Verified 08/02/22 11:56 hydrocodone bitartrate AdvReac dizziness Verified 08/02/22 11:56 [From [place]] sulfamethoxazole AdvReac Rapid Verified 08/02/22 11:56 [From Bactrim] Heart Rate trimethoprim [From Bactrim] AdvReac Rapid Verified 08/02/22 11:56 Heart Rate adhesive steri-strips Allergy itching,wel Uncoded 08/02/22 11:56 ts shrimp Allergy per Uncoded 08/02/22 11:56 allergy testing narcotics AdvReac Nausea Uncoded 08/02/22 11:56 Review of Systems ROS Statement: Those systems with pertinent positive or pertinent negative responses have been documented in the HPI. ROS Other: All systems not noted in ROS Statement are negative. Constitutional: Denies: fever Eyes: Denies: eye pain ENT: Denies: ear pain Respiratory: Denies: cough Cardiovascular: Denies: chest pain Endocrine: Denies: fatigue Gastrointestinal: Reports: as per HPI, nausea. Denies: abdominal pain Genitourinary: Denies: dysuria Musculoskeletal: Denies: back pain Skin: Denies: rash Neurological: Reports: as per HPI. Denies: headache, confusion Past Medical History Past Medical History: Cancer, CVA/TIA, Hyperlipidemia, Thyroid Disorder Additional Past Medical History / Comment(s): colon CA (removed.) closed head injury 2004 , heart "regurgitation", vertigo, hypothyroid, pt think she has atrial fibrillation. pt c/o multiple tumors History of Any Multi-Drug Resistant Organisms: None Reported Past Surgical History: Appendectomy, Bowel Resection, Section, Cholecystectomy, Orthopedic Surgery, Tonsillectomy Additional Past Surgical History / Comment(s): Lasik, rt foot bunionectomy, nasal surgery, HEART CATH. resection 2010,neck surgery T 4,5,6,7? right wrist surgery Past Anesthesia/Blood Transfusion Reactions: Family History of Problems w/ Anesthesia, Motion Sickness, Postoperative Nausea & Vomiting (PONV) Additional Past Anesthesia/Blood Transfusion Reaction / Comment(s): dizziness and low BP, diff IV starts. pt mother has diff coming out of anesthesia. Past Psychological History: No Psychological Hx Reported Smoking Status: Never smoker Past Alcohol Use History: Occasional Past Drug Use History: None Reported - Past Family History Father Family Medical History: Cancer Additional Family Medical History / Comment(s): lung CA Mother Family Medical History: Cancer Additional Family Medical History / Comment(s): colon CA Sister(s) Family Medical History: Cancer Additional Family Medical History / Comment(s): thyroid CA General Exam Limitations: no limitations General appearance: alert, in no apparent distress Head exam: Present: normocephalic Eye exam: Present: normal appearance, PERRL, EOMI Neck exam: Present: normal inspection Respiratory exam: Present: normal lung sounds bilaterally Cardiovascular Exam: Present: regular rate, normal rhythm Expanded Peripheral pulses: 2+: Radial (R), Radial (L), Posterior Tibialis (R), Posterior Tibialis (L) GI/Abdominal exam: Present: soft. Absent: tenderness Extremities exam: Present: normal inspection Neurological exam: Present: alert, CN II-XII intact. Absent: motor sensory deficit Expanded Neurological exam: Present: protecting the airway Speech: Present: fluid speech Cranial nerves: EOM's Intact: Normal Sensory exam: Upper Extremity Light Touch: Normal, Lower Extremity Light Touch: Normal Motor strength exam: RUE: 5, LUE: 5, RLE: 5, LLE: 5 Eye Response: (4) open spontaneously Motor Response: (6) obeys commands Verbal Response: (5) oriented Psychiatric exam: Present: normal affect, normal mood Skin exam: Present: normal color Course Vital Signs 08/02/22 08/02/22 11:52 13:00 Temperature 97.8 F Pulse Rate 65 60 Respiratory 18 20 Rate Blood Pressure 111/70 152/81 O2 Sat by Pulse 100 100 Oximetry EKG Findings - EKG Comments: EKG Findings:: 6. Cardiac 54. For screening AV block NE 219. QRS 107. QT 39. QTC 424. Normal axis. Normal QRS. No acute ST change. Medical Decision Making - Medical Decision Making Patient again reevaluated and doing even further better. Patient was updated on results and comfortable discharge home. - Lab Data Result diagrams: 08/02/22 12:19 08/02/22 12:19 Lab Results 08/02/22 08/02/22 08/02/22 Range/Units 12:19 12:19 12:19 WBC 4.6 (3.8-10.6) k/uL RBC 4.55 (3.80-5.40) m/uL Hgb 14.4 (11.4-16.0) gm/dL Hct 43.1 (34.0-46.0) % MCV 94.8 (80.0-100.0) fL MCH 31.6 (25.0-35.0) pg MCHC 33.4 (31.0-37.0) g/dL RDW 11.9 (11.5-15.5) % Plt Count 250 (150-450) k/uL MPV 8.0 Neutrophils % 57 % Lymphocytes % 28 % Monocytes % 6 % Eosinophils % 6 % Basophils % 1 % Neutrophils # 2.6 (1.3-7.7) k/uL Lymphocytes # 1.3 (1.0-4.8) k/uL Monocytes # 0.3 (0-1.0) k/uL Eosinophils # 0.3 (0-0.7) k/uL Basophils # 0.1 (0-0.2) k/uL PT 10.0 (9.0-12.0) sec INR 0.9 (<1.2) APTT 25.8 (22.0-30.0) sec Sodium 138 (137-145) mmol/L Potassium 4.4 (3.5-5.1) mmol/L Chloride 102 (98-107) mmol/L Carbon Dioxide 27 (22-30) mmol/L Anion Gap 9 mmol/L BUN 10 (7-17) mg/dL Creatinine 0.61 (0.52-1.04) mg/dL Est GFR (CKD-EPI)AfAm >90 (>60 ml/min/1.73 sqM) Est GFR (CKD-EPI)NonAf >90 (>60 ml/min/1.73 sqM) Glucose 109 H (74-99) mg/dL Calcium 8.7 (8.4-10.2) mg/dL Total Bilirubin 0.8 (0.2-1.3) mg/dL AST 29 (14-36) U/L ALT 23 (4-34) U/L Alkaline Phosphatase 100 (38-126) U/L Total Protein 6.9 (6.3-8.2) g/dL Albumin 4.5 (3.5-5.0) g/dL Urine Color Urine Appearance (Clear) Urine pH (5.0-8.0) Ur Specific [place] (1.001-1.035) Urine Protein (Negative) Urine Glucose (UA) (Negative) Urine Ketones (Negative) Urine Blood (Negative) Urine Nitrite (Negative) Urine Bilirubin (Negative) Urine Urobilinogen (<2.0) mg/dL Ur Leukocyte Esterase (Negative) Coronavirus (PCR) (Not Detectd) 08/02/22 08/02/22 Range/Units 13:38 13:38 WBC (3.8-10.6) k/uL RBC (3.80-5.40) m/uL Hgb (11.4-16.0) gm/dL Hct (34.0-46.0) % MCV (80.0-100.0) fL MCH (25.0-35.0) pg MCHC (31.0-37.0) g/dL RDW (11.5-15.5) % Plt Count (150-450) k/uL MPV Neutrophils % % Lymphocytes % % Monocytes % % Eosinophils % % Basophils % % Neutrophils # (1.3-7.7) k/uL Lymphocytes # (1.0-4.8) k/uL Monocytes # (0-1.0) k/uL Eosinophils # (0-0.7) k/uL Basophils # (0-0.2) k/uL PT (9.0-12.0) sec INR (<1.2) APTT (22.0-30.0) sec Sodium (137-145) mmol/L Potassium (3.5-5.1) mmol/L Chloride (98-107) mmol/L Carbon Dioxide (22-30) mmol/L Anion Gap mmol/L BUN (7-17) mg/dL Creatinine (0.52-1.04) mg/dL Est GFR (CKD-EPI)AfAm (>60 ml/min/1.73 sqM) Est GFR (CKD-EPI)NonAf (>60 ml/min/1.73 sqM) Glucose (74-99) mg/dL Calcium (8.4-10.2) mg/dL Total Bilirubin (0.2-1.3) mg/dL AST (14-36) U/L ALT (4-34) U/L Alkaline Phosphatase (38-126) U/L Total Protein (6.3-8.2) g/dL Albumin (3.5-5.0) g/dL Urine Color Colorless Urine Appearance Clear (Clear) Urine pH 5.5 (5.0-8.0) Ur Specific [place] 1.004 (1.001-1.035) Urine Protein Negative (Negative) Urine Glucose (UA) Negative (Negative) Urine Ketones Negative (Negative) Urine Blood Negative (Negative) Urine Nitrite Negative (Negative) Urine Bilirubin Negative (Negative) Urine Urobilinogen <2.0 (<2.0) mg/dL Ur Leukocyte Esterase Negative (Negative) Coronavirus (PCR) Not Detected (Not Detectd) - Radiology Data Radiology results: report reviewed (CT brain does not reveal acute abnormality) Disposition Clinical Impression: Dizziness Disposition: HOME SELF-CARE Condition: Stable Instructions (If sedation given, give patient instructions): Dizziness (ED) Additional Instructions: Please do follow-up through primary care physician beginning of the week. Prescription sent to pharmacy. [id number] Antivert as needed. Return for off-balance, increased dizziness, weakness or confusion, worsening symptoms or any other concerns. Prescriptions: Metoclopramide HCl [Reglan] 10 mg PO Q6HR PRN #15 tablet PRN Reason: Nausea Is patient prescribed a controlled substance at d/c from ED?: No Referrals: Macario Cotton MD [Primary Care Provider] - 1-2 days Time of Disposition: 15:45
[2022-08-02 12:31] LABS: Basophils # (A) 0.1 k/uL (0-0.2); Basophils % (A) 1 %; Eosinophils # (A) 0.3 k/uL (0-0.7); Eosinophils % (A) 6 %; HCT 43.1 % (34.0-46.0); HGB 14.4 gm/dL (11.4-16.0); Lymphocytes # (A) 1.3 k/uL (1.0-4.8); Lymphocytes % (A) 28 %; MCH 31.6 pg (25.0-35.0); MCHC 33.4 g/dL (31.0-37.0); MCV 94.8 fL (80.0-100.0); Monocytes # (A) 0.3 k/uL (0-1.0); Monocytes % (A) 6 %; Neutrophils # (A) 2.6 k/uL (1.3-7.7); Neutrophils % (A) 57 %; Platelet Count 250 k/uL (150-450); RBC 4.55 m/uL (3.80-5.40); RDW 11.9 % (11.5-15.5); WBC 4.6 k/uL (3.8-10.6)
[2022-08-02 12:36] LABS: INR 0.9 (<1.2); Partial Thromboplastin Time 25.8 sec (22.0-30.0)
[2022-08-02 12:41] LABS: ALT 23 U/L (4-34); AST 29 U/L (14-36); African American GFR (CKD) >90 (>60 ml/min/1.73 sqM); Albumin 4.5 g/dL (3.5-5.0); Alkaline Phosphatase 100 U/L (38-126); Anion Gap 9 mmol/L; Blood Urea Nitrogen 10 mg/dL (7-17); Calcium 8.7 mg/dL (8.4-10.2); Carbon Dioxide 27 mmol/L (22-30); Chloride 102 mmol/L (98-107); Glucose 109 mg/dL (74-99); Non-African American GFR(CKD) >90 (>60 ml/min/1.73 sqM); Potassium 4.4 mmol/L (3.5-5.1); Sodium 138 mmol/L (137-145); Total Bilirubin 0.8 mg/dL (0.2-1.3); Total Protein 6.9 g/dL (6.3-8.2)
--- NOTE | 2022-08-02 13:13 | CT ---
EXAMINATION TYPE: CT brain wo con DATE OF EXAM: 08/29/2018 MRI COMPARISON: None INDICATION: vertigo DLP: 1098.4 mGycm, Automated exposure control for dose reduction was used. CONTRAST: None CT of the brain is performed utilizing 3 mm thick sections through the posterior fossa and 3 mm thick sections through the remaining calvarium. Study is performed within 24 hours of arrival to the hosp [facility]. No abnormal hyperdensity is present to suggest an acute intracranial hemorrhage. No mass lesion is evident. No acute infarcts are evident. Ventricles and sulci are appropriate for the patient age. Paranasal sinuses and mastoid air cells within the [id number] are clear. IMPRESSIONS: 1. No acute intracranial process. Follow-up MRI can be performed.
[2022-08-02 13:25] VITALS: RESP 20
[2022-08-02] MEDS ORDERED: LORazepam 2 MG/ML INJ IV STA (13:56)
[2022-08-02] MEDS ORDERED: SCOPOLAMINE 1 MG/72 HR PATCH TRANSDERM STA (13:56)
[2022-08-02 14:54] LABS: Appearance,Urine Clear (Clear); Bilirubin,Urine Negative (Negative); Blood,Urine Negative (Negative); Color,Urine Colorless; Glucose,Urine (UA) Negative (Negative); Ketones,Urine Negative (Negative); Leukocyte Esterase,Urine Negative (Negative); Nitrite,Urine Negative (Negative); PH, Urine 5.5 (5.0-8.0); Protein,Urine Negative (Negative); Specific Gravity,Urine 1.004 (1.001-1.035); Urobilinogen,Urine <2.0 mg/dL (<2.0)
[2022-08-02 16:12] VITALS: BP 145/84; PULSE 66
== END 2022-08-02 16:00 | disposition home or self-care (01) ==
LOC: EC 11:35
DX: R42 Dizziness and giddiness (principal); G45.9 Transient cerebral ischemic attack, unspecified; E78.5 Hyperlipidemia, unspecified; E03.9 Hypothyroidism, unspecified; Z79.890 Hormone replacement therapy; Z79.899 Other long term (current) drug therapy; Z91.040 Latex allergy status; Z91.013 Allergy to seafood; Z91.030 Bee allergy status; Z88.8 Allergy status to other drugs, medicaments and biological substances; Z88.5 Allergy status to narcotic agent; Z88.2 Allergy status to sulfonamides; Z20.822 Contact with and (suspected) exposure to COVID-19
CPT/HCPCS: 36415; 93005; 80053; 85025; 85610; 85730; 81003; 87635; 70450; 99284; 96374; 96375; 96361; J2060; J2765

== ENCOUNTER → 2022-08-14 | Outpatient (CLI) | payer BC ==
[2022-08-14 17:43] LABS: Basophils # (A) 0.03 X 10*3/uL (0.00-0.10); Basophils % (A) 0.6 %; Eosinophils # (A) 0.11 X 10*3/uL (0.04-0.35); Eosinophils % (A) 2.2 %; HCT 40.1 % (37.2-46.3); HGB 13.2 g/dL (12.0-15.0); Immature Grans, Automated 0.2 %; Lymphocytes # (A) 1.75 X 10*3/uL (0.90-5.00); MCH 30.7 pg (27.0-32.0); MCHC 32.9 g/dL (32.0-37.0); MCV 93.3 fL (80.0-97.0); Mean Platelet Volume 10.4 fL (9.5-12.2); NRBC Per 100 WBC 0 /100 WBCS (0.0-0.0); Platelet Count 259 X 10*3/uL (140-440); RDW 12.2 % (11.5-14.5)
[2022-08-14 18:28] LABS: % Iron Saturation 24.5 (12.00-45.00); African American GFR (CKD) 111.5 (60.0-200.0); Albumin 4.8 g/dL (3.8-4.9); Albumin/Globulin Ratio 2.09 (1.60-3.17); BUN/Creat Ratio 17.29 Ratio (12.00-20.00); Blood Urea Nitrogen 12.1 mg/dL (9.0-27.0); Calcium 9.3 mg/dL (8.7-10.3); Globulin 2.3 g/dL (1.6-3.3); Non-African American GFR(CKD) 96.2 (60.0-200.0); Potassium 4.3 mmol/L (3.5-5.5); T4, Free (Free Thyroxine) 1.11 ng/dL (0.800-1.800); Total Bilirubin 0.5 mg/dL (0.30-1.20); Total Protein 7.1 g/dL (6.2-8.2)
== END | disposition home or self-care (01) ==
LOC: LABWHC1 11:44
PROVIDERS: ATTEND Family Medicine
DX: E55.9 Vitamin D deficiency, unspecified (principal); E53.9 Vitamin B deficiency, unspecified; G45.9 Transient cerebral ischemic attack, unspecified; G62.9 Polyneuropathy, unspecified; R90.82 White matter disease, unspecified; R56.9 Unspecified convulsions; R20.8 Other disturbances of skin sensation
CPT/HCPCS: 36415; 80053; 82306; 82607; 83540; 83550; 84207; 84439; 84443; 84481; 85025

== ENCOUNTER → 2022-09-15 | Outpatient (CLI) | payer BC ==
[2022-09-15 14:38] LABS: Basophils # (A) 0.06 X 10*3/uL (0.00-0.10); Eosinophils # (A) 0.15 X 10*3/uL (0.04-0.35); Eosinophils % (A) 2.4 %; HCT 43.5 % (37.2-46.3); HGB 13.4 g/dL (12.0-15.0); Immature Grans, Automated 0.2 %; Lymphocytes # (A) 1.84 X 10*3/uL (0.90-5.00); Lymphocytes % (A) 29.9 %; MCH 30.9 pg (27.0-32.0); MCHC 30.8 g/dL (32.0-37.0); MCV 100.2 fL (80.0-97.0); Mean Platelet Volume 10.9 fL (9.5-12.2); Monocytes # (A) 0.51 X 10*3/uL (0.20-1.00); Monocytes % (A) 8.3 %; NRBC Per 100 WBC 0 /100 WBCS (0.0-0.0); Neutrophils # (A) 3.58 X 10*3/uL (1.80-7.70); Neutrophils % (A) 58.2 %; Platelet Count 256 X 10*3/uL (140-440); RBC 4.34 X 10*6/uL (4.10-5.20); WBC 6.15 X 10*3/uL (4.50-10.00)
[2022-09-15 15:13] LABS: ALT 22 U/L (8-44); AST 24 U/L (13-35); African American GFR (CKD) 112.2 (60.0-200.0); Albumin 4.5 g/dL (3.8-4.9); Albumin/Globulin Ratio 2.18 (1.60-3.17); Alkaline Phosphatase 98 U/L (41-126); BUN/Creat Ratio 21.28 Ratio (12.00-20.00); Blood Urea Nitrogen 14.6 mg/dL (9.0-27.0); Calcium 9.1 mg/dL (8.7-10.3); Carbon Dioxide 24.4 mmol/L (20.0-27.5); Chloride 103 mmol/L (96-109); Chol/HDL Ratio 2.18 Ratio; Globulin 2.1 g/dL (1.6-3.3); Glucose 95 mg/dL (70-110); LDL Cholesterol,Calculated 76.3 mg/dL (0.0-131.0); Non-African American GFR(CKD) 96.8 (60.0-200.0); Potassium 4.2 mmol/L (3.5-5.5); Sodium 141 mmol/L (135-145); Total Protein 6.6 g/dL (6.2-8.2); VLDL Calculation 16.92 mg/dL (5.00-40.00)
== END | disposition home or self-care (01) ==
LOC: LABWHC1 07:36
PROVIDERS: ATTEND Family Medicine
DX: Z00.00 Encounter for general adult medical examination without abnormal findings (principal)
CPT/HCPCS: 36415; 80053; 80061; 85025

== ENCOUNTER → 2023-03-22 | Outpatient (CLI) | payer BC ==
[2023-03-23 17:58] LABS: ALT 17 U/L (8-44); AST 20 U/L (13-35); Chol/HDL Ratio 2.08 Ratio; LDL Cholesterol,Calculated 79.5 mg/dL (0.0-131.0); VLDL Calculation 14.14 mg/dL (5.00-40.00)
== END | disposition home or self-care (01) ==
LOC: LABWHC1 10:42
PROVIDERS: ATTEND Internal Medicine Cardiovascular Disease
DX: I10 Essential (primary) hypertension (principal); E78.2 Mixed hyperlipidemia; E03.9 Hypothyroidism, unspecified
CPT/HCPCS: 36415; 80061; 82306; 84450; 84460

== ENCOUNTER → 2023-11-19 | Outpatient (CLI) | payer BC ==
--- NOTE | 2023-11-19 19:05 | MM ---
Reason for Exam: Screening (asymptomatic). Last mammogram was performed 1 year(s) and 5 month(s) ago. Patient History: Menarche at age 14. First Full-Term at age 18. Postmenopausal. Patient has history of breast feeding. Colorectal cancer, age 40. Hormonal Contraceptives, starting at age 19 for 27 years. 05/15/2021, US discontinued breast bx LT on the left side. 11/05/2016, MG discontinued stereo core LT on the left side. Maternal aunt had breast cancer, age 65. Risk Values: Mattie 5 year model risk: 0.9%. NCI Lifetime model risk: 5.1%. Prior Study Comparison: 12/12/2020 Right Diagnostic Mammogram, [facility]. 05/05/2021 Bilateral Diagnostic Mammogram, [facility]. 06/16/2022 Bilateral MG 3D diag mammo w/cad ZEN, [facility]. Tissue Density: The breast tissue is heterogeneously dense. This may lower the sensitivity of mammography. Findings: Analyzed By CAD. There is no suspicious group of microcalcifications or new suspicious mass in either breast. Overall Assessment: Negative, BI-RAD 1 Management: Screening Mammogram of both breasts in 1 year. . Patient should continue monthly self-breast exams. A clinical breast exam by your physician is recommended on an annual basis. This exam should not preclude additional follow-up of suspicious palpable abnormalities. Note on Mattie scores and lifetime risk: 1. A Mattie score greater than 3% is considered moderate risk. If this is the case, consider specialist referral to assess eligibility for a risk reducing agent. 2. If overall lifetime risk for the development of breast cancer is 20% or higher, the patient may qualify for future screening with alternating mammogram and breast MRI. Electronically signed and approved by: La Starkey M.D. Radiologist
== END | disposition home or self-care (01) ==
LOC: RADMAMWWP 06:59
PROVIDERS: ATTEND Obstetrics & Gynecology
DX: Z12.31 Encounter for screening mammogram for malignant neoplasm of breast (principal); Z80.3 Family history of malignant neoplasm of breast; Z78.0 Asymptomatic menopausal state
CPT/HCPCS: 77063; 77067

== ENCOUNTER → 2024-07-22 | Outpatient (CLI) | payer BC ==
[2024-07-23 10:22] LABS: ALT 15 U/L (8-44); AST 24 U/L (13-35); Chol/HDL Ratio 1.87 Ratio; LDL Cholesterol,Calculated 62.2 mg/dL (0.0-131.0)
== END | disposition home or self-care (01) ==
LOC: LABWHC1 10:58
PROVIDERS: ATTEND Internal Medicine Cardiovascular Disease
CPT/HCPCS: 36415; 80061; 84450; 84460

== ENCOUNTER → 2024-08-04 | Outpatient (CLI) | payer BC ==
[2024-08-05 02:26] LABS: Basophils # (A) 0.03 X 10*3/uL (0.00-0.10); Basophils % (A) 0.6 %; Eosinophils # (A) 0.08 X 10*3/uL (0.04-0.35); Eosinophils % (A) 1.7 %; HCT 41.9 % (37.2-46.3); HGB 13.7 g/dL (12.0-15.0); Lymphocytes # (A) 1.73 X 10*3/uL (0.90-5.00); Lymphocytes % (A) 36.3 %; MCHC 32.7 g/dL (32.0-37.0); MCV 94.8 FL (80.0-97.0); Mean Platelet Volume 10.5 FL (9.5-12.2); Monocytes # (A) 0.41 X 10*3/uL (0.20-1.00); Monocytes % (A) 8.6 %; NRBC Per 100 WBC 0 X 10*3/uL (0.00-0.01); Neutrophils # (A) 2.49 X 10*3/uL (1.80-7.70); Neutrophils % (A) 52.4 %; Platelet Count 270 X 10*3/uL (140-440); RBC 4.42 X 10*6/uL (4.10-5.20); RDW 11.7 % (11.5-14.5); WBC 4.76 X 10*3/uL (4.50-10.00)
[2024-08-05 03:19] LABS: ALT 16 U/L (8-44); AST 21 U/L (13-35); Albumin 4.7 g/dL (3.8-4.9); Albumin/Globulin Ratio 2.04 Ratio (1.60-3.17); Alkaline Phosphatase 103 U/L (41-126); BUN/Creat Ratio 15.33 Ratio (12.00-20.00); Blood Urea Nitrogen 9.2 mg/dL (9.0-27.0); Calcium 9.2 mg/dL (8.7-10.3); Carbon Dioxide 27.4 mmol/L (21.6-31.8); Chloride 102 mmol/L (96-109); Globulin 2.3 g/dL (1.6-3.3); Glucose 92 mg/dL (70-110); Potassium 3.9 mmol/L (3.5-5.5); Sodium 141 mmol/L (135-145); Total Bilirubin 0.5 mg/dL (0.3-1.2)
== END | disposition home or self-care (01) ==
LOC: LABWHC1 16:33
PROVIDERS: ATTEND Internal Medicine Hematology & Oncology
DX: C7B.02 Secondary carcinoid tumors of liver (principal); F41.9 Anxiety disorder, unspecified; G45.9 Transient cerebral ischemic attack, unspecified; Z71.3 Dietary counseling and surveillance
CPT/HCPCS: 36415; 80053; 85025; 86316

== ENCOUNTER → 2024-08-04 | Outpatient (CLI) | payer BC | END | disposition home or self-care (01) | LOC: LABWHC1 16:26 | PROVIDERS: ATTEND Otolaryngology | DX: Z53.9 Procedure and treatment not carried out, unspecified reason (principal) ==

== ENCOUNTER 2024-09-06 14:09 | Observation (INO) | payer BC ==
--- NOTE | 2024-09-06 15:48 | ED ---
General Adult HPI - General Chief complaint: Weakness Stated complaint: weakness/congestion Time Seen by Provider: 09/06/24 15:06 Source: patient Mode of arrival: wheelchair Limitations: no limitations - History of Present Illness Initial comments: Dictation was produced using [employer] dictation software. please excuse any grammatical, word or spelling errors. Chief Complaint: 59-year-old female with lightheadedness and URI symptoms History of Present Illness: Patient 59-year-old female she was at work today. She works as a elementary school librarian. She was taken out of work after her found out that he tested positive for COVID-19. Patient is been dealing with URI type symptoms for the last 2 to 3 days. States that she has been admitted in the past for lavon COVID. States that she has been feeling lightheaded. She does have some mild cough and shortness of breath. Does complain of fever chills. Patient takes flecainide. She was worried that there could be an issue with her heart especially with the COVID. She spoke with cardiology front office staff who told her she should probably come to the emergency room. The ROS documented in this emergency department record has been reviewed and confirmed by me. Those systems with pertinent positive or negative responses have been documented in the HPI. All other systems are other negative and/or noncontributory. - Related Data Home Medications Medication Instructions Recorded Confirmed ALPRAZolam [Xanax] 0.25 mg PO BID PRN 04/16/14 05/15/21 Dicyclomine [Bentyl] 10 mg PO TID PRN 04/16/14 05/15/21 Famotidine [Pepcid] 10 mg PO DAILY PRN 04/16/14 05/15/21 Meclizine [Antivert] 25 mg PO Q8HR PRN 05/28/14 05/15/21 Albuterol Inhaler [Ventolin Hfa 2 puff INHALATION RT-Q6H PRN 06/11/14 05/15/21 Inhaler] Fluticasone Propionate [Flonase] 1 spray EA NOSTRIL DAILY PRN 11/05/14 05/15/21 Levothyroxine Sodium [Synthroid] 25 mcg PO DAILY 11/05/14 05/15/21 Flecainide [Tambocor] 50 mg PO Q12HR 11/11/14 05/15/21 Montelukast [Singulair] 10 mg PO HS 09/18/17 05/15/21 Multivitamins, Thera [Multivitamin 1 tab PO DAILY 09/19/17 05/15/21 (formulary)] Ergocalciferol [Vitamin D2 (1250 2,000 mcg PO DAILY 05/15/21 05/15/21 Mcg = [id number] Iu)] Previous Rx's Medication Instructions Recorded Cyclobenzaprine [Flexeril] 10 mg PO TID PRN #90 tab 06/12/14 atenoloL [Tenormin] 12.5 mg PO HS #30 dose 09/19/17 Atorvastatin [Lipitor] 10 mg PO DAILY #30 tab 08/29/18 Clopidogrel [Plavix] 75 mg PO DAILY #30 tablet 08/29/18 Metoclopramide HCl [Reglan] 10 mg PO Q6HR PRN #15 tablet 08/02/22 Allergies Allergy/AdvReac Type Severity Reaction Status Date / Time venom-honey bee Allergy Severe Swelling Verified 09/06/24 14:22 [bee venom (honey bee)] chlorhexidine Allergy Rash/Hives Verified 09/06/24 14:22 latex Allergy Rash/Hives, Verified 09/06/24 14:22 itching shellfish derived Allergy per Verified 09/06/24 14:22 allergy testing tramadol Allergy Nausea & Verified 09/06/24 14:22 Vomiting codeine AdvReac Confusion Verified 09/06/24 14:22 hydrocodone bitartrate AdvReac dizziness Verified 09/06/24 14:22 [From [place]] sulfamethoxazole AdvReac Rapid Verified 09/06/24 14:22 [From Bactrim] Heart Rate trimethoprim [From Bactrim] AdvReac Rapid Verified 09/06/24 14:22 Heart Rate adhesive steri-strips Allergy itching,wel Uncoded 09/06/24 14:22 ts shrimp Allergy per Uncoded 09/06/24 14:22 allergy testing narcotics AdvReac Nausea Uncoded 09/06/24 14:22 Review of Systems ROS Statement: Those systems with pertinent positive or pertinent negative responses have been documented in the HPI. ROS Other: All systems not noted in ROS Statement are negative. Past Medical History Past Medical History: Cancer, CVA/TIA, Hyperlipidemia, Thyroid Disorder Additional Past Medical History / Comment(s): colon CA (removed.) closed head injury 2004 , heart "regurgitation", vertigo, hypothyroid, pt think she has atrial fibrillation. pt c/o multiple tumors History of Any Multi-Drug Resistant Organisms: None Reported Past Surgical History: Appendectomy, Bowel Resection, Section, Cholecystectomy, Orthopedic Surgery, Tonsillectomy Additional Past Surgical History / Comment(s): Lasik, rt foot bunionectomy, nasal surgery, HEART CATH. resection 2009,neck surgery T 4,5,6,7? right wrist surgery Past Anesthesia/Blood Transfusion Reactions: Family History of Problems w/ Anesthesia, Motion Sickness, Postoperative Nausea & Vomiting (PONV) Additional Past Anesthesia/Blood Transfusion Reaction / Comment(s): dizziness and low BP, diff IV starts. pt mother has diff coming out of anesthesia. Past Psychological History: No Psychological Hx Reported Smoking Status: Never smoker Past Alcohol Use History: Occasional Past Drug Use History: None Reported - Past Family History Father Family Medical History: Cancer Additional Family Medical History / Comment(s): lung CA Mother Family Medical History: Cancer Additional Family Medical History / Comment(s): colon CA Sister(s) Family Medical History: Cancer Additional Family Medical History / Comment(s): thyroid CA General Exam - General Exam Comments Initial Comments: PHYSICAL EXAM: General Impression: Alert and oriented x3, not in acute distress HEENT: Normocephalic atraumatic, extra-ocular movements intact, pupils equal and reactive to light bilaterally, mucous membranes moist. Cardiovascular: Heart regular rate and rhythm Chest: Able to complete full sentences, no retractions, no tachypnea Abdomen: abdomen soft, non-tender, non-distended, no organomegaly Musculoskeletal: Pulses present and equal in all extremities, no peripheral edema Motor: no focal deficits noted Neurological: CN II-XII grossly intact, no focal motor or sensory deficits noted Skin: Intact with no visualized rashes Psych: Normal affect and mood Limitations: no limitations Course Vital Signs 09/06/24 14:19 Temperature 99.6 F Pulse Rate 78 Respiratory 20 Rate Blood Pressure 134/77 O2 Sat by Pulse 97 Oximetry EKG Findings - EKG Comments: EKG Findings:: My EKG interpretation: Ventricular rate 73, sinus rhythm,. 184, QRS 95, QTc 34. No NM prolongation, no QTC prolongation, no ST or T-wave changes noted. Overall, this EKG is unremarkable Medical Decision Making - Medical Decision Making Was pt. sent in by a medical professional or institution (, PA, ADMITTING COUNSELOR, urgent care, hospital, or group home...) When possible be specific @ -No Did you speak to anyone other than the patient for history (EMS, parent, family, police, friend...)? What history was obtained from this source @ -No Did you review nursing and triage notes (agree or disagree)? Why? @ -I reviewed and agree with nursing and triage notes Were old charts reviewed (outside hosp., previous admission, EMS record, old EKG, old radiological studies, urgent care reports/EKG's, group home records)? Report findings @ -No old charts were reviewed Differential Diagnosis (chest pain, altered mental status, abdominal pain women, abdominal pain men, vaginal bleeding, musculoskeletal, weakness, fever, dyspnea, syncope, headache, dizziness, GI bleed, back pain, seizure, CVA, palpatations, mental health)? @ -Differential Fever: Pneumonia, viral URI, endocarditis, myocarditis, pericarditis, otitis, sinusitis, peritonsillar Abscess, retropharyngeal Abscess, epiglottitis, peritonitis, appendicitis, Kendra cystitis, diverticulitis, hepatitis, colitis, UTI, PID, TOA, pyelonephritis, prostatitis, epididymitis, meningitis, encephalitis, pulmonary embolism, CVA, thyroid storm, pancreatitis, adrenal crisis, cavernous sinus thrombosis, this is not meant to be an all-inclusive list. EKG interpreted by me (3pts min.). @ -As above X-rays interpreted by me (1pt min.). @ -X-ray shows left lower lobe infiltrate CT interpreted by me (1pt min.). @ -None done U/S interpreted by me (1pt. min.). @ -None done What testing was considered but not performed or refused? (CT, X-rays, U/S, labs)? Why? @ -None What meds were considered but not given or refused? Why? @ -None Was smoking cessation discussed for >3mins.? @ -No Were there social determinants of health that impacted care today? How? (Homelessness, low income, unemployed, alcoholism, drug addiction, transportation, low edu. Level, literacy, decrease access to med. care, usp, rehab)? @ -No Was there de-escalation of care discussed even if they declined (Discuss DNR or withdrawal of care, Hospice)? DNR status @ -No What co-morbidities impacted this encounter? (DM, HTN, Smoking, COPD, CAD, Cancer, CVA, ARF, Chemo, Hep., AIDS, mental health diagnosis, sleep apnea, morbid obesity)? @ -None Was patient admitted / discharged? Hospital course, mention meds given and route, prescriptions, significant lab abnormalities, going to OR and other pertinent info. @ -59-year-old female to the emergency department for fever constitutional symptoms and presyncope. Patient low-grade temperature 9.6 rest of vital signs within acceptable limits. Laboratory evaluation is within acceptable limits. Viral testing negative. X of the chest shows pneumonia. Disposition options as. Patient stated that she feels significantly malaised and would prefer ove rnight admission. Patient admitted observation. Case discussed with hospitalist for admission. Patient treated with antibiotics Did you discuss the management of the patient with other professionals (professionals i.e. , PA, ADMITTING COUNSELOR, lab, RT, psych nurse, social services, civil lawyer, teacher, corporate banking officer, returned case inspector)? Give summary @ -Case discussed with hospitalist for admission Was critical care preformed (if so, how long)? @ -No Undiagnosed new problem with uncertain prognosis? @ -No Drug Therapy requiring intensive monitoring for toxicity (Heparin, Nitro, Insulin, Cardizem)? @ -No Were any procedures done? @ -No Diagnosis/symptom? Acute, or Chronic, or Acute on Chronic? Uncomplicated (without systemic symptoms) or Complicated (systemic symptoms)? @ -Pneumonia Side effects of treatment? @ -No Exacerbation, Progression, or Severe Exacerbation? @ -No Poses a threat to life or bodily function? How? (Chest pain, [place], [place], pneumonia, PE, COPD, DKA, ARF, appy, cholecystitis, CVA, Diverticulitis, Homicidal, Suicidal, threat to staff... and all critical care pts) @ -yes - Lab Data Result diagrams: 09/06/24 15:52 09/06/24 15:52 Lab Results 09/06/24 09/06/24 09/06/24 Range/Units 15:12 15:52 15:52 WBC 9.0 (3.8-10.6) k/uL RBC 4.62 (3.80-5.40) m/uL Hgb 14.7 (11.4-16.0) gm/dL Hct 44.2 (34.0-46.0) % MCV 95.6 (80.0-100.0) fL MCH 31.8 (25.0-35.0) pg MCHC 33.2 (31.0-37.0) g/dL RDW 11.7 (11.5-15.5) % Plt Count 211 (150-450) k/uL MPV 7.1 Neutrophils % 88 % Lymphocytes % 5 % Monocytes % 4 % Eosinophils % 1 % Basophils % 1 % Neutrophils # 7.9 H (1.3-7.7) k/uL Lymphocytes # 0.5 L (1.0-4.8) k/uL Monocytes # 0.4 (0-1.0) k/uL Eosinophils # 0.0 (0-0.7) k/uL Basophils # 0.1 (0-0.2) k/uL Sodium 134 L (137-145) mmol/L Potassium 4.2 (3.5-5.1) mmol/L Chloride 98 (98-107) mmol/L Carbon Dioxide 29 (22-30) mmol/L Anion Gap 7 mmol/L BUN 8 (7-17) mg/dL Creatinine 0.74 (0.52-1.04) mg/dL Est GFR (CKD-EPI)AfAm >90 (>60 ml/min/1.73 sqM) Est GFR (CKD-EPI)NonAf 90 (>60 ml/min/1.73 sqM) Glucose 131 H (74-99) mg/dL Calcium 8.8 (8.4-10.2) mg/dL Magnesium 1.9 (1.6-2.3) mg/dL Influenza Type A (PCR) Not Detected (Not Detectd) Influenza Type B (PCR) Not Detected (Not Detectd) RSV (PCR) Not Detected (Not Detectd) SARS-CoV-2 (PCR) Not Detected (Not Detectd) Disposition Clinical Impression: Pneumonia Disposition: ADMITTED IP TO THIS HOSP Condition: Fair Referrals: Macario Cotton MD [Primary Care Provider] - 1-2 days Decision Time: 17:05
[2024-09-06] MEDS: SODIUM CHLORIDE 0.9% 1,000 ML IV STA (15:55)
[2024-09-06] MEDS: ONDANSETRON 4 MG/2 ML VIAL IVP STA (15:56)
--- NOTE | 2024-09-06 16:18 | XR ---
EXAMINATION TYPE: XR chest 2V DATE OF EXAM: 09/06/2024 4:08 PM COMPARISON: 10/06/2021 CLINICAL INDICATION: Female, 59 years old with history of uri, TECHNIQUE: XR chest 2V view(s) obtained. FINDINGS: The heart size is normal. The pulmonary vasculature is normal. Appears to be a left lower lobe infiltrate more anterior at the base. Silhouetting the left heart bor logan is not identified.. IMPRESSION: 1. Anterior portion left lower lobe infiltrate. Correlate for pneumonia. Follow-up recommended [facility], Workstation: [facility], 09/06/2024 4:16 PM
[2024-09-06 16:20] LABS: Basophils # (A) 0.1 k/uL (0-0.2); Basophils % (A) 1 %; Eosinophils % (A) 1 %; HCT 44.2 % (34.0-46.0); HGB 14.7 gm/dL (11.4-16.0); Lymphocytes # (A) 0.5 k/uL (1.0-4.8); Lymphocytes % (A) 5 %; MCH 31.8 pg (25.0-35.0); MCHC 33.2 g/dL (31.0-37.0); MCV 95.6 fL (80.0-100.0); Mean Platelet Volume 7.1; Monocytes # (A) 0.4 k/uL (0-1.0); Monocytes % (A) 4 %; Neutrophils # (A) 7.9 k/uL (1.3-7.7); Neutrophils % (A) 88 %; Platelet Count 211 k/uL (150-450); RBC 4.62 m/uL (3.80-5.40); RDW 11.7 % (11.5-15.5)
[2024-09-06 16:26] LABS: African American GFR (CKD) >90 (>60 ml/min/1.73 sqM); Anion Gap 7 mmol/L; Blood Urea Nitrogen 8 mg/dL (7-17); Calcium 8.8 mg/dL (8.4-10.2); Carbon Dioxide 29 mmol/L (22-30); Chloride 98 mmol/L (98-107); Glucose 131 mg/dL (74-99); Magnesium 1.9 mg/dL (1.6-2.3); Non-African American GFR(CKD) 90 (>60 ml/min/1.73 sqM); Potassium 4.2 mmol/L (3.5-5.1); Sodium 134 mmol/L (137-145)
[2024-09-06] MEDS: cefTRIAXone IN SWFI 1,000 MG/10 ML SYRINGE IVP STA (16:35)
[2024-09-06] MEDS: KETOROLAC 15 MG/ML 1 ML VIAL IVP STA (16:35)
[2024-09-06] MEDS: AZITHROMYCIN 500 MG in SODIUM CHLORIDE 0.9% 250 ML IVPB STA (16:36)
[2024-09-06] MEDS ORDERED: PNEUMONIA PROTOCOL UTILIZED 1 EACH MISC PO PRN (17:00)
[2024-09-06] MEDS: ACETAMINOPHEN TAB 500 MG TAB PO STA (19:20)
[2024-09-07] MEDS: ACETAMINOPHEN TAB 325 MG TAB PO PRN (03:08)
[2024-09-07] MEDS ORDERED: CYCLOBENZAPRINE 10 MG TAB PO PRN (04:32)
[2024-09-07] MEDS: LEVOTHYROXINE 25 MCG TAB PO SCH (06:12)
[2024-09-07] MEDS: MULTIVITAMINS, THERA 1 EACH TAB PO SCH (07:56)
[2024-09-07] MEDS: CHOLECALCIFEROL 25 MCG (1000 IU) TABLET PO SCH (07:56)
[2024-09-07] MEDS: CLOPIDOGREL 75 MG TAB PO SCH (07:57)
[2024-09-07] MEDS: FLECAINIDE 50 MG TAB PO SCH (07:57)
--- NOTE | 2024-09-07 08:51 | XR ---
EXAMINATION TYPE: XR chest 1V portable DATE OF EXAM: 09/07/2024 6:50 AM COMPARISON: None CLINICAL INDICATION: Female, 59 years old with history of pneumonia; TECHNIQUE: XR chest 1V portable Frontal view of the chest. FINDINGS: Lungs/Pleura: Airspace opacities in the lower chest seen on lateral view. There is no evidence of ple ural effusion, focal consolidation, or pneumothorax. Pulmonary vascularity: Unremarkable. Heart/mediastinum: Cardiomediastinal silhouette is unremarkable. Musculoskeletal: No acute osseous pathology. There is fixation hardware in the lower cervical spine. IMPRESSION: Airspace opacity seen on lateral view correlate for pneumonia. [facility], , 09/07/2024 8:48 AM
[2024-09-07] MEDS: AZITHROMYCIN 500 MG TAB PO SCH (09:00)
[2024-09-07] MEDS ORDERED: [UNRECOGNIZED DRUG - OTHER] PO SCH (09:00)
[2024-09-07 13:58] VITALS: BMI 30.4
[2024-09-07] MEDS: ONDANSETRON ODT 4 MG TAB PO PRN (15:06)
[2024-09-07 17:27] LABS: Glucose,Whole Blood 131 mg/dL (70-110)
[2024-09-07] MEDS: MECLIZINE 25 MG TAB PO PRN (18:04)
[2024-09-07] MEDS: MONTELUKAST 10 MG TAB PO SCH (22:09)
[2024-09-07] MEDS: ATORVASTATIN 10 MG TAB PO SCH (22:09)
[2024-09-07] MEDS: atenoloL 25 MG TAB PO SCH (22:10)
--- NOTE | 2024-09-07 22:52 | P.HPIM ---
History of Present Illness H&P Date: 09/07/24 Chief Complaint: Shortness of breath Patient is a 59-year-old female with a past medical history of CVA/TIA, paroxysmal atrial fibrillation not on anticoagulation, hyperlipidemia, hypothyroidism, history of colon cancer status post bowel resection and other medical problems presents to ER with complaints of shortness of breath and feeling lightheaded. Patient is also having trouble taking deep breaths. She has been dealing with upper respiratory infection over the past 2 to 3 days with mild cough and subjective fevers and chills. She felt like chest cold. Her was tested positive for COVID-19 infection. She took off her work. She thought she may have COVID and tested at home which came out negative and also tested in the hospital which is also negative as well. Denied any chest pain. No leg swelling. Denied any recent travel. Due to her cardiac history she thought she may have issues with her heartbeat. COVID infection and called director of enrollment office. Patient was told by office staff that to go to the ER. EKG on admission showed sinus rhythm. Chest x-ray showed anterior portion left lower lobe infiltrate. Correlate for pneumonia. Laboratory data showed WBC 9.0 hemoglobin 14.7 platelets 211 sodium 134 potassium 4.2 chloride 98 bicarbonate 29 BUN 18 creatinine 0.74 and blood sugar 131 and magnesium 1.9 and procalcitonin level is 0.07 Influenza AB RSV and COVID-19 PCR not detected. Review of Systems Constitutional: Patient denies any fever or chills . No generalized weakness or weight loss. Abdomen: Patient denied nausea vomiting and diarrhea and abdominal pain. Cardiovascular: Patient denies any chest pain or short of breath no palpitations. No leg swelling Respiratory: Cough congestion and shortness of breath Neurologic: Patient denied any numbness or tingling. no headache. Musculoskeletal: Patient denies any complaints of joint swelling or deformity. Skin: Negative Psychiatric: Negative Endocrine: No heat or cold intolerance. No recent weight gain. Genitourinary: No dysuria or hematuria. All other 14 point ROS negative except the above Past Medical History Past Medical History: Cancer, CVA/TIA, Hyperlipidemia, Thyroid Disorder Additional Past Medical History / Comment(s): colon CA (removed.) closed head injury 2004 , heart "regurgitation", vertigo, hypothyroid, pt think she has atrial fibrillation. pt c/o multiple tumors History of Any Multi-Drug Resistant Organisms: None Reported Past Surgical History: Appendectomy, Bowel Resection, Section, Cholecystectomy, Orthopedic Surgery, Tonsillectomy Additional Past Surgical History / Comment(s): Lasik, rt foot bunionectomy, nasal surgery, HEART CATH. resection 2010,neck surgery T 4,5,6,7? right wrist surgery Past Anesthesia/Blood Transfusion Reactions: Family History of Problems w/ Anesthesia, Motion Sickness, Postoperative Nausea & Vomiting (PONV) Additional Past Anesthesia/Blood Transfusion Reaction / Comment(s): dizziness and low BP, diff IV starts. pt mother has diff coming out of anesthesia. Past Psychological History: No Psychological Hx Reported Smoking Status: Never smoker Past Alcohol Use History: Occasional Past Drug Use History: None Reported - Past Family History Father Family Medical History: Cancer Additional Family Medical History / Comment(s): lung CA Mother Family Medical History: Cancer Additional Family Medical History / Comment(s): colon CA Sister(s) Family Medical History: Cancer Additional Family Medical History / Comment(s): thyroid CA Medications and Allergies Home Medications Medication Instructions Recorded Confirmed Type ALPRAZolam [Xanax] 0.25 mg PO BID PRN 04/16/14 09/06/24 History Meclizine [Antivert] 25 mg PO Q8HR PRN 05/28/14 09/06/24 History Cyclobenzaprine [Flexeril] 10 mg PO TID PRN #90 tab 06/12/14 09/06/24 Rx Levothyroxine Sodium [Synthroid] 25 mcg PO DAILY 11/05/14 09/06/24 History Flecainide [Tambocor] 50 mg PO Q12HR 11/11/14 09/06/24 History Montelukast [Singulair] 10 mg PO HS 09/18/17 09/06/24 History Multivitamins, Thera [Multivitamin 1 tab PO DAILY 09/19/17 09/06/24 History (formulary)] Clopidogrel [Plavix] 75 mg PO DAILY #30 tablet 08/29/18 09/06/24 Rx Algae Supplement 1 tab PO DAILY 09/06/24 09/06/24 History Atorvastatin [Lipitor] 10 mg PO HS 09/06/24 09/06/24 History Cholecalciferol (Vitamin D3) 75 mcg PO DAILY 09/06/24 09/06/24 History [Vitamin D3 (3000 Iu)] Lanreotide Acetate 1 dose INJ QMONTHLY 09/06/24 09/06/24 History Ondansetron Odt [Zofran Odt] 8 mg PO Q8HR PRN 09/06/24 09/06/24 History atenoloL [Tenormin] 12.5 mg PO HS 09/06/24 09/06/24 History Allergies Allergy/AdvReac Type Severity Reaction Status Date / Time venom-honey bee Allergy Severe Swelling Verified 09/06/24 17:23 [bee venom (honey bee)] chlorhexidine Allergy Rash/Hives Verified 09/06/24 17:23 latex Allergy Rash/Hives, Verified 09/06/24 17:23 itching shellfish derived Allergy per Verified 09/06/24 17:23 allergy testing codeine AdvReac Confusion Verified 09/06/24 17:23 hydrocodone bitartrate AdvReac dizziness Verified 09/06/24 17:23 [From [place]] sulfamethoxazole AdvReac Rapid Verified 09/06/24 17:23 [From Bactrim] Heart Rate tramadol AdvReac Nausea & Verified 09/06/24 17:23 Vomiting trimethoprim [From Bactrim] AdvReac Rapid Verified 09/06/24 17:23 Heart Rate adhesive steri-strips Allergy itching,wel Uncoded 09/06/24 17:23 ts shrimp Allergy per Uncoded 09/06/24 17:23 allergy testing narcotics AdvReac Nausea & Uncoded 09/06/24 17:23 dizziness Physical Exam Vitals: Vital Signs Temp Pulse Pulse Resp BP BP Pulse Ox 09/07/24 10:03 18 09/07/24 09:02 99.8 F H 09/07/24 06:46 101.3 F H 71 18 130/76 97 09/07/24 00:25 99.4 F 66 18 147/79 98 09/06/24 20:37 99.5 F 09/06/24 20:00 99.5 F 71 18 129/70 93 L 09/06/24 19:09 101.8 F H 80 19 157/86 97 09/06/24 17:14 99.6 F 81 20 131/72 94 L 09/06/24 14:19 99.6 F 78 20 134/77 97 Intake and Output 09/06/24 09/07/24 09/07/24 22:59 06:59 14:59 Intake Total 540 250 Balance 540 250 Intake: Oral 540 250 Other: # Voids 2 2 Weight 96.162 kg PHYSICAL EXAMINATION: Patient is lying in the bed comfortably, no acute distress, awake alert and oriented.. HEENT: Normocephalic. Neck is supple. Pupils reactive. Nostrils clear. Oral cavity is moist. Neck reveals no JVD, carotid bruits, or thyromegaly. CHEST EXAMINATION: Trachea is central. Symmetrical expansion. Left basilar coarse sounds. No wheezing or rhonchi nonlabored breathing. CARDIAC: Normal S1, S2 with no gallops. No murmurs ABDOMEN: Soft. Bowel sounds normal. No organomegaly. No abdominal bruits. Extremities: reveal no edema. No clubbing or cyanosis Neurologically awake, alert, oriented x3 with well-coordinated movements. No focal deficits noted Skin: No rash or skin lesions. Psychiatric: Coperative. Nonsuicidal Musculoskeletal: No joint swelling or deformity. Normal range of motion. Results CBC & Chem 7: 09/06/24 15:52 09/06/24 15:52 Labs: Abnormal Lab Results - Last 24 Hours (Table) 09/06/24 09/06/24 Range/Units 15:52 15:52 Neutrophils # 7.9 H (1.3-7.7) k/uL Lymphocytes # 0.5 L (1.0-4.8) k/uL Sodium 134 L (137-145) mmol/L Glucose 131 H (74-99) mg/dL Thrombosis Risk Factor Assmnt - DVT/VTE Prophylaxis DVT/VTE Prophylaxis: Pharmacologic Prophylaxis ordered Assessment and Plan Assessment: Shortness of breath likely due to acute CHF and possible pneumonia Cough, shortness of breath and chest cold like symptoms x 2 days. Patient's has been tested positive for COVID-19 infection. Paroxysmal atrial fibrillation. Currently on flecainide and Tenormin. History of CVA/TIA Hyperlipidemia Hypothyroidism History of colon cancer status post bowel resection GI levofloxacin with PPI heparin subcu Plan: Patient will be continued on telemonitoring. Continue with flecainide. Continue the antibiotics empirically with ceftriaxone azithromycin. Symptomatic management for cough. Patient will be given Lasix IV 20 mg x 1 and proBNP level was ordered. Cardiology was consulted for evaluation due to history of A-fib and possible CHF. Continue with statins and Plavix. Patient is tested negative for COVID-19 infection at home as well as in the hospital. Continue to monitor symptoms and follow-up closely. Time with Patient: Greater than 30
--- NOTE | 2024-09-07 23:45 | CT ---
EXAMINATION TYPE: CT brain wo con DATE OF EXAM: 09/07/2024 8:49 PM COMPARISON: 08/02/2022. CLINICAL INDICATION: Female, 59 years old with history of dizziness, AMS, dizziness and AMS. TECHNIQUE: Brain: Axial CT images of the brain were obtained with coronal and sagittal reformats created and rev iewed. Contrast used: None. Oral contrast used: None. CT DLP: 1154.4 mGycm, Automated exposure control for dose reduction was used. FINDINGS: Brain: Extra-axial spaces: No abnormal extra-axial fluid collections. Ventricular system: Within normal limits Cerebral parenchyma: No acute intraparenchymal hemorrhage or mass effect. The singh-white junction is well differentiated. Cerebellum: Unremarkable. Mass effect: No evidence of midline shift. Intracranial vasculature: unremarkable Soft tissues: Normal. Calvarium/osseous structures: No depressed skull fracture. Paranasal sinuses and mastoid air cells: Mild scattered paranasal sinus disease. Visualized orbits: Orbital contents are intact. IMPRESSION: No acute intracranial process. [facility], , 09/07/2024 11:43 PM
[2024-09-07] MEDS: FUROSEMIDE 10 MG/ML 2 ML VIAL IV ONE (23:52)
[2024-09-07] MEDS: HEPARIN SODIUM,PORCINE 5,000 UNIT/ML 1 ML VIAL SQ SCH (23:52)
--- NOTE | 2024-09-08 08:14 | XR ---
EXAMINATION TYPE: XR chest 1V DATE OF EXAM: 09/08/2024 6:49 AM COMPARISON: Chest radiographs from 09/07/2024 CLINICAL INDICATION: Female, 59 years old with history of CHF; [facility] TECHNIQUE: XR chest 1V Frontal view of the chest. FINDINGS: Lungs/Pleura: Airspace opacities in the left lung base. There is no evidence of pleural effusion, foc al consolidation, or pneumothorax. Pulmonary vascularity: Unremarkable. Heart/mediastinum: Cardiomediastinal silhouette is unremarkable. Musculoskeletal: No acute osseous pathology. There is fixation hardware in the lower cervical spine. IMPRESSION: Left basilar airspace opacities similar to prior given differences in technique correlate for pneumon ia, [facility], , 09/08/2024 8:12 AM
[2024-09-08 08:47] LABS: Basophils # (A) 0.03 X 10*3/uL (0.00-0.10); Basophils % (A) 0.4 %; Eosinophils # (A) 0.17 X 10*3/uL (0.04-0.35); Eosinophils % (A) 2.5 %; HGB 12.4 g/dL (12.0-15.0); Lymphocytes # (A) 1.05 X 10*3/uL (0.90-5.00); Lymphocytes % (A) 15.5 %; MCH 30.5 pg (27.0-32.0); MCHC 32.6 g/dL (32.0-37.0); MCV 93.4 FL (80.0-97.0); Mean Platelet Volume 10.4 FL (9.5-12.2); Monocytes # (A) 0.43 X 10*3/uL (0.20-1.00); Monocytes % (A) 6.4 %; NRBC Per 100 WBC 0 X 10*3/uL (0.00-0.01); Neutrophils # (A) 5.06 X 10*3/uL (1.80-7.70); Neutrophils % (A) 74.9 %; Platelet Count 206 X 10*3/uL (140-440); RBC 4.07 X 10*6/uL (4.10-5.20); RDW 11.7 % (11.5-14.5); WBC 6.76 X 10*3/uL (4.50-10.00)
[2024-09-08 08:57] LABS: BUN/Creat Ratio 11.86 Ratio (12.00-20.00); Blood Urea Nitrogen 8.3 mg/dL (9.0-27.0); Calcium 8.2 mg/dL (8.7-10.3); Carbon Dioxide 26.8 mmol/L (21.6-31.8); Chloride 103 mmol/L (96-109); Glucose 151 mg/dL (70-110); Potassium 3.5 mmol/L (3.5-5.5); Sodium 140 mmol/L (135-145)
--- NOTE | 2024-09-08 12:11 | P.CRDCN ---
History of Present Illness History of present illness: HISTORY OF PRESENT ILLNESS: This is a 59-year-old female with a past medical history significant for SVT status post ablation, hypertension, and hyperlipidemia. Patient follows in the office with Dr. Garza. We have been asked to see the patient in consultation for paroxysmal atrial fibrillation. Patient examined at the bedside. Patient states her family has been sick with Covid. She reports she has been short of breath at home. She reports nausea as well. She tested negative for Covid. She was found to have pneumonia and is receiving antibiotics. She reports occasional dizziness since being in the hospital, once in the bed when rolling over and the other time when she was ambulating back from the bathroom. EKG on admission reveals sinus mechanism. Telemetry reveals sinus mechanism with no evidence of atrial fibrillation. DIAGNOSTICS: - EKG reveals sinus mechanism with no signs of acute ischemia - Chest xray anterior portion left lower lobe infiltrate. Correlate for pneum onia. - Laboratory data: WBC 9.0. Hemoglobin 14.7. Platelet count 211. Sodium 134. Potassium 4.2. BUN 8. Creatinine 0.74. Procalcitonin 0.07. Magnesium 1.9. - Current home cardiac medications include flecainide 50 mg twice a day, Lipitor 10 mg at night, Plavix 75 mg daily, atenolol 12.5 mg at night - Most recent echocardiogram obtained in May 2024 revealed ejection fraction 65%, borderline LVH, mild TR, mild MR - Patient underwent stress testing in March 2020 which was negative for ischemia REVIEW OF SYSTEMS: At the time of my exam: CONSTITUTIONAL: Denies fever or chills. HEENT: Denies blurred vision, vision changes, or eye pain. Denies hemoptysis CARDIOVASCULAR: Denies chest pain. Denies orthopnea. Denies PND. Denies palpitations RESPIRATORY: Denies shortness of breath. GASTROINTESTINAL: Denies abdominal pain. Denies nausea or vomiting. HEMATOLOGIC: Denies bleeding disorders. GENITOURINARY: Denies any blood in urine. SKIN: Denies pruitis. Denies rash. PHYSICAL EXAM: VITAL SIGNS: Reviewed. GENERAL: Well-developed in no acute distress. HEENT: Head is normocephalic. Pupils are equal, round. Sclerae anicteric. Mucous membranes of the mouth are moist. Neck supple. No JVD or thyromegaly LUNGS: Respirations even and unlabored. Lungs essentially clear to auscultation bilaterally. HEART: Regular rate and rhythm. S1 and S2 heard. ABDOMEN: Soft. Nondistended. Nontender. EXTREMITIES: Normal range of motion. No clubbing or cyanosis. Peripheral pulses intact. No lower extremity edema NEUROLOGIC: Awake and alert. Oriented x 3. ASSESSMENT: Left lower lobe pneumonia History of paroxysmal SVT, status post ablation, maintained on flecainide and atenolol Atrial fibrillation, ruled out, EKG and telemetry reveal sinus mechanism Hypertension Hyperlipidemia Obesity: BMI 30.4 Closed head injury History of vertigo History of TIA PLAN: Patient's dizziness appears to be more vertigo in nature No need to repeat echocardiogram as this was performed in May 2024 Resume home cardiac medications Continue telemetry monitoring No evidence of atrial fibrillation on telemetry monitoring or EKG No evidence of congestive heart failure No further inpatient recommendations from a cardiac standpoint We will sign off. Please reconsult if needed. Nurse practitioner note has been reviewed by physician. Signing provider agrees with the documented findings, assessment, and plan of care documented by [employer] as a scribe. Past Medical History Past Medical History: Cancer, CVA/TIA, Hyperlipidemia, Thyroid Disorder Additional Past Medical History / Comment(s): colon CA (removed.) closed head injury 2004 , heart "regurgitation", vertigo, hypothyroid, pt think she has atrial fibrillation. pt c/o multiple tumors History of Any Multi-Drug Resistant Organisms: None Reported Past Surgical History: Appendectomy, Bowel Resection, Section, Cholecystectomy, Orthopedic Surgery, Tonsillectomy Additional Past Surgical History / Comment(s): Lasik, rt foot bunionectomy, nasal surgery, HEART CATH. resection 2009,neck surgery T 4,5,6,7? right wrist surgery Past Anesthesia/Blood Transfusion Reactions: Family History of Problems w/ Anesthesia, Motion Sickness, Postoperative Nausea & Vomiting (PONV) Additional Past Anesthesia/Blood Transfusion Reaction / Comment(s): dizziness an d low BP, diff IV starts. pt mother has diff coming out of anesthesia. Past Psychological History: No Psychological Hx Reported Smoking Status: Never smoker Past Alcohol Use History: Occasional Past Drug Use History: None Reported - Past Family History Father Family Medical History: Cancer Additional Family Medical History / Comment(s): lung CA Mother Family Medical History: Cancer Additional Family Medical History / Comment(s): colon CA Sister(s) Family Medical History: Cancer Additional Family Medical History / Comment(s): thyroid CA Medications and Allergies Home Medications Medication Instructions Recorded Confirmed Type ALPRAZolam [Xanax] 0.25 mg PO BID PRN 04/16/14 09/06/24 History Meclizine [Antivert] 25 mg PO Q8HR PRN 05/28/14 09/06/24 History Cyclobenzaprine [Flexeril] 10 mg PO TID PRN #90 tab 06/12/14 09/06/24 Rx Levothyroxine Sodium [Synthroid] 25 mcg PO DAILY 11/05/14 09/06/24 History Flecainide [Tambocor] 50 mg PO Q12HR 11/11/14 09/06/24 History Montelukast [Singulair] 10 mg PO HS 09/18/17 09/06/24 History Multivitamins, Thera [Multivitamin 1 tab PO DAILY 09/19/17 09/06/24 History (formulary)] Clopidogrel [Plavix] 75 mg PO DAILY #30 tablet 08/29/18 09/06/24 Rx Algae Supplement 1 tab PO DAILY 09/06/24 09/06/24 History Atorvastatin [Lipitor] 10 mg PO HS 09/06/24 09/06/24 History Cholecalciferol (Vitamin D3) 75 mcg PO DAILY 09/06/24 09/06/24 History [Vitamin D3 (3000 Iu)] Lanreotide Acetate 1 dose INJ QMONTHLY 09/06/24 09/06/24 History Ondansetron Odt [Zofran Odt] 8 mg PO Q8HR PRN 09/06/24 09/06/24 History atenoloL [Tenormin] 12.5 mg PO HS 09/06/24 09/06/24 History Allergies Allergy/AdvReac Type Severity Reaction Status Date / Time venom-honey bee Allergy Severe Swelling Verified 09/06/24 17:23 [bee venom (honey bee)] chlorhexidine Allergy Rash/Hives Verified 09/06/24 17:23 latex Allergy Rash/Hives, Verified 09/06/24 17:23 itching shellfish derived Allergy per Verified 09/06/24 17:23 allergy testing codeine AdvReac Confusion Verified 09/06/24 17:23 hydrocodone bitartrate AdvReac dizziness Verified 09/06/24 17:23 [From Hemphill] sulfamethoxazole AdvReac Rapid Verified 09/06/24 17:23 [From Bactrim] Heart Rate tramadol AdvReac Nausea & Verified 09/06/24 17:23 Vomiting trimethoprim [From Bactrim] AdvReac Rapid Verified 09/06/24 17:23 Heart Rate adhesive steri-strips Allergy itching,wel Uncoded 09/06/24 17:23 ts shrimp Allergy per Uncoded 09/06/24 17:23 allergy testing narcotics AdvReac Nausea & Uncoded 09/06/24 17:23 dizziness Physical Exam Vitals: Vital Signs Temp Pulse Resp BP BP Pulse Ox 09/08/24 01:13 99.5 F 63 20 117/70 93 L 09/07/24 23:51 99.2 F 09/07/24 19:23 101 F H 72 18 152/84 94 L 09/07/24 17:49 93 L 09/07/24 17:34 74 146/81 93 L 09/07/24 13:46 98.4 F 72 18 150/82 97 09/07/24 10:03 18 09/07/24 09:02 99.8 F H Intake and Output 09/07/24 09/08/24 09/08/24 22:59 06:59 14:59 Intake Total 540 Balance 540 Intake: Oral 540 Other: Voiding Method Toilet # Voids 1 4 Results 09/08/24 04:13 09/08/24 04:13 Current Medications Generic Name Dose Route Start Last Admin Trade Name Freq PRN Reason Stop Dose Admin Acetaminophen 650 mg 09/07/24 00:58 09/08/24 06:13 Acetaminophen Tab 325 Mg Tab PO 650 mg Q6HR PRN Administration Fever and/ or Pain Alprazolam 0.25 mg 09/07/24 04:32 Alprazolam 0.25 Mg Tab PO BID PRN Anxiety Atenolol 12.5 mg 09/07/24 21:00 09/07/24 22:10 Atenolol 25 Mg Tab PO 12.5 mg HS MILADIS Administration Atorvastatin Calcium 10 mg 09/07/24 21:00 09/07/24 22:09 Atorvastatin 10 Mg Tab PO 10 mg HS MILADIS Administration Azithromycin 500 mg 09/07/24 09:00 09/07/24 09:00 Azithromycin 500 Mg Tab PO 09/08/24 09:01 500 mg DAILY MILADIS Administration Protocol Cholecalciferol 75 mcg 09/07/24 09:00 09/07/24 07:56 Cholecalciferol 25 Mcg (1000 Iu) Tablet PO 75 mcg DAILY MILADIS Administration Clopidogrel Bisulfate 75 mg 09/07/24 09:00 09/07/24 07:57 Clopidogrel 75 Mg Tab PO 75 mg DAILY MILADIS Administration Cyclobenzaprine HCl 10 mg 09/07/24 04:32 Cyclobenzaprine 10 Mg Tab PO TID PRN Muscle Spasm Flecainide Acetate 50 mg 09/07/24 09:00 09/07/24 22:09 Flecainide 50 Mg Tab PO 50 mg Q12HR MILADIS Administration Heparin Sodium (Porcine) 5,000 unit 09/08/24 00:00 09/07/24 23:52 Heparin Sodium,Porcine 5,000 Unit/Ml 1 Ml Vial SQ 5,000 unit Q8HR MILADIS Administration Ceftriaxone Sodium 2 gm/ 50 mls @ 100 mls/hr 09/07/24 09:00 09/07/24 08:11 Sodium Chloride IVPB 09/10/24 09:29 100 mls/hr Q24HR MILADIS Administration Protocol Levothyroxine Sodium 25 mcg 09/07/24 06:30 09/08/24 06:13 Levothyroxine 25 Mcg Tab PO 25 mcg DAILY@0630 MILADIS Administration Meclizine HCl 25 mg 09/07/24 04:32 09/08/24 06:48 Meclizine 25 Mg Tab PO 25 mg Q8HR PRN Administration dizziness Miscellaneous Information 1 each 09/06/24 17:00 Pneumonia Protocol Utilized 1 Each Misc PO ONCE PRN Per Protocol Montelukast Sodium 10 mg 09/07/24 21:00 09/07/24 22:09 Montelukast 10 Mg Tab PO 10 mg HS MILADIS Administration Multivitamins 1 each 09/07/24 09:00 09/07/24 07:56 Multivitamins, Thera 1 Each Tab PO 1 each DAILY MILADIS Administration Non-Formulary Medication 1 dose 09/29/24 09:00 Lanreotide Acetate [Lanreotide Acetate] INJ QMONTHLY MILADIS Ondansetron HCl 8 mg 09/07/24 04:32 09/07/24 15:06 Ondansetron Odt 4 Mg Tab PO 8 mg Q8HR PRN Administration Nausea Intake and Output 09/07/24 09/08/24 09/08/24 22:59 06:59 14:59 Intake Total 540 Balance 540 Intake: Oral 540 Other: Voiding Method Toilet # Voids 1 4 09/06/24 15:52 09/06/24 15:52
[2024-09-09] MEDS: ALPRAZolam 0.25 MG TAB PO PRN (01:35)
--- NOTE | 2024-09-09 18:06 | P.PN ---
Subjective Progress Note Date: 09/08/24 Patient is a 59-year-old female with a past medical history of CVA/TIA, paroxysmal atrial fibrillation not on anticoagulation, hyperlipidemia, hypothyroidism, history of colon cancer status post bowel resection and other medical problems presents to ER with complaints of shortness of breath and feeling lightheaded. Patient is also having trouble taking deep breaths. She has been dealing with upper respiratory infection over the past 2 to 3 days with mild cough and subjective fevers and chills. She felt like chest cold. Her was tested positive for COVID-19 infection. She took off her work. She thought she may have COVID and tested at home which came out negative and also tested in the hospital which is also negative as well. Denied any chest pain. No leg swelling. Denied any recent travel. Due to her cardiac history she thought she may have issues with her heartbeat. COVID infection and called [facility] operator office. Patient was told by office staff that to go to the ER. EKG on admission showed sinus rhythm. Chest x-ray showed anterior portion left lower lobe infiltrate. Correlate for pneumonia. Laboratory data showed WBC 9.0 hemoglobin 14.7 platelets 211 sodium 134 potas sium 4.2 chloride 98 bicarbonate 29 BUN 18 creatinine 0.74 and blood sugar 131 and magnesium 1.9 and procalcitonin level is 0.07 Influenza AB RSV and COVID-19 PCR not detected. Objective - Vital Signs Vital signs: Vital Signs Temp 99.2 F 09/08/24 08:00 Pulse 65 09/08/24 08:00 Resp 18 09/08/24 08:00 BP 112/72 09/08/24 08:00 Pulse Ox 96 09/08/24 08:00 FiO2 Intake & Output 09/07/24 09/08/24 09/08/24 18:59 06:59 18:59 Intake Total 500 540 Balance 500 540 Weight 96.162 kg Intake: Oral 500 540 Other: Voiding Method Toilet # Voids 1 4 - Exam Patient is lying in the bed comfortably, no acute distress, awake alert and oriented.. HEENT: Normocephalic. Neck is supple. Pupils reactive. Nostrils clear. Oral cavity is moist. Neck reveals no JVD, carotid bruits, or thyromegaly. CHEST EXAMINATION: Trachea is central. Symmetrical expansion. Left basilar coarse sounds. No wheezing or rhonchi nonlabored breathing. CARDIAC: Normal S1, S2 with no gallops. No murmurs ABDOMEN: Soft. Bowel sounds normal. No organomegaly. No abdominal bruits. Extremities: reveal no edema. No clubbing or cyanosis Neurologically awake, alert, oriented x3 with well-coordinated movements. No focal deficits noted Skin: No rash or skin lesions. Psychiatric: Coperative. Nonsuicidal Musculoskeletal: No joint swelling or deformity. Normal range of motion. - Labs CBC & Chem 7: 09/08/24 04:13 09/08/24 04:13 Labs: Abnormal Lab Results - Last 24 Hours (Table) 09/07/24 09/07/24 09/08/24 Range/Units 15:12 17:26 04:13 RBC (4.10-5.20) X 10*6/uL BUN 8.3 L (9.0-27.0) mg/dL BUN/Creatinine Ratio 11.86 L (12.00-20.00) Ratio Glucose 151 H (70-110) mg/dL POC Glucose (mg/dL) 131 H (70-110) mg/dL Calcium 8.2 L (8.7-10.3) mg/dL NT-Pro-B Natriuret Pep 293 H (0-125) pg/mL 09/08/24 Range/Units 04:13 RBC 4.07 L (4.10-5.20) X 10*6/uL BUN (9.0-27.0) mg/dL BUN/Creatinine Ratio (12.00-20.00) Ratio Glucose (70-110) mg/dL POC Glucose (mg/dL) (70-110) mg/dL Calcium (8.7-10.3) mg/dL NT-Pro-B Natriuret Pep (0-125) pg/mL Microbiology - Last 24 Hours (Table) 09/06/24 17:00 Blood Culture - Preliminary Blood Assessment and Plan Assessment: Shortness of breath likely due to acute CHF and possible pneumonia Cough, shortness of breath and chest cold like symptoms x 2 days. Patient's has been tested positive for COVID-19 infection. Paroxysmal atrial fibrillation. Currently on flecainide and Tenormin. History of CVA/TIA Hyperlipidemia Hypothyroidism History of colon cancer status post bowel resection GI levofloxacin with PPI heparin subcu Plan: Patient will be continued on telemonitoring. Continue with flecainide. Continue the antibiotics empirically with ceftriaxone azithromycin. Symptomatic management for cough. Patient will be given Lasix IV 20 mg x 1 and proBNP level was ordered. Cardiology was consulted for evaluation due to history of A-fib and possible CHF. Continue with statins and Plavix. Patient is tested negative for COVID-19 infection at home as well as in the hospital. Continue to monitor symptoms and follow-up closely.
--- NOTE | 2024-09-09 18:09 | P.PN ---
Subjective Progress Note Date: 09/09/24 Patient is a 59-year-old female with a past medical history of CVA/TIA, paroxysmal atrial fibrillation not on anticoagulation, hyperlipidemia, hypothyroidism, history of colon cancer status post bowel resection and other medical problems presents to ER with complaints of shortness of breath and feeling lightheaded. Patient is also having trouble taking deep breaths. She has been dealing with upper respiratory infection over the past 2 to 3 days with mild cough and subjective fevers and chills. She felt like chest cold. Her was tested positive for COVID-19 infection. She took off her work. She thought she may have COVID and tested at home which came out negative and also tested in the hospital which is also negative as well. Denied any chest pain. No leg swelling. Denied any recent travel. Due to her cardiac history she thought she may have issues with her heartbeat. COVID infection and called [facility] office. Patient was told by office staff that to go to the ER. EKG on admission showed sinus rhythm. Chest x-ray showed anterior portion left lower lobe infiltrate. Correlate for pneumonia. Laboratory data showed WBC 9.0 hemoglobin 14.7 platelets 211 sodium 134 potas sium 4.2 chloride 98 bicarbonate 29 BUN 18 creatinine 0.74 and blood sugar 131 and magnesium 1.9 and procalcitonin level is 0.07 Influenza AB RSV and COVID-19 PCR not detected. 24-hour interval change 09/09/2024 Patient is seen and evaluated with family at bedside; currently up in a chair; reports some improvement in breathing Vital signs are reviewed and are stable Lab review shows WBC of 6.7, hemoglobin of 12.4 and platelet count of 206, sodium 140, potassium 3.5, BUNs/creatinine of 8.3/0.7 blood glucose of 151 Patient has been evaluated by cardiology; symptoms likely related to pneumonia and vertigo; last echocardiogram completed in May 2024; repeat echocardiogram is not recommended; no evidence of CHF at this time --We will plan to continue IV antibiotics for another 24 hours with plans to transition to oral and discharge if patient remains stable Objective - Vital Signs Vital signs: Vital Signs Temp 98.5 F 09/09/24 06:48 Pulse 61 09/09/24 06:48 Resp 17 09/09/24 06:48 BP 115/69 09/09/24 06:48 Pulse Ox 95 09/09/24 06:48 FiO2 Intake & Output 09/08/24 09/09/24 09/09/24 18:59 06:59 18:59 Output Total 540 Balance -540 Output: Urine 540 Other: Voiding Method Toilet Toilet # Voids 2 - Exam Patient is lying in the bed comfortably, no acute distress, awake alert and oriented.. HEENT: Normocephalic. Neck is supple. Pupils reactive. Nostrils clear. Oral cavity is moist. Neck reveals no JVD, carotid bruits, or thyromegaly. CHEST EXAMINATION: Trachea is central. Symmetrical expansion. Left basilar coarse sounds. No wheezing or rhonchi nonlabored breathing. CARDIAC: Normal S1, S2 with no gallops. No murmurs ABDOMEN: Soft. Bowel sounds normal. No organomegaly. No abdominal bruits. Extremities: reveal no edema. No clubbing or cyanosis Neurologically awake, alert, oriented x3 with well-coordinated movements. No focal deficits noted Skin: No rash or skin lesions. Psychiatric: Coperative. Nonsuicidal Musculoskeletal: No joint swelling or deformity. Normal range of motion. - Labs CBC & Chem 7: 09/08/24 04:13 09/08/24 04:13 Labs: Abnormal Lab Results - Last 24 Hours (Table) 09/07/24 Range/Units 15:12 NT-Pro-B Natriuret Pep 293 H (0-125) pg/mL Microbiology - Last 24 Hours (Table) 09/06/24 17:00 Blood Culture - Preliminary Blood Assessment and Plan Assessment: Shortness of breath likely due to acute CHF and possible pneumonia Cough, shortness of breath and chest cold like symptoms x 2 days. Patient's has been tested positive for COVID-19 infection. Paroxysmal atrial fibrillation. Currently on flecainide and Tenormin. History of CVA/TIA Hyperlipidemia Hypothyroidism History of colon cancer status post bowel resection GI levofloxacin with PPI heparin subcu Plan: Patient will be continued on telemonitoring. Continue with flecainide. Continue the antibiotics empirically with ceftriaxone azithromycin. Symptomatic management for cough. Patient will be given Lasix IV 20 mg x 1 and proBNP level was ordered. Cardiology was consulted for evaluation due to history of A-fib and possible CHF. Continue with statins and Plavix. Patient is tested negative for COVID-19 infection at home as well as in the hospital. Continue to monitor symptoms and follow-up closely.
[2024-09-10 02:26] VITALS: RESP 17
[2024-09-10 08:02] VITALS: BP 147/82; PULSE 59; TEMP 98.3
[2024-09-29] MEDS ORDERED: [UNRECOGNIZED DRUG - OTHER] INJ SCH (09:00)
== END 2024-09-10 14:14 | disposition home or self-care (01) ==
LOC: EC 14:09 → 4SSUR 17:00
PROVIDERS: ADMIT Internal Medicine; ATTEND Internal Medicine
DX: J18.9 Pneumonia, unspecified organism (principal); I48.0 Paroxysmal atrial fibrillation; E03.9 Hypothyroidism, unspecified; E66.9 Obesity, unspecified; E78.5 Hyperlipidemia, unspecified; I10 Essential (primary) hypertension; Z20.822 Contact with and (suspected) exposure to COVID-19; Z68.30 Body mass index [BMI] 30.0-30.9, adult; Z79.899 Other long term (current) drug therapy; Z79.02 Long term (current) use of antithrombotics/antiplatelets; Z79.890 Hormone replacement therapy; Z85.038 Personal history of other malignant neoplasm of large intestine; Z86.73 Personal history of transient ischemic attack (TIA), and cerebral infarction without residual deficits; Z90.49 Acquired absence of other specified parts of digestive tract
CPT/HCPCS: 96376; 96366 ×4; 96367; 96372 ×4; 96375 ×2; 96361; 96365; 99285; 36415; 93005; 83880; 80048 ×2; 83735; 85025 ×2; 87040; 83036; 84145; 87636; 71045 ×2; 71046; 70450; G0378 ×5; J1644 ×4; J1940; J2405; J0456; J0696 ×5; J1885

== ENCOUNTER → 2025-01-19 | Outpatient (CLI) | payer BC ==
--- NOTE | 2025-01-19 15:13 | MM ---
Reason for Exam: Screening (asymptomatic). Last mammogram was performed 1 year(s) and 2 month(s) ago. Patient History: Menarche at age 14. First Full-Term at age 18. Postmenopausal. Patient has history of breast feeding. Colorectal cancer, age 40. Hormonal Contraceptives, starting at age 19 for 27 years. 05/15/2021, US discontinued breast bx LT on the left side. 11/05/2016, MG discontinued stereo core LT on the left side. Maternal aunt had breast cancer, age 65. Risk Values: Mattie 5 year model risk: 0.9%. NCI Lifetime model risk: 5.0%. Prior Study Comparison: 05/05/2021 Bilateral Diagnostic Mammogram, [facility]. 06/16/2022 Bilateral MG 3D diag mammo w/cad ZEN, [facility]. 11/19/2023 Bilateral MG 3D screening mammo w/cad, [facility]. Tissue Density: The breasts are heterogeneously dense, which may obscure small masses. Findings: Analyzed By CAD. There is no suspicious group of microcalcifications or new suspicious mass in either breast. Overall Assessment: Benign, BI-RAD 2 Management: Screening Mammogram of both breasts in 1 year. . Patient should continue monthly self-breast exams. A clinical breast exam by your physician is recommended on an annual basis. This exam should not preclude additional follow-up of suspicious palpable abnormalities. Note on Mattie scores and lifetime risk: 1. A Mattie score greater than 3% is considered moderate risk. If this is the case, consider specialist referral to assess eligibility for a risk reducing agent. 2. If overall lifetime risk for the development of breast cancer is 20% or higher, the patient may qualify for future screening with alternating mammogram and breast MRI. [facility], , 01/19/2025 3:10 PM. Electronically signed and approved by: Lawrence Stewart M.D. Radiolog[facility]
[2025-01-19 20:07] LABS: BUN/Creat Ratio 22.29 Ratio (12.00-20.00); Blood Urea Nitrogen 15.6 mg/dL (9.0-27.0); Calcium 9.1 mg/dL (8.7-10.3); Carbon Dioxide 25.9 mmol/L (21.6-31.8); Chloride 106 mmol/L (96-109); Glucose 95 mg/dL (70-110); Potassium 3.9 mmol/L (3.5-5.5); Sodium 142 mmol/L (135-145)
== END | disposition home or self-care (01) ==
LOC: RADMAMWWP 14:44
PROVIDERS: ATTEND Obstetrics & Gynecology
DX: Z12.31 Encounter for screening mammogram for malignant neoplasm of breast (principal); R92.333 Mammographic heterogeneous density, bilateral breasts; R53.83 Other fatigue; Z78.0 Asymptomatic menopausal state; Z80.3 Family history of malignant neoplasm of breast; Z92.0 Personal history of contraception
CPT/HCPCS: 77063; 77067; 80048; 84207